=== PATIENT | female | born 1965 | race American Indian/Alaskan Native ===

== ENCOUNTER 2016-08-22 20:00 | Emergency (ER) | payer MEDICAID ==
[2016-08-22 20:01] VITALS: BMI 34.9
[2016-08-22 20:32] VITALS: BP 120/90; PULSE 82; RESP 20; TEMP 97.8; O2SAT 98
--- NOTE | 2016-08-22 22:16 | C.PDOC ---
History Of Present Illness 51 y/o female c/o pain to both arms radiating from neck, and low back pain radiating to both knees for some time, getting worse in last week. pt takes naproxen for pain but she says it raises her blood pressure. no fever or chills. denies swelling to hands. no wrist pain. pt also c/o urinary frequency and urgency, no dysuria. no saddle anesthesia. no bladder or bowel dysfunction. Time Seen by Provider: 08/22/16 21:51 Chief Complaint (Nursing): Lower Extremity Problem/Injury History Per: Patient Past Medical History Reviewed: Historical Data, Nursing Documentation, Vital Signs Vital Signs: Last Vital Signs Temp 97.8 F 08/22/16 20:30 Pulse 82 08/22/16 20:30 Resp 20 08/22/16 20:30 BP 120/90 08/22/16 20:30 Pulse Ox 98 08/22/16 22:45 - Medical History PMH: Anemia, Asthma, Gastritis, HTN, Migraine Denies: Chronic Kidney Disease Surgical History: No Surg Hx - [facility] Procedures RADICAL EXCIS SKIN LES (08/18/14) Family History: States: Unknown Family Hx - Social History Hx Tobacco Use: Yes Hx Alcohol Use: Yes Hx Substance Use: No - Immunization History Hx Tetanus Toxoid Vaccination: No Hx Influenza Vaccination: No Hx Pneumococcal Vaccination: No Review Of Systems Constitutional: Negative for: Fever, Chills ENT: Negative for: Ear Pain Cardiovascular: Negative for: Chest Pain, Palpitations Respiratory: Negative for: Cough, Shortness of Breath Gastrointestinal: Negative for: Nausea, Vomiting, Abdominal Pain Genitourinary: Positive for: Frequency. Negative for: Hematuria Musculoskeletal: Positive for: Neck Pain, Arm Pain, Back Pain, Leg Pain Skin: Negative for: Rash Neurological: Negative for: Weakness, Numbness Physical Exam - Physical Exam Appears: Non-toxic, No Acute Distress Skin: Normal Color, Warm, Dry Head: Atraumatic, Normacephalic Neck: Normal ROM, Paracervical Tenderness Chest: Symmetrical, No Deformity, No Tenderness Respiratory: Rales, Rhonchi Back: Other (bilateral lower lumbar tenderness) Neurological/Psych: Oriented x3, Normal Speech, Normal Cognition, Normal Motor, Normal Sensation ED Course And Treatment O2 Sat by Pulse Oximetry: 98 Medical Decision Making Medical Decision Making: pt feels better after toradol, will d/c wi clinic follow up Disposition Counseled Patient/Family Regarding: Diagnosis, Need For Followup - Disposition Referrals: [facility] [Outside] Disposition: HOME/ ROUTINE Disposition Time: 22:50 Condition: IMPROVED Additional Instructions: Follow up in clinic. Take blood pressure medicaitons as prescribed. Take Tylenol or motrin for pain. Return to ER for any weakness, numbness, worsening pain or other concerns. Forms: General Discharge Instructions - Clinical Impression Clinical Impression: Cervical radiculopathy, Low back pain
[2016-08-22 22:34] LABS: RBC URINE 2 /hpf (0-3); URINE BACTERIA RARE (<OCC); URINE BILIRUBIN NEGATIVE (NEGATIVE); URINE BLOOD NEGATIVE (NEGATIVE); URINE COLOR Yellow (YELLOW); URINE GLUCOSE (UA) NORMAL (Normal); URINE KETONE NEGATIVE (NEGATIVE); URINE LEUKOCYTE ESTERASE NEG Leu/uL (Negative); URINE PROTEIN NEGATIVE (NEGATIVE); URINE UROBILINOGEN NORMAL mg/dL (0.2-1.0); WBC URINE 1 /hpf (0-5)
== END 2016-08-22 22:58 | disposition home or self-care (01) ==
LOC: C.ER 20:00
DX: M54.12 Radiculopathy, cervical region (principal); M54.5 Low back pain
CPT/HCPCS: 81001; 96372; 99284; J1885

== ENCOUNTER 2016-09-18 20:00 | Emergency (ER) | payer MEDICAID ==
[2016-09-18 20:00] VITALS: BMI 34.9
--- NOTE | 2016-09-18 20:41 | C.PDOC ---
History Of Present Illness 51 y/o female presents to ED with complaints of fever, chills, cough, and unable to sleep for the last couple days. Patient speaking in complete sentences. Denies SOB, chest pain, nausea, vomiting, or other associated symptoms. Time Seen by Provider: 09/18/16 20:41 Chief Complaint (Nursing): Cough, Cold, Congestion History Per: Patient History/Exam Limitations: no limitations Onset/Duration Of Symptoms: Days Current Symptoms Are (Timing): Still Present Associated Symptoms: Fever, Chills, Cough. denies: Vomiting, Diarrhea Ear Symptoms: Bilateral: None Recent travel outside of the [place]: No Past Medical History Reviewed: Historical Data, Nursing Documentation, Vital Signs Vital Signs: Last Vital Signs Temp 98.2 F 09/18/16 20:10 Pulse 69 09/18/16 22:08 Resp 16 09/18/16 22:08 BP 131/86 09/18/16 22:08 Pulse Ox 96 09/18/16 22:08 - Medical History PMH: Anemia, Asthma, Gastritis, HTN, Migraine - [facility] Procedures RADICAL EXCIS SKIN LES (08/18/14) Family History: States: Unknown Family Hx - Social History Hx Tobacco Use: Yes Hx Alcohol Use: Yes Hx Substance Use: No - Immunization History Hx Tetanus Toxoid Vaccination: No Hx Influenza Vaccination: No Hx Pneumococcal Vaccination: No Review Of Systems Constitutional: Positive for: Fever, Chills ENT: Negative for: Throat Pain Cardiovascular: Negative for: Chest Pain Respiratory: Positive for: Cough. Negative for: Shortness of Breath Gastrointestinal: Negative for: Nausea, Vomiting Musculoskeletal: Negative for: Neck Pain Skin: Negative for: Rash Neurological: Negative for: Headache, Dizziness Physical Exam - Physical Exam Appears: Non-toxic, Other (speaking in complete sentences) Skin: Warm, Dry Head: Atraumatic, Normacephalic Eye(s): bilateral: Normal Inspection Nose: Normal Oral Mucosa: Moist Chest: Symmetrical, Tenderness (chest wall tenderness, worse with cough) Cardiovascular: Rhythm Regular, No Murmur Respiratory: No Accessory Muscle Use, No Rales, Rhonchi (scattered), No Wheezing Gastrointestinal/Abdominal: Soft, No Tenderness Back: Normal Inspection Extremity: Normal ROM, Capillary Refill (< 2 sec. ) Neurological/Psych: Oriented x3 ED Course And Treatment - Laboratory Results Result Diagrams: 09/18/16 21:46 09/18/16 21:46 O2 Sat by Pulse Oximetry: 100 (RA) Pulse Ox Interpretation: Normal - Radiology CXR: Interpreted by Me, Viewed By Me CXR Interpretation: No: Infiltrates, Fracture, Pnemothorax Progress Note: CxR, labs, duoneb, IVFs. Reevaluation Time: 22:30 Reassessment Condition: Improved Disposition Counseled Patient/Family Regarding: Studies Performed, Diagnosis, Need For Followup, Rx Given - Disposition Disposition Time: 20:41 Condition: FAIR Additional Instructions: Follow up with dr Powell Prescriptions: Albuterol HFA [Ventolin HFA 90 mcg/actuation (8 g)] 2 puff IH [id number] #1 puff Azithromycin [Zithromax Tri-Aris] 500 mg PO DAILY #3 tablet Naproxen [Naprosyn] 1 tab PO BID PRN #25 tab PRN Reason: Pain Instructions: Upper Respiratory Infection (ED) - Clinical Impression Clinical Impression: Upper respiratory infection - Scribe Statement The provider has reviewed the documentation as recorded by the Will Ricks Provider Scribe Attestation: All medical record entries made by the Scribe were at my direction and personally dictated by me. I have reviewed the chart and agree that the record accurately reflects my personal performance of the history, physical exam, medical decision making, and the department course for this patient. I have also personally directed, reviewed, and agree with the discharge instructions and disposition.
[2016-09-18] MEDS ORDERED: Sodium Chloride 0.9% 1,000 ML IV ONE (20:46)
[2016-09-18] MEDS: Albuterol-Ipratrop 3 mg / 0.5 (3 ml) UD IH SCH ×3 (21:00→21:40)
[2016-09-18] MEDS ORDERED: Albuterol-Ipratrop 3 mg / 0.5 (3 ml) UD ONE (21:43)
[2016-09-18 21:57] LABS: BASO % 0.6 % (0.0-2.0); EOS # 0.2 K/uL (0.0-0.7); EOS % 2.5 % (0.0-4.0); HEMATOCRIT 33.6 % (34.0-47.0); LYMPH # 3.1 K/uL (1.0-4.3); LYMPH % 39.3 % (20.0-40.0); MEAN CELL VOLUME 74.2 fL (81.0-99.0); MEAN CORPUSCULAR HEMOGLOBIN 23.8 pg (27.0-31.0); MEAN CORPUSCULAR HGB CONC 32.1 g/dL (33.0-37.0); MEAN PLATELET VOLUME 7.7 fL (7.2-11.7); MONO # 0.7 K/uL (0.0-0.8); MONO % 9.4 % (0.0-10.0); NRBC % 0.1 % (0.0-2.0); RBC URINE < 1 /hpf (0-3); URINE BILIRUBIN NEGATIVE (NEGATIVE); URINE BLOOD NEGATIVE (NEGATIVE); URINE COLOR Straw (YELLOW); URINE GLUCOSE (UA) NORMAL (Normal); URINE KETONE NEGATIVE (NEGATIVE); URINE LEUKOCYTE ESTERASE NEG Leu/uL (Negative); URINE PROTEIN NEGATIVE (NEGATIVE); URINE UROBILINOGEN NORMAL mg/dL (0.2-1.0); WBC URINE 1 /hpf (0-5); WHITE BLOOD COUNT 7.8 K/uL (4.8-10.8)
[2016-09-18 21:59] LABS: CHLORIDE 101 mmol/L (98-107); POTASSIUM 3.6 mmol/L (3.6-5.2); SODIUM 138 mmol/L (132-148)
[2016-09-18 22:01] LABS: BILIRUBIN,TOTAL 0.2 mg/dL (0.2-1.3); CARBON DIOXIDE 27 mmol/L (22-30); GFR AFRICAN-AMERICAN > 60
[2016-09-18 22:02] LABS: ALB/GLOB RATIO 1.2 (1.0-2.1); ALKALINE PHOSPHATASE 75 U/L (38-126); ALT/SGPT 22 U/L (9-52); AST/SGOT 24 U/L (14-36); BLOOD UREA NITROGEN 17 mg/dL (7-17); CALCIUM 9.4 mg/dl (8.6-10.4); GLUCOSE,RANDOM 91 mg/dL (65-105); TOTAL PROTEIN 7.8 g/dL (6.3-8.3)
[2016-09-18 22:09] VITALS: RESP 16
[2016-09-18 23:37] VITALS: BP 129/73; PULSE 76; TEMP 98.5; O2SAT 98
--- NOTE | 2016-09-19 07:56 | RAD ---
HISTORY: Shortness of breath COMPARISON: 07/12/2016 TECHNIQUE: Chest PA and lateral FINDINGS: LUNGS: Diffuse increased interstitial lung markings may represent a mild venous congestion. Bibasilar breast and nipple shadows. Upper lobe granulomatous changes. PLEURA: No significant pleural effusion identified. No pneumothorax apparent. CARDIOVASCULAR: Normal. OSSEOUS STRUCTURES: No significant abnormalities. VISUALIZED UPPER ABDOMEN: Normal. OTHER FINDINGS: None. IMPRESSION: Diffuse increased interstitial lung markings may represent a mild venous congestion. Bibasilar breast and nipple shadows. Upper lobe granulomatous changes.
== END 2016-09-18 23:37 | disposition home or self-care (01) ==
LOC: C.ER 20:00
DX: J06.9 Acute upper respiratory infection, unspecified (principal); Z72.0 Tobacco use
CPT/HCPCS: 71020; 80053; 81001; 84703; 85025; 94640; 96361; 96374; 99284; J1885; J7040

== ENCOUNTER 2016-10-16 10:52 | Emergency (ER) | payer MEDICAID ==
[2016-10-16 10:53] VITALS: BMI 34.9
[2016-10-16 11:02] VITALS: BP 119/84; PULSE 84; RESP 18; TEMP 98.1; O2SAT 99
[2016-10-16] MEDS ORDERED: Lidocaine 5% Patch TD STA (11:30)
--- NOTE | 2016-10-16 11:32 | C.PDOC ---
History Of Present Illness WORSENING R LOWER BACK/R NECK PAIN X SEV MONTHS. SEEN FOR SAME BEFORE, PS NEEDS NEW PMD BUT HAS NOT FOUND ONE SINCE PRIOR ER EVAL. RELIEF W NAPROSYN "BUT PAIN KEEPS RETURNING". RADIATION R SIDE LOWER LEG, WORSE W PROLONGED WALKING. + RADIATION RUE. NO ASSOC WEAK/NUMB, FEVER, TRAUMA ALSO CO POLYURIA. NO DYSURIA, HO DM. EXAM MILD DIST NONTOXIC NEURO INTACT LIMITED ROM BACK Time Seen by Provider: 10/16/16 11:15 Chief Complaint (Nursing): Lower Extremity Problem/Injury Past Medical History Reviewed: Historical Data, Nursing Documentation, Vital Signs Vital Signs: Last Vital Signs Temp 98.1 F 10/16/16 10:58 Pulse 84 10/16/16 10:58 Resp 18 10/16/16 10:58 BP 119/84 10/16/16 10:58 Pulse Ox 99 10/16/16 12:02 - Medical History PMH: Anemia, Asthma, Gastritis, HTN, Migraine Denies: Chronic Kidney Disease - [facility] Procedures RADICAL EXCIS SKIN LES (08/18/14) Family History: States: Unknown Family Hx - Social History Hx Tobacco Use: Yes Hx Alcohol Use: Yes Hx Substance Use: No - Immunization History Hx Tetanus Toxoid Vaccination: No Hx Influenza Vaccination: No Hx Pneumococcal Vaccination: No Review Of Systems Except As Marked, All Systems Reviewed And Found Negative. Constitutional: Negative for: Fever, Chills Cardiovascular: Negative for: Chest Pain, Palpitations Respiratory: Negative for: Shortness of Breath Gastrointestinal: Negative for: Nausea, Vomiting Genitourinary: Positive for: Dysuria, Frequency Musculoskeletal: Positive for: Neck Pain, Arm Pain, Back Pain, Leg Pain Physical Exam - Physical Exam Appears: Non-toxic, No Acute Distress (MILD) Skin: Warm, Dry, No Rash Head: Atraumatic Eye(s): bilateral: Normal Inspection Oral Mucosa: Moist Lips: Normal Appearing Neck: Normal ROM Cardiovascular: Rhythm Regular, No Murmur Respiratory: Normal Breath Sounds Back: Decreased ROM (secondary to pain) Extremity: Normal ROM Neurological/Psych: Oriented x3 ED Course And Treatment O2 Sat by Pulse Oximetry: 99 Progress - Data Reviewed Data Reviewed: Lab, Old records Disposition Counseled Patient/Family Regarding: Studies Performed, Diagnosis, Need For Followup, Rx Given - Disposition Referrals: [facility] [Outside] [facility] [Outside] Disposition: HOME/ ROUTINE Disposition Time: 12:00 Condition: IMPROVED Prescriptions: Cyclobenzaprine [Flexeril] 10 mg PO TID #15 tab Lidocaine 5% [Lidoderm] 1 ea TD PRN PRN #10 patch PRN Reason: Pain, Moderate (4-7) Instructions: Sciatica (ED) Forms: Work Excuse - Clinical Impression Clinical Impression: Radiculopathy affecting upper extremity, Radiculopathy with lower extremity symptoms - Scribe Statement The provider has reviewed the documentation as recorded by the Will Simon All medical record entries made by the Sadieibabdiel were at my direction and personally dictated by me. I have reviewed the chart and agree that the record accurately reflects my personal performance of the history, physical exam, medical decision making, and the department course for this patient. I have also personally directed, reviewed, and agree with the discharge instructions and disposition.
[2016-10-16] MEDS ORDERED: Lidocaine 5% Patch TD ONE ×2 (11:37→12:11)
[2016-10-16 11:49] LABS: RBC URINE 1 /hpf (0-3); URINE BILIRUBIN NEGATIVE (NEGATIVE); URINE BLOOD NEGATIVE (NEGATIVE); URINE COLOR Yellow (YELLOW); URINE GLUCOSE (UA) NORMAL (Normal); URINE KETONE NEGATIVE (NEGATIVE); URINE LEUKOCYTE ESTERASE NEG Leu/uL (Negative); URINE PROTEIN NEGATIVE (NEGATIVE); URINE UROBILINOGEN NORMAL mg/dL (0.2-1.0); WBC URINE < 1 /hpf (0-5)
== END 2016-10-16 12:15 | disposition home or self-care (01) ==
LOC: C.ER 10:52
DX: M54.10 Radiculopathy, site unspecified (principal); I10 Essential (primary) hypertension
CPT/HCPCS: 81001; 87086; 99284; J8540

== ENCOUNTER 2016-12-09 00:56 | Emergency (ER) | payer MEDICAID ==
[2016-12-09 00:56] VITALS: BMI 34.9
[2016-12-09] MEDS ORDERED: Alum-Mag Hydrox-Simethicone Susp (30 mL) PO STA (01:33)
[2016-12-09] MEDS ORDERED: Alum-Mag Hydrox-Simethicone Susp (30 mL) ONE (01:43)
[2016-12-09 02:16] LABS: SQUAMOUS EPITHIAL 5 /hpf (0-5); URINE BILIRUBIN NEGATIVE (NEGATIVE); URINE BLOOD 1+ (NEGATIVE); URINE CLARITY Clear (Clear); URINE COLOR Straw (YELLOW); URINE GLUCOSE (UA) NORMAL (Normal); URINE LEUKOCYTE ESTERASE NEG Leu/uL (Negative); URINE NITRATE NEGATIVE (NEGATIVE); URINE PROTEIN NEGATIVE (NEGATIVE); URINE UROBILINOGEN NORMAL mg/dL (0.2-1.0)
[2016-12-09 02:16] LABS: BASO # 0.1 K/uL (0.0-0.2); BASO % 1.1 % (0.0-2.0); EOS # 0.3 K/uL (0.0-0.7); EOS % 3.8 % (0.0-4.0); LYMPH % 43.8 % (20.0-40.0); MEAN CELL VOLUME 74.8 fL (81.0-99.0); MEAN CORPUSCULAR HGB CONC 30.7 g/dL (33.0-37.0); MEAN PLATELET VOLUME 7.9 fL (7.2-11.7); MONO # 0.6 K/uL (0.0-0.8); MONO % 8.2 % (0.0-10.0); NEUT % 43.1 % (50.0-75.0); NRBC % 0.1 % (0.0-2.0); RBC 4.81 Mil/uL (3.80-5.20); WHITE BLOOD COUNT 6.9 K/uL (4.8-10.8)
[2016-12-09 02:24] LABS: ALB/GLOB RATIO 1.1 (1.0-2.1); AST/SGOT 24 U/L (14-36); BLOOD UREA NITROGEN 18 mg/dL (7-17); GFR AFRICAN-AMERICAN > 60; GFR NON-AFRICAN AMERICAN 58
[2016-12-09 02:25] LABS: ALT/SGPT 28 U/L (9-52); CALCIUM 9.2 mg/dl (8.6-10.4); LIPASE 96 U/L (23-300)
[2016-12-09 02:29] LABS: HCG,QUALITATIVE URINE NEGATIVE (NEGATIVE)
[2016-12-09 02:46] VITALS: BP 120/82; PULSE 72; RESP 16; TEMP 98.2; O2SAT 99
[2016-12-09 02:46] LABS: INR 1.1; PROTHROMBIN TIME 12.7 SECONDS (9.7-12.2)
[2016-12-09] MEDS ORDERED: Iodixanol 320 MG/ML 100 ML BOTTLE IV ONE (03:48)
--- NOTE | 2016-12-09 05:26 | CT ---
EXAM: CT Angiography Chest With Intravenous Contrast CLINICAL HISTORY: 51 years old, female; Pain; Chest pain; Left-sided chest pain; Additional info: Left lower chest pain. R/O pe TECHNIQUE: Axial computed tomographic angiography images of the chest with intravenous contrast using pulmonary embolism protocol. This CT exam was performed using one or more of the following dose reduction techniques: automated exposure control, adjustment of the mA and/or kV according to patient size, and/or use of iterative reconstruction technique. MIP reconstructed images were created and reviewed. Coronal and sagittal reformatted images were created and reviewed. CONTRAST: 100 mL of [id number] administered intravenously. COMPARISON: No relevant prior studies available. FINDINGS: Pulmonary arteries: No pulmonary embolism. Aorta: No thoracic aortic aneurysm. Lungs: No mass. No consolidation. A moderate hiatal hernia is present. Pleural spaces: No significant effusion. No pneumothorax. Heart: No cardiomegaly. No significant pericardial effusion. No evidence of right heart dysfunction. Bones: No acute fracture. Lymph nodes: No pathologically enlarged lymph nodes. IMPRESSION: No pulmonary embolism. Moderate hiatal hernia.
--- NOTE | 2016-12-09 05:38 | C.PDOC ---
History Of Present Illness Pt c/o left lower chest/LUQ pain. Time Seen by Provider: 12/09/16 01:24 Chief Complaint (Nursing): Chest Pain History Per: Patient Onset/Duration Of Symptoms: Days (about 1 week), Persistent Current Symptoms Are (Timing): Still Present Severity: Moderate Quality: Pressure, "Pain" Associated Symptoms: denies: Dyspnea, Diaphoresis, Syncope Modifying Factors: Other Indicated Below Alleviating Factors: None Additional History Per: Prior Records Past Medical History Reviewed: Historical Data, Nursing Documentation, Vital Signs Vital Signs: Last Vital Signs Temp 98.2 F 12/09/16 02:45 Pulse 72 12/09/16 02:45 Resp 16 12/09/16 02:45 BP 120/82 12/09/16 02:45 Pulse Ox 99 12/09/16 02:45 - Medical History PMH: Anemia, Asthma, Gastritis, Gall Bladder Disease, HTN, Migraine - [facility] Procedures RADICAL EXCIS SKIN LES (08/18/14) Family History: States: Unknown Family Hx - Social History Hx Tobacco Use: Yes Hx Alcohol Use: Yes Hx Substance Use: No - Immunization History Hx Tetanus Toxoid Vaccination: No Hx Influenza Vaccination: No Hx Pneumococcal Vaccination: No Review Of Systems Except As Marked, All Systems Reviewed And Found Negative. Constitutional: Negative for: Fever, Weakness Respiratory: Negative for: Shortness of Breath, Hemoptysis Gastrointestinal: Negative for: Vomiting Musculoskeletal: Negative for: Neck Pain Skin: Negative for: Rash Neurological: Negative for: Weakness, Numbness, Seizures, Altered Mental Status Physical Exam - Physical Exam Appears: Non-toxic, No Acute Distress Skin: Normal Color, Warm, Dry, No Rash Head: Atraumatic, Normacephalic Eye(s): bilateral: Normal Inspection, PERRL, EOMI Neck: Normal ROM, Supple Chest: Symmetrical, No Deformity Cardiovascular: Rhythm Regular Respiratory: Normal Breath Sounds, No Accessory Muscle Use Gastrointestinal/Abdominal: Soft, No Tenderness Back: No CVA Tenderness Extremity: Normal ROM, No Calf Tenderness Neurological/Psych: Oriented x3, Normal Motor, Normal Sensation ED Course And Treatment - Laboratory Results Result Diagrams: 12/09/16 02:04 12/09/16 02:04 Urine POC: Negative ECG: Interpreted By Me, Viewed By Me ECG Rhythm: Sinus Rhythm ECG Interpretation: No Acute Changes Rate From EC O2 Sat by Pulse Oximetry: 99 Pulse Ox Interpretation: Normal - CT Scan/US CTA of chest Other Rad Studies (CT/US): Read By Radiologist, Radiology Report Reviewed CT/US Interpretation: IMPRESSION: No pulmonary embolism. Moderate hiatal hernia. Reassessment Condition: Improved Disposition Counseled Patient/Family Regarding: Studies Performed, Diagnosis, Need For Followup, Rx Given - Disposition Disposition: HOME/ ROUTINE Disposition Time: 05:39 Condition: STABLE Additional Instructions: Follow up with a Social Media Director for further evaluation and treatment. Return to the ER if you develop shortness of breath, dizziness, worsening of symptoms or if you have any other concerns. Prescriptions: Pantoprazole Sodium [Protonix] 40 mg PO DAILY #14 ect Instructions: Hiatal Hernia (ED) - Clinical Impression Clinical Impression: Hiatal hernia
--- NOTE | 2016-12-10 12:42 | CARD ---
APPROVED REPORT EKG Measurement Heart [id number] <Conclusion> Normal sinus rhythm Normal ECG
== END 2016-12-09 05:56 | disposition home or self-care (01) ==
LOC: C.ER 00:56
DX: K44.9 Diaphragmatic hernia without obstruction or gangrene (principal)
CPT/HCPCS: 71275; 80053; 81001; 83690; 83880; 84484; 84703; 85025; 85378; 85610; 85730; 93005; 99284; Q9967

== ENCOUNTER 2016-12-24 08:55 | Day surgery (SDC) | payer MEDICAID ==
[2016-12-19 11:45] VITALS: BMI 34.7
[2016-12-24] MEDS ORDERED: Doxycycline 100 mg Inj ONE (12:22)
[2016-12-24] MEDS ORDERED: Midazolam 2 MG/2 ML VIAL ONE (12:25)
[2016-12-24] MEDS ORDERED: Propofol 10 mg/ml Inj (20 ML) ONE (12:25)
[2016-12-24] MEDS ORDERED: Lactated Ringer's 1,000 ML IV ONE ×2 (12:25→15:00)
[2016-12-24] MEDS ORDERED: Rocuronium 10 mg/ml (5 ml) ONE (12:26)
[2016-12-24] MEDS ORDERED: Succinylcholine Chloride 20 mg/ml Syr (5 ml) IV ONE (12:26)
[2016-12-24] MEDS ORDERED: Neostigmine Methylsulfate 3mg/3ml Syringe IV ONE (12:58)
[2016-12-24] MEDS ORDERED: Oxycodone/Acetaminophen 5/325 mg Tab PO PRN (13:12)
[2016-12-24] MEDS ORDERED: HYDROmorphone 0.5 mg/0.5 ml ISec ONE (13:24)
[2016-12-24] MEDS: HYDROmorphone 0.5 mg/0.5 ml ISec IVP PRN ×2 (13:35→14:04)
[2016-12-24 15:57] VITALS: BP 103/70; PULSE 87; RESP 18; TEMP 97.5; O2SAT 100
--- NOTE | 2016-12-24 20:46 | OP ---
PROCEDURE DATE: 12/24/2016 PREOPERATIVE DIAGNOSIS: Acute and chronic cholecystitis. POSTOPERATIVE DIAGNOSES: Acute and chronic cholecystitis and umbilical hernia. PROCEDURE PERFORMED: Laparoscopic cholecystectomy, repair of umbilical hernia. SURGEON: Dr. Slade. DESK OPERATOR: General. ESTIMATED BLOOD LOSS: 20 mL. POSTOP CONDITION: Stable. INDICATIONS FOR SURGERY: This is a 51-year-old female presents with history of gallstones and chronic biliary colic for elective laparoscopic cholecystectomy. GROSS FINDINGS: Incidental finding of an umbilical hernia. Also on cutdown, the gallbladder had evidence of mild chronic cholecystitis. DESCRIPTION OF PROCEDURE: The patient was taken to the operating room and placed in a supine position. General anesthesia was administered and the abdomen was prepped and draped, the periumbilical cutdown was performed. The umbilical hernia was encountered and excised and was inserted. The abdomen was insufflated with CO2 under direct and under vision, remaining ports were replaced. The gallbladder was carefully retracted and cystic duct was carefully dissected free. The cystic duct, common duct, and cystic duct gallbladder junction were clearly identified, the cystic duct was then clipped and divided. The cystic artery was identified, clipped and divided. Gallbladder was then removed from the bed using the cautery. Bleeding was controlled using the cautery. A small medial liver was repaired laparoscopically. The abdomen was irrigated with saline until clear. The ports were removed. The umbilical hernia defect was closed with an interrupted heavy Vicryl sutures. The skin was closed with subcuticular Monocryl and glue. The patient tolerated the procedure well, transferred to recovery room in stable condition. Jose Alejandro Slade MD
== END 2016-12-24 16:00 | disposition home or self-care (01) ==
LOC: C.SDS 08:55
PROVIDERS: ATTEND Surgery
DX: K80.12 Calculus of gallbladder with acute and chronic cholecystitis without obstruction (principal); K42.9 Umbilical hernia without obstruction or gangrene
CPT/HCPCS: 47562; 49652; 88304; C1713; J1100; J1170; J2001; J2250; J2405; J2704; J2710; J3010; J7040; J7120

== ENCOUNTER 2017-01-10 10:46 | Emergency (ER) | payer MEDICAID ==
[2017-01-10 10:47] VITALS: BMI 34.7
[2017-01-10] MEDS ORDERED: Aspirin 325 mg EC Tablets PO STA (11:25)
[2017-01-10] MEDS ORDERED: Aspirin 325 mg EC Tablets PO ONE (11:43)
--- NOTE | 2017-01-10 11:56 | RAD ---
HISTORY: chest pain COMPARISON: Chest x-ray performed 09/18/16 TECHNIQUE: Chest, one view. FINDINGS: Examination limited by habitus. LUNGS: No focal consolidation. Please note that chest x-ray has limited sensitivity for the detection of pulmonary masses. PLEURA: No significant pleural effusion identified. No definite pneumothorax . CARDIOVASCULAR: Heart size appears within normal limits. OSSEOUS STRUCTURES: No acute osseous abnormality identified. VISUALIZED UPPER ABDOMEN: Unremarkable. OTHER FINDINGS: None. IMPRESSION: No acute findings.
[2017-01-10 12:00] LABS: BASO # 0.1 K/uL (0.0-0.2); BASO % 1.1 % (0.0-2.0); EOS # 0.1 K/uL (0.0-0.7); EOS % 2.8 % (0.0-4.0); HEMATOCRIT 32.2 % (34.0-47.0); LYMPH # 2.1 K/uL (1.0-4.3); MEAN CELL VOLUME 73.9 fL (81.0-99.0); MEAN CORPUSCULAR HEMOGLOBIN 23.3 pg (27.0-31.0); MEAN CORPUSCULAR HGB CONC 31.6 g/dL (33.0-37.0); MEAN PLATELET VOLUME 7.7 fL (7.2-11.7); MONO # 0.4 K/uL (0.0-0.8); MONO % 7.9 % (0.0-10.0); RED CELL DISTRIBUTION WIDTH 14.4 % (11.5-14.5); WHITE BLOOD COUNT 5.2 K/uL (4.8-10.8)
[2017-01-10 12:13] LABS: CHLORIDE 105 mmol/L (98-107); POTASSIUM 3.6 mmol/L (3.6-5.2); SODIUM 140 mmol/L (132-148)
[2017-01-10 12:15] LABS: GFR AFRICAN-AMERICAN > 60
[2017-01-10 12:16] LABS: ALB/GLOB RATIO 1.1 (1.0-2.1); ALKALINE PHOSPHATASE 79 U/L (38-126); ALT/SGPT 26 U/L (9-52); AST/SGOT 17 U/L (14-36); BILIRUBIN,TOTAL 0.5 mg/dL (0.2-1.3); BLOOD UREA NITROGEN 13 mg/dL (7-17); CALCIUM 9.1 mg/dl (8.6-10.4); CARBON DIOXIDE 27 mmol/L (22-30); GLUCOSE,RANDOM 96 mg/dL (65-105); TOTAL PROTEIN 7.1 g/dL (6.3-8.3)
--- NOTE | 2017-01-10 12:17 | C.PDOC ---
History Of Present Illness 51 year old female presents to the ED with complaints of left arm pain and high blood pressure beginning today. Patient also has runny nose and cough for two days. She notes a history of left arm pain which is worsened with movement and associated with paresthesia. Patient reports has a history of a pinched nerve in the neck. Patient took 320 mg blood pressure medication today but notes she is inconsistent with her medication. She denies SOB, pleuritic pain, trauma, back pain, numbness, weakness, nausea, vomiting, or diarrhea. Time Seen by Provider: 01/10/17 11:06 Chief Complaint (Nursing): High Blood Pressure History Per: Patient History/Exam Limitations: no limitations Onset/Duration Of Symptoms: Hrs (left arm pain ), Days (runny nose and cough) Current Symptoms Are (Timing): Still Present Associated Symptoms: denies: Chest Pain, Dyspnea, Headache Exacerbating Factor(s): Pos: None Recent travel outside of the [place]: No Additional History Per: Prior Records Past Medical History Reviewed: Historical Data, Nursing Documentation, Vital Signs Vital Signs: Last Vital Signs Temp 98.5 F 01/10/17 13:30 Pulse 86 01/10/17 13:30 Resp 18 01/10/17 13:30 BP 159/98 H 01/10/17 13:30 Pulse Ox 98 01/10/17 13:30 - Medical History PMH: Anemia, Asthma (never hospitalized), Gastritis, Gall Bladder Disease, HTN, Migraine Denies: Chronic Kidney Disease Surgical History: Endoscopy - [facility] Procedures RADICAL EXCIS SKIN LES (08/18/14) Family History: States: Unknown Family Hx - Social History Hx Tobacco Use: Yes Hx Alcohol Use: Yes Hx Substance Use: No - Immunization History Hx Tetanus Toxoid Vaccination: No Hx Influenza Vaccination: No Hx Pneumococcal Vaccination: No Review Of Systems Except As Marked, All Systems Reviewed And Found Negative. Constitutional: Negative for: Fever, Chills ENT: Positive for: Nose Discharge Cardiovascular: Negative for: Chest Pain, Palpitations Respiratory: Positive for: Cough. Negative for: Shortness of Breath Gastrointestinal: Negative for: Nausea, Vomiting, Abdominal Pain, Diarrhea Musculoskeletal: Positive for: Arm Pain (Left arm pain ) Neurological: Negative for: Weakness, Numbness Physical Exam - Physical Exam Appears: Non-toxic, No Acute Distress Skin: Warm, Dry, No Rash Head: Atraumatic, Normacephalic Eye(s): bilateral: Normal Inspection, PERRL, EOMI Nose: Normal, No Discharge Oral Mucosa: Moist Throat: Normal, No Erythema, No Exudate Neck: Normal ROM, No Midline Cervical Tenderness, Paracervical Tenderness (left sided), Supple Chest: Symmetrical, No Deformity, No Tenderness Cardiovascular: Rhythm Regular, No Friction Rub Respiratory: Normal Breath Sounds, No Rales, No Rhonchi, No Stridor, No Wheezing Gastrointestinal/Abdominal: Bowel Sounds (active), Soft, No Tenderness Extremity: Normal ROM, No Tenderness, No Pedal Edema, No Calf Tenderness, Capillary Refill (good capillary refill, less than two seconds ), No Deformity, No Swelling Neurological/Psych: Oriented x3, Normal Speech, Normal Cranial Nerves, Normal Motor, Normal Sensation Gait: Steady ED Course And Treatment - Laboratory Results Result Diagrams: 01/10/17 11:52 01/10/17 11:52 ECG: Interpreted By Me, Viewed By Me ECG Rhythm: Sinus Rhythm (83 bpm ), R BBB ECG Interpretation: No Changes From Prior (Compared to EKG from 12/09/2016. Discussed with Dr. Love, agrees EKGs are similar. ) Interpretation Of ECG: Left Eagle Deviation. O2 Sat by Pulse Oximetry: 100 (room air ) Pulse Ox Interpretation: Normal - Radiology CXR: Interpreted by Me CXR Interpretation: Yes: No Acute Disease. No: Infiltrates Progress Note: EKG and CXR were performed. Patient was given Ecotrin. Disposition - Disposition Referrals: Yakov Powell MD [Medical Doctor] - Disposition: HOME/ ROUTINE Disposition Time: 13:11 Condition: GOOD Additional Instructions: Follow up with the medical doctor within 1-2 days. Return if worsened. Prescriptions: Cyclobenzaprine [Flexeril] 5 mg PO TID #21 tab Loratadine [Claritin] 10 mg PO DAILY #10 tab predniSONE [Prednisone] 20 mg PO BID #10 tab Instructions: Cervical Radiculopathy (ED), Hypertension (DC) Forms: [facility] (Bulgarian) - Clinical Impression Clinical Impression: Hypertension, Cervical radiculopathy, Bronchitis - Scribe Statement The provider has reviewed the documentation as recorded by the Scribe Loretta Faustin All medical record entries made by the Scribe were at my direction and personally dictated by me. I have reviewed the chart and agree that the record accurately reflects my personal performance of the history, physical exam, medical decision making, and the department course for this patient. I have also personally directed, reviewed, and agree with the discharge instructions and disposition.
[2017-01-10 13:44] VITALS: BP 159/98; PULSE 86; RESP 18; TEMP 98.5
[2017-01-12 13:35] VITALS: O2SAT 100
--- NOTE | 2017-01-13 18:05 | CARD ---
APPROVED REPORT EKG Measurement Heart [id number] <Conclusion> Sinus rhythm with fusion complexes Left axis deviation Incomplete right bundle branch block Minimal voltage criteria for LVH, may be normal variant Abnormal ECG
== END 2017-01-10 13:30 | disposition home or self-care (01) ==
LOC: C.ER 10:46
DX: M54.12 Radiculopathy, cervical region (principal); J40 Bronchitis, not specified as acute or chronic; I10 Essential (primary) hypertension
CPT/HCPCS: 71010; 80053; 84484; 85025; 93005; 96374; 99285; J1885

== ENCOUNTER 2017-02-01 | Emergency (ER) | payer MEDICAID, OTHER ==
[2017-02-01] VITALS: BMI 34.7
[2017-02-01 00:05] VITALS: TEMP 98
--- NOTE | 2017-02-01 01:38 | C.PDOC ---
History Of Present Illness 52 y/o F c PMHx HTN p/w high blood pressure and facial pressure. Patient states that her blood pressure has been high all day. She took an extra Losartan earlier today. She denies vision change, chest pain, dyspnea. She has been in this ED multiple times for elevated blood pressure. She also notes facial congestion, has been taking Advil Cold and Sinus, using humidifier but without much relief. Time Seen by Provider: 02/01/17 00:54 Chief Complaint (Nursing): High Blood Pressure Past Medical History Vital Signs: Last Vital Signs Temp 98 F 02/01/17 00:03 Pulse 56 L 02/01/17 00:40 Resp 16 02/01/17 00:40 BP 154/94 H 02/01/17 00:40 Pulse Ox 97 02/01/17 00:40 - Medical History PMH: Anemia, Asthma (never hospitalized), Gastritis, Gall Bladder Disease, HTN, Migraine Denies: Chronic Kidney Disease Surgical History: Endoscopy - [facility] Procedures RADICAL EXCIS SKIN LES (08/18/14) Family History: States: Unknown Family Hx - Social History Hx Tobacco Use: Yes Hx Alcohol Use: Yes Hx Substance Use: No - Immunization History Hx Tetanus Toxoid Vaccination: No Hx Influenza Vaccination: No Hx Pneumococcal Vaccination: No Review Of Systems Except As Marked, All Systems Reviewed And Found Negative. Constitutional: Negative for: Fever Cardiovascular: Negative for: Chest Pain Physical Exam - Physical Exam Appears: No Acute Distress Skin: Normal Color Head: Atraumatic, Normacephalic Eye(s): bilateral: PERRL Oral Mucosa: Moist Throat: No Erythema, No Exudate Neck: Supple Cardiovascular: Rhythm Regular Respiratory: Normal Breath Sounds Gastrointestinal/Abdominal: Soft, No Tenderness Back: No CVA Tenderness Extremity: No Tenderness, No Swelling Pulses: Left Radial: Normal, Right Radial: Normal Neurological/Psych: Normal Speech, Normal Cognition ED Course And Treatment O2 Sat by Pulse Oximetry: 97 Medical Decision Making Medical Decision Making: EKG NSR 56 bpm, no ST elevations or depressions. Patient in no acute distress. Blood pressure improved during ER stay without any intervention. Discharge home, advised continue HTN medication as prescribed, f/u PMD, return to ED for acute chest pain, dyspnea, vomiting, or any other problem. Disposition - Disposition Disposition: HOME/ ROUTINE Disposition Time: 01:51 Condition: STABLE Instructions: Nasal Rinse (ED) Forms: [facility] ([place]) - Clinical Impression Clinical Impression: Hypertension, Sinus congestion
[2017-02-01 02:31] VITALS: BP 143/88; PULSE 64; RESP 18; O2SAT 99
--- NOTE | 2017-02-01 12:16 | CARD ---
APPROVED REPORT EKG Measurement Heart [id number] RI 216P7 [id number] <Conclusion> Sinus bradycardia with 1st degree AV block Left axis deviation Incomplete right bundle branch block Minimal voltage criteria for LVH, may be normal variant Abnormal ECG
== END 2017-02-01 02:31 | disposition home or self-care (01) ==
LOC: C.ER
DX: I10 Essential (primary) hypertension (principal); R09.81 Nasal congestion

== ENCOUNTER 2017-02-07 01:07 | Emergency (ER) | payer OTHER ==
[2017-02-07 01:07] VITALS: BMI 34.7
[2017-02-07 01:16] VITALS: RESP 16
--- NOTE | 2017-02-07 01:35 | C.PDOC ---
History Of Present Illness patient presents with abdominal pain, cramping worsening today. Has been taking some tylenol #3 for her wrist pain. Cramping mid-epigastric pain. Time Seen by Provider: 02/07/17 01:35 Chief Complaint (Nursing): Abdominal Pain History Per: Patient History/Exam Limitations: no limitations Onset/Duration Of Symptoms: Hrs Current Symptoms Are (Timing): Still Present Context: Other Severity: Moderate Pain Scale Rating Of: 4 Location Of Pain/Discomfort: Epigastric Radiation Of Pain To:: None Quality Of Discomfort: Aching, Cramping Associated Symptoms: denies: Fever, Chills, Nausea, Vomiting Exacerbating Factors: None Alleviating Factors: None Last Bowel Movement: Yesterday Recent travel outside of the [place]: No Additional History Per: Patient Past Medical History Reviewed: Historical Data, Nursing Documentation, Vital Signs Vital Signs: Last Vital Signs Temp 97.7 F 02/07/17 03:53 Pulse 58 L 02/07/17 03:53 Resp 16 02/07/17 03:53 BP 141/94 H 02/07/17 03:53 Pulse Ox 100 02/07/17 03:53 - Medical History PMH: Anemia, Asthma (never hospitalized), Gastritis, Gall Bladder Disease, HTN, Migraine Denies: Chronic Kidney Disease Surgical History: Endoscopy - [facility] Procedures RADICAL EXCIS SKIN LES (08/18/14) Family History: States: No Known Family Hx - Social History Hx Tobacco Use: Yes Hx Alcohol Use: Yes Hx Substance Use: No - Immunization History Hx Tetanus Toxoid Vaccination: No Hx Influenza Vaccination: No Hx Pneumococcal Vaccination: No Review Of Systems Constitutional: Negative for: Fever, Chills ENT: Negative for: Throat Pain Cardiovascular: Negative for: Chest Pain Respiratory: Negative for: Shortness of Breath Gastrointestinal: Positive for: Abdominal Pain. Negative for: Nausea, Vomiting Genitourinary: Negative for: Dysuria Musculoskeletal: Negative for: Back Pain Skin: Negative for: Rash Neurological: Negative for: Weakness Psych: Negative for: Anxiety Physical Exam - Physical Exam Appears: Non-toxic, No Acute Distress Skin: Warm, Dry Head: Normacephalic Eye(s): bilateral: Normal Inspection Oral Mucosa: Moist Neck: Supple Chest: Symmetrical Cardiovascular: Rhythm Regular Respiratory: No Rales, No Rhonchi, No Wheezing Gastrointestinal/Abdominal: Bowel Sounds (tympanic to percussion), Soft, Tenderness (mid epigastri), Distention, No Guarding, No Rebound Back: No CVA Tenderness Extremity: Normal ROM Extremity: Bilateral: Atraumatic Neurological/Psych: Oriented x3, Normal Speech, Normal Cognition Gait: Steady ED Course And Treatment - Laboratory Results Result Diagrams: 02/07/17 02:35 02/07/17 02:35 O2 Sat by Pulse Oximetry: 98 Pulse Ox Interpretation: Normal - Radiology CXR: Interpreted by Me CXR Interpretation: No: Infiltrates, Fracture, Pnemothorax - Other Rad obstre X-Ray: Interpreted by Me, Viewed By Me Interpretation: lots of stool and gas, no obstruction Disposition Counseled Patient/Family Regarding: Studies Performed, Diagnosis, Need For Followup, Rx Given - Disposition Referrals: Yakov Powell MD [Medical Doctor] - Disposition: HOME/ ROUTINE Disposition Time: 01:35 Condition: FAIR Prescriptions: Dicyclomine [Dicyclomine HCl] 10 mg PO TID PRN #12 cap PRN Reason: abdominal spasms Polyethylene Glycol 3350 [Miralax] 17 gm PO DAILY #270 ml Instructions: Abdominal Pain (ED), Gas and Bloating (ED), Constipation (DC) Forms: [facility] (Serbian) - Clinical Impression Clinical Impression: Constipation, Abdominal pain
[2017-02-07 02:09] LABS: RBC URINE 2 /hpf (0-3); URINE BILIRUBIN NEGATIVE (NEGATIVE); URINE BLOOD NEGATIVE (NEGATIVE); URINE COLOR Yellow (YELLOW); URINE GLUCOSE (UA) NORMAL (Normal); URINE KETONE NEGATIVE (NEGATIVE); URINE LEUKOCYTE ESTERASE NEG Leu/uL (Negative); URINE PROTEIN NEGATIVE (NEGATIVE); URINE UROBILINOGEN NORMAL mg/dL (0.2-1.0); WBC URINE 1 /hpf (0-5)
[2017-02-07] MEDS ORDERED: Sodium Chloride 0.9% 1,000 ML IV ONE (02:25)
[2017-02-07 02:43] LABS: BASO % 0.4 % (0.0-2.0); EOS # 0.2 K/uL (0.0-0.7); EOS % 2.1 % (0.0-4.0); LYMPH # 3.4 K/uL (1.0-4.3); LYMPH % 42.1 % (20.0-40.0); MEAN CELL VOLUME 74.1 fL (81.0-99.0); MEAN CORPUSCULAR HEMOGLOBIN 24.1 pg (27.0-31.0); MEAN CORPUSCULAR HGB CONC 32.6 g/dL (33.0-37.0); MEAN PLATELET VOLUME 7.7 fL (7.2-11.7); MONO # 0.7 K/uL (0.0-0.8); MONO % 8.1 % (0.0-10.0); NRBC % 0.1 % (0.0-2.0); RED CELL DISTRIBUTION WIDTH 14.8 % (11.5-14.5); WHITE BLOOD COUNT 8.1 K/uL (4.8-10.8)
[2017-02-07] MEDS ORDERED: Sodium Chloride 0.9% 1,000 ML ONE (02:43)
[2017-02-07 02:51] LABS: ALB/GLOB RATIO 1.2 (1.0-2.1); ALKALINE PHOSPHATASE 74 U/L (38-126); ALT/SGPT 30 U/L (9-52); AST/SGOT 21 U/L (14-36); BILIRUBIN,TOTAL 0.2 mg/dL (0.2-1.3); BLOOD UREA NITROGEN 19 mg/dL (7-17); CALCIUM 9.2 mg/dl (8.6-10.4); CARBON DIOXIDE 26 mmol/L (22-30); CHLORIDE 105 mmol/L (98-107); GFR AFRICAN-AMERICAN > 60; GLUCOSE,RANDOM 108 mg/dL (65-105); POTASSIUM 3.7 mmol/L (3.6-5.2); SODIUM 143 mmol/L (132-148); TOTAL PROTEIN 6.6 g/dL (6.3-8.3)
[2017-02-07] MEDS ORDERED: Tramadol 25 mg ONE (03:04)
[2017-02-07] MEDS ORDERED: Tramadol 25 mg PO STA (03:06)
[2017-02-07 03:55] VITALS: BP 141/94; PULSE 58; TEMP 97.7
[2017-02-07 04:26] VITALS: O2SAT 98
--- NOTE | 2017-02-07 08:28 | RAD ---
PROCEDURE: Radiographs of the chest and abdomen (obstructive series) HISTORY: abd pain COMPARISON: No prior. TECHNIQUE: AP radiograph of the chest, with upright and supine radiographs of the abdomen. FINDINGS: CHEST: Lungs: Clear. Cardiovascular: Normal size heart. No pulmonary vascular congestion. Pleura: No pleural fluid. No pneumothorax. Other findings: None. ABDOMEN AND PELVIS: Bowel: Unremarkable bowel gas pattern moderate right stool retention. No evidence of mechanical obstruction. Free air: None. Bones: Pubic osteitis condensans Other findings: Cholecystectomy clips and right hemipelvic IMPRESSION: Unremarkable radiographs of chest and abdomen. No evidence of mechanical bowel obstruction.
== END 2017-02-07 04:41 | disposition home or self-care (01) ==
LOC: C.ER 01:07
DX: K59.00 Constipation, unspecified (principal); R10.13 Epigastric pain

== ENCOUNTER 2017-02-27 23:04 | Emergency (ER) | payer OTHER ==
[2017-02-27 23:04] VITALS: BMI 34.7
[2017-02-27 23:48] VITALS: O2SAT 100
[2017-02-28] MEDS ORDERED: Aspirin 325 mg EC Tablets PO STA (00:01)
--- NOTE | 2017-02-28 00:01 | C.PDOC ---
History Of Present Illness Patient presents with some discomfort under her right breast , which then moved to her left breast and across her abdomen. No f/c/n/v. Dull , cramping discomfort, which has since resolved Time Seen by Provider: 02/28/17 00:00 Chief Complaint (Nursing): Chest Pain Past Medical History Reviewed: Historical Data, Nursing Documentation, Vital Signs Vital Signs: Last Vital Signs Temp 98.4 F 02/27/17 23:40 Pulse 74 02/27/17 23:40 Resp 16 02/27/17 23:40 BP 131/83 02/27/17 23:40 Pulse Ox 100 02/28/17 00:13 - Medical History PMH: Anemia, Asthma (never hospitalized), Gastritis, Gall Bladder Disease, HTN, Migraine Denies: Chronic Kidney Disease Surgical History: Cholecystectomy (December 24, 2016), Endoscopy - [facility] Procedures RADICAL EXCIS SKIN LES (08/18/14) Family History: States: No Known Family Hx - Social History Hx Tobacco Use: Yes Hx Alcohol Use: Yes Hx Substance Use: No - Immunization History Hx Tetanus Toxoid Vaccination: No Hx Influenza Vaccination: No Hx Pneumococcal Vaccination: No Review Of Systems Constitutional: Negative for: Fever, Chills Eyes: Negative for: Vision Change ENT: Negative for: Throat Pain Cardiovascular: Positive for: Chest Pain Respiratory: Negative for: Shortness of Breath Gastrointestinal: Negative for: Nausea, Vomiting, Abdominal Pain Musculoskeletal: Negative for: Neck Pain Skin: Negative for: Rash Neurological: Negative for: Weakness Psych: Negative for: Anxiety Physical Exam - Physical Exam Appears: Non-toxic, Toxic Skin: Warm, Dry Head: Normacephalic Eye(s): bilateral: Normal Inspection Oral Mucosa: Moist Neck: Supple Chest: Symmetrical Cardiovascular: Rhythm Regular Respiratory: No Rales, No Rhonchi, No Wheezing Gastrointestinal/Abdominal: Bowel Sounds (tympanic to percussion), Soft, No Tenderness, Distention (mild) Back: No CVA Tenderness Extremity: Normal ROM Extremity: Bilateral: Atraumatic Pulses: Left Dorsalis Pedis: Normal, Right Dorsalis Pedis: Normal Neurological/Psych: Oriented x3, Normal Speech, Normal Cognition Gait: Steady ED Course And Treatment - Laboratory Results Result Diagrams: 02/28/17 00:31 02/28/17 00:31 ECG: Interpreted By Me, Viewed By Me ECG Rhythm: Sinus Rhythm (74), 1st Degree HB, Nonspecific Changes O2 Sat by Pulse Oximetry: 100 Pulse Ox Interpretation: Normal Medical Decision Making Medical Decision Making: I considered the following diagnoses: acute coronary syndrome, pulmonary embolism, lower respiratory infection, aortic dissection/aneurysm, pneumothorax , pericarditis, esophagitis/GERD, zoster and esophageal rupture but found them to be unlikely based on the history, physical exam, and diagnostics. My conclusions regarding the unlikely diagnoses were based on: the absence of significant EKG abnormalities, the lack of suggestive x-ray findings, the absence of significant abnormalities on cardiac monitoring, the absence of asymmetric pulses> patient feels fine and wants to go home Upon provider reevaluation patient is feeling better, is medically stable, and requires no further treatment in the ED at this time. Patient will be discharged home . Counseling was provided and all questions were answered regarding diagnosis and need for follow up with dr hopkins. There is agreement to discharge plan. Return if symptoms persist or worsen. Disposition Counseled Patient/Family Regarding: Studies Performed, Diagnosis, Need For Followup - Disposition Referrals: Yakov Hopkins MD [Medical Doctor] - Disposition: HOME/ ROUTINE Disposition Time: 01:16 Condition: FAIR Instructions: Abdominal Pain (ED), Gas and Bloating (ED), Noncardiac Chest Pain (ED) Forms: [facility] (Thai) - Clinical Impression Clinical Impression: Abdominal pain, Atypical chest pain
[2017-02-28] MEDS ORDERED: Aspirin 325 mg EC Tablets PO ONE (00:25)
[2017-02-28 00:34] LABS: BASO % 0.3 % (0.0-2.0); EOS # 0.1 K/uL (0.0-0.7); EOS % 0.9 % (0.0-4.0); HEMATOCRIT 34.1 % (34.0-47.0); LYMPH # 1.1 K/uL (1.0-4.3); LYMPH % 13.9 % (20.0-40.0); MEAN CELL VOLUME 74.1 fL (81.0-99.0); MEAN CORPUSCULAR HEMOGLOBIN 23.9 pg (27.0-31.0); MEAN CORPUSCULAR HGB CONC 32.3 g/dL (33.0-37.0); MEAN PLATELET VOLUME 7.8 fL (7.2-11.7); MONO # 0.2 K/uL (0.0-0.8); MONO % 2.6 % (0.0-10.0); RED CELL DISTRIBUTION WIDTH 15.3 % (11.5-14.5); WHITE BLOOD COUNT 7.9 K/uL (4.8-10.8)
[2017-02-28 00:44] LABS: INR 1.1
[2017-02-28 00:45] LABS: CHLORIDE 102 mmol/L (98-107); SODIUM 137 mmol/L (132-148)
[2017-02-28 00:47] LABS: GFR AFRICAN-AMERICAN > 60
[2017-02-28 00:48] LABS: ALB/GLOB RATIO 0.9 (1.0-2.1); ALKALINE PHOSPHATASE 76 U/L (38-126); ALT/SGPT 25 U/L (9-52); AST/SGOT 27 U/L (14-36); BILIRUBIN,TOTAL 0.7 mg/dL (0.2-1.3); BLOOD UREA NITROGEN 15 mg/dL (7-17); CARBON DIOXIDE 23 mmol/L (22-30); GLUCOSE,RANDOM 138 mg/dL (65-105); TOTAL PROTEIN 8.7 g/dL (6.3-8.3)
[2017-02-28 00:49] LABS: CALCIUM 9.3 mg/dl (8.6-10.4)
[2017-02-28 01:02] LABS: POTASSIUM 4.9 mmol/L (3.6-5.2)
[2017-02-28 01:07] LABS: URINE BACTERIA RARE (<OCC); URINE BILIRUBIN NEGATIVE (NEGATIVE); URINE BLOOD 1+ (NEGATIVE); URINE COLOR Straw (YELLOW); URINE GLUCOSE (UA) NORMAL (Normal); URINE KETONE NEGATIVE (NEGATIVE); URINE LEUKOCYTE ESTERASE NEG Leu/uL (Negative); URINE PROTEIN NEGATIVE (NEGATIVE); URINE UROBILINOGEN NORMAL mg/dL (0.2-1.0); WBC URINE < 1 /hpf (0-5)
[2017-02-28 01:36] VITALS: BP 117/84; PULSE 77; RESP 20; TEMP 97.9
--- NOTE | 2017-02-28 12:22 | CARD ---
APPROVED REPORT EKG Measurement Heart [id number] AL [id number] [id number] <Conclusion> Sinus rhythm Normal ECG
== END 2017-02-28 01:30 | disposition home or self-care (01) ==
LOC: C.ER 23:04
DX: R07.89 Other chest pain (principal); R10.9 Unspecified abdominal pain; I10 Essential (primary) hypertension; F17.210 Nicotine dependence, cigarettes, uncomplicated

== ENCOUNTER 2017-04-29 20:29 | Emergency (ER) | payer OTHER ==
[2017-04-29 20:30] VITALS: BMI 34.7
[2017-04-29 20:42] VITALS: O2SAT 100
[2017-04-29 21:02] VITALS: RESP 18
[2017-04-29 21:15] LABS: BASO % 0.5 % (0.0-2.0); EOS # 0.2 K/uL (0.0-0.7); EOS % 2.8 % (0.0-4.0); HEMATOCRIT 32.5 % (34.0-47.0); LYMPH # 3.5 K/uL (1.0-4.3); LYMPH % 43.6 % (20.0-40.0); MEAN CELL VOLUME 74.4 fL (81.0-99.0); MEAN CORPUSCULAR HEMOGLOBIN 23.7 pg (27.0-31.0); MEAN CORPUSCULAR HGB CONC 31.8 g/dL (33.0-37.0); MEAN PLATELET VOLUME 7.3 fL (7.2-11.7); MONO # 0.9 K/uL (0.0-0.8); MONO % 11.3 % (0.0-10.0); RED CELL DISTRIBUTION WIDTH 15.6 % (11.5-14.5)
[2017-04-29 21:27] LABS: ALB/GLOB RATIO 1.3 (1.0-2.1); ALKALINE PHOSPHATASE 83 U/L (38-126); ALT/SGPT 35 U/L (9-52); AST/SGOT 19 U/L (14-36); BILIRUBIN,TOTAL 0.3 mg/dL (0.2-1.3); BLOOD UREA NITROGEN 13 mg/dL (7-17); CALCIUM 8.4 mg/dl (8.6-10.4); CARBON DIOXIDE 31 mmol/L (22-30); CHLORIDE 104 mmol/L (98-107); GFR AFRICAN-AMERICAN > 60; GLUCOSE,RANDOM 92 mg/dL (65-105); POTASSIUM 3.6 mmol/L (3.6-5.2); SODIUM 141 mmol/L (132-148)
--- NOTE | 2017-04-29 21:56 | C.PDOC ---
Time Seen by Provider: 04/29/17 20:57 Chief Complaint (Nursing): Cough, Cold, Congestion History Per: Patient Onset/Duration Of Symptoms: Days (2) Current Symptoms Are (Timing): Still Present Location Of Pain: Other (left lower chest) Associated Symptoms: Cough Severity: Moderate Recent travel outside of the [place]: No Additional History Per: Prior Records Past Medical History Reviewed: Historical Data, Nursing Documentation, Vital Signs Vital Signs: Last Vital Signs Temp 97.9 F 04/29/17 20:53 Pulse 83 04/29/17 20:53 Resp 18 04/29/17 20:53 BP 124/80 04/29/17 20:53 Pulse Ox 100 04/29/17 20:53 - Medical History PMH: Anemia, Arthritis, Asthma, Gastritis, HTN, Migraine Other PMH: Hiatal hernia Surgical History: Cholecystectomy, Endoscopy - [facility] Procedures RADICAL EXCIS SKIN LES (08/18/14) Family History: States: Unknown Family Hx - Social History Hx Tobacco Use: Yes Hx Alcohol Use: Yes Hx Substance Use: No - Immunization History Hx Tetanus Toxoid Vaccination: No Hx Influenza Vaccination: No Hx Pneumococcal Vaccination: No Review Of Systems Except As Marked, All Systems Reviewed And Found Negative. Constitutional: Negative for: Fever, Weakness Cardiovascular: Positive for: Chest Pain Respiratory: Positive for: Cough. Negative for: Shortness of Breath, Hemoptysis Gastrointestinal: Negative for: Vomiting Genitourinary: Negative for: Dysuria Musculoskeletal: Negative for: Neck Pain, Leg Pain Skin: Negative for: Rash Neurological: Negative for: Weakness, Numbness Physical Exam - Physical Exam Appears: Non-toxic, No Acute Distress Skin: Normal Color, Warm, Dry, No Rash Head: Atraumatic, Normacephalic Eye(s): bilateral: PERRL, EOMI Neck: Normal ROM, Supple Chest: Symmetrical, No Deformity, Tenderness (left lower), No Subcutaneous Emphysema Cardiovascular: Rhythm Regular Respiratory: Normal Breath Sounds, No Accessory Muscle Use Gastrointestinal/Abdominal: Soft, No Tenderness Back: No CVA Tenderness Extremity: Normal ROM, No Pedal Edema, No Calf Tenderness Neurological/Psych: Oriented x3, Normal Motor, Normal Sensation ED Course And Treatment - Laboratory Results Result Diagrams: 04/29/17 21:12 04/29/17 21:12 Lab Interpretation: No Acute Changes ECG: Interpreted By Me, Viewed By Me ECG Rhythm: Sinus Rhythm, 1st Degree HB, Nonspecific Changes ECG Interpretation: No Acute Changes Rate From EC O2 Sat by Pulse Oximetry: 100 Pulse Ox Interpretation: Normal - Radiology CXR: Interpreted by Me, Viewed By Me CXR Interpretation: Yes: No Acute Disease Reassessment Condition: Improved Disposition Counseled Patient/Family Regarding: Studies Performed, Diagnosis, Need For Followup, Rx Given - Disposition Referrals: Yakov Powell MD [Medical Doctor] - Disposition: HOME/ ROUTINE Disposition Time: 21:56 Condition: IMPROVED Additional Instructions: Follow up with your doctor. Return to the ER if you develop fever, shortness of breath, dizziness, worsening of symptoms or if you have any other concerns. Prescriptions: Benzonatate 200 mg PO TID PRN #15 capsule PRN Reason: Cough Instructions: Acute Cough (ED), Noncardiac Chest Pain (ED) Forms: [facility] (Kyrgyz), General Discharge Instructions - Clinical Impression Clinical Impression: Cough, Non-cardiac chest pain
[2017-04-29 22:05] VITALS: BP 137/90; PULSE 67; TEMP 98.2
--- NOTE | 2017-04-30 08:55 | RAD ---
HISTORY: COMPARISON: 02/07/2017. TECHNIQUE: Chest PA and lateral FINDINGS: LINES AND TUBES: None. LUNG AND PLEURA: The lungs are hyperinflated and there is peribronchial thickening with chronic changes in both lungs. HEART AND MEDIASTINUM: The heart is not enlarged. The hilar and mediastinal contours are within normal limits. SKELETAL STRUCTURES: The bony structures are within normal limits for the patient's age. VISUALIZED UPPER ABDOMEN: Normal. OTHER FINDINGS: None. IMPRESSION: No active pulmonary disease. COPD.
== END 2017-04-29 22:09 | disposition home or self-care (01) ==
LOC: C.ER 20:29
DX: R05 Cough (principal); R07.89 Other chest pain; I10 Essential (primary) hypertension; Z87.891 Personal history of nicotine dependence

== ENCOUNTER 2017-06-14 20:14 | Inpatient (IN) | payer OTHER ==
[2017-06-14 20:14] VITALS: BMI 34.7
--- NOTE | 2017-06-14 21:10 | C.PDOC ---
History Of Present Illness Patient presents to the ER with a complaint of left leg weakness and numbness since approximately 11:00, associated with left arm numbness and weakness that began a few hours ago. Denies slurred speech and changes in vision. Time Seen by Provider: 06/14/17 21:09 Chief Complaint (Nursing): Lower Extremity Problem/Injury History Per: Patient History/Exam Limitations: no limitations Onset/Duration Of Symptoms: Hrs Current Symptoms Are (Timing): Still Present Severity: Moderate Pain Scale Rating Of: 4 Recent travel outside of the [place]: No Past Medical History Reviewed: Historical Data, Nursing Documentation, Vital Signs Vital Signs: Last Vital Signs Temp 97.9 F 06/14/17 20:19 Pulse 64 06/14/17 20:19 Resp 18 06/14/17 20:19 BP 141/92 H 06/14/17 20: Pulse Ox 99 06/14/17 23:03 - Medical History PMH: Anemia, Arthritis, Asthma, Diverticulitis, Fractures, Gastritis, HTN, Migraine Surgical History: Cholecystectomy, Endoscopy - [facility] Procedures RADICAL EXCIS SKIN LES (08/18/14) Family History: States: No Known Family Hx - Social History Hx Tobacco Use: Yes Hx Alcohol Use: Yes Hx Substance Use: No - Immunization History Hx Tetanus Toxoid Vaccination: No Hx Influenza Vaccination: No Hx Pneumococcal Vaccination: No Review Of Systems Constitutional: Negative for: Fever, Chills Eyes: Negative for: Vision Change Cardiovascular: Negative for: Chest Pain Respiratory: Negative for: Shortness of Breath Gastrointestinal: Negative for: Nausea, Vomiting Neurological: Positive for: Weakness, Numbness. Negative for: Change in Speech Physical Exam - Physical Exam Appears: Non-toxic Skin: Warm, Dry Head: Normacephalic Eye(s): bilateral: Normal Inspection, PERRL, EOMI Oral Mucosa: Moist Neck: Trachea Midline, Supple Chest: Symmetrical, No Tenderness Cardiovascular: Rhythm Regular Respiratory: No Rales, No Rhonchi, No Wheezing Gastrointestinal/Abdominal: Soft, No Tenderness Back: Normal Inspection Extremity: Normal ROM, No Tenderness, No Calf Tenderness Extremity: Bilateral: Atraumatic, Normal Color And Temperature, Normal ROM Pulses: Left Dorsalis Pedis: Normal, Right Dorsalis Pedis: Normal Neurological/Psych: Oriented x3, Normal Speech, Normal Cognition, Normal Cranial Nerves, Normal Motor, Normal Sensation, Normal Reflexes Gait: Steady ED Course And Treatment - Laboratory Results Result Diagrams: 06/14/17 21:39 06/14/17 21:39 ECG: Interpreted By Me, Viewed By Me ECG Rhythm: Sinus Rhythm (94), Nonspecific Changes O2 Sat by Pulse Oximetry: 99 (room air) Pulse Ox Interpretation: Normal - Radiology CXR: Interpreted by Me, Viewed By Me CXR Interpretation: No: Infiltrates, Fracture, Pnemothorax Progress Note: Blood work, EKG, CXR, and CT head ordered. Code stroke protocol initiated. Critical Care Time - Critical Care Note Total Time (in mins): 30 Documented critical care: time excludes all time spent performing seperately billable procedures. NIHSS Stroke Scale - Date/Time Evaluation Performed Date Performed: 06/14/17 Time Performed: 21:10 When Was NIHSS Performed: Baseline - How Severe is the Stoke Level of Consciousness: 0=Alert LOC to Questions: 0=Both comments correct LOC to commands: 0=Obeys both correctly Best Gaze: 0=Normal Visual: 0=No visual loss Facial: 0=Normal Motor Arm - Left: 0=No drift Motor Arm - Right: 0=No drift Motor Leg - Left: 0=No drift Motor Leg - Right: 0=No drift Limb Ataxia: 0=Absent Sensory: 0=Normal Best Language: 0=No aphasia Dysarthia: 0=Normal articulation Extinction & Inattention (Neglect): 0=Normal, no object Score: 0 Severity Of Stroke: 0= No Stroke Disposition Discussed With : Marcella Powell Comment: accepted the pt on his service and took over the care at 10:50 PM Counseled Patient/Family Regarding: Studies Performed, Diagnosis - Disposition Referrals: Yakov Powell MD [Primary Care Provider] - Disposition: HOSPITALIZED Disposition Time: 21:10 Condition: FAIR Forms: [facility] ([place]ian) - POA Present On Arrival: Poor Glycemic Control - Clinical Impression Clinical Impression: TIA (transient ischemic attack), Paresthesias - Scribe Statement The provider has reviewed the documentation as recorded by the Scribabdiel Carlin All medical record entries made by the Scribe were at my direction and personally dictated by me. I have reviewed the chart and agree that the record accurately reflects my personal performance of the history, physical exam, medical decision making, and the department course for this patient. I have also personally directed, reviewed, and agree with the discharge instructions and disposition.
[2017-06-14 21:44] LABS: BASO % 0.6 % (0.0-2.0); EOS # 0.2 K/uL (0.0-0.7); EOS % 3.7 % (0.0-4.0); HEMOGLOBIN 11.5 g/dL (11.0-16.0); LYMPH # 2.7 K/uL (1.0-4.3); LYMPH % 51.6 % (20.0-40.0); MEAN CELL VOLUME 74.6 fL (81.0-99.0); MEAN CORPUSCULAR HEMOGLOBIN 24.3 pg (27.0-31.0); MEAN CORPUSCULAR HGB CONC 32.5 g/dL (33.0-37.0); MEAN PLATELET VOLUME 7.3 fL (7.2-11.7); MONO # 0.6 K/uL (0.0-0.8); MONO % 11.9 % (0.0-10.0); NEUT # 1.7 K/uL (1.8-7.0); NEUT % 32.2 % (50.0-75.0); NRBC % 0.2 % (0.0-2.0); RBC 4.73 Mil/uL (3.80-5.20); RED CELL DISTRIBUTION WIDTH 15.3 % (11.5-14.5); WHITE BLOOD COUNT 5.3 K/uL (4.8-10.8)
[2017-06-14 21:54] LABS: INR 1.2; PROTHROMBIN TIME 13.2 SECONDS (9.7-12.2)
--- NOTE | 2017-06-14 21:55 | CT ---
EXAM: CT Head Without Intravenous Contrast CLINICAL HISTORY: 52 years old, female; Signs and symptoms; Weakness, extremity; Left; Additional info: Code stroke, numbness left side TECHNIQUE: Axial computed tomography images of the head/brain without intravenous contrast. All CT scans at this facility use one or more dose reduction techniques, viz.: automated exposure control; ma/kV adjustment per patient size (including targeted exams where dose is matched to indication; i.e. head); or iterative reconstruction technique. Coronal and sagittal reformatted images were created and reviewed. COMPARISON: No relevant prior studies available. FINDINGS: Brain: No intracranial hemorrhage. 0.6 x 0.4 x 0.7 cm dural calcification vs calcified meningioma along left parietal region. No definite edema. Ventricles: No hydrocephalus. Bones/joints: No acute fracture. Soft tissues: Unremarkable. Sinuses: No acute sinusitis. Mastoid air cells: No mastoid effusion. Orbits: Unremarkable as visualized. IMPRESSION: 1. No definite territorial infarction. Acute infarction may be CT occult within first 24 hours. If focal deficit persists, consider followup CT or MRI for further evaluation. 2. Incidental/non-acute findings are described above.
[2017-06-14 21:57] LABS: ALBUMIN 4.4 g/dL (3.5-5.0); ALT/SGPT 27 U/L (9-52); AST/SGOT 24 U/L (14-36); BLOOD UREA NITROGEN 10 mg/dL (7-17); CALCIUM 9.6 mg/dl (8.6-10.4); GFR AFRICAN-AMERICAN > 60; GFR NON-AFRICAN AMERICAN > 60; HDL CHOLESTEROL 40 mg/dL (30-70)
[2017-06-14 22:07] LABS: LDL CHOLESTEROL 101 mg/dL (0-129)
[2017-06-14] MEDS ORDERED: BENZONATATE 200 MG PO PRN (23:51)
[2017-06-15] MEDS ORDERED: Aluminum Hydroxide/Magnesium Hydroxide Susp (30 mL) PO ONE (02:02)
[2017-06-15] MEDS: Oxycodone/Acetaminophen 5/325 mg Tab PO PRN ×4 (02:36→21:48)
[2017-06-15 08:57] LABS: HDL CHOLESTEROL 35 mg/dL (30-70)
[2017-06-15 09:08] LABS: LDL CHOLESTEROL 96 mg/dL (0-129)
[2017-06-15] MEDS: Enoxaparin 40 mg Syringe SC SCH (09:25)
--- NOTE | 2017-06-15 12:07 | RAD ---
HISTORY: numbness COMPARISON: 04/29/2017 FINDINGS: LUNGS: No active pulmonary disease. PLEURA: No significant pleural effusion identified, no pneumothorax apparent. CARDIOVASCULAR: Normal. OSSEOUS STRUCTURES: No significant abnormalities. VISUALIZED UPPER ABDOMEN: Normal. OTHER FINDINGS: None. IMPRESSION: No active disease.
[2017-06-15] MEDS: Alum-Mag Hydrox-Simethicone Susp (30 mL) PO PRN (12:42)
--- NOTE | 2017-06-15 14:32 | CT ---
PROCEDURE: CT HEAD WITHOUT CONTRAST. HISTORY: follow up CT COMPARISON: 06/14/2017 TECHNIQUE: Axial computed tomography images were obtained through the head/brain without intravenous contrast. Radiation dose: Total exam DLP = 1013.46 mGy-cm. This CT exam was performed using one or more of the following dose reduction techniques: Automated exposure control, adjustment of the mA and/or kV according to patient size, and/or use of iterative reconstruction technique. FINDINGS: HEMORRHAGE: No intracranial hemorrhage. BRAIN: No mass effect or edema. No atrophy or chronic microvascular ischemic changes. Nodular calcification at left vertex, extra-axial. Possible small calcified meningioma. VENTRICLES: Unremarkable. No hydrocephalus. CALVARIUM: Unremarkable. PARANASAL SINUSES: Unremarkable as visualized. No significant inflammatory changes. MASTOID AIR CELLS: Unremarkable as visualized. No inflammatory changes. OTHER FINDINGS: None. IMPRESSION: Normal CT of the Head. No evidence of acute infarct. Nodular calcification at left vertex, extra-axial. Possible small calcified meningioma. No change.
--- NOTE | 2017-06-15 16:01 | CP.PCM.CON ---
History of Present Illness - History of Present Illness History of Present Illness: Mrs. Yusuf is a 52-year-old woman with a past medical history of HTN, who developed left leg and arm weakness yesterday as she was walking. She did not have significant enough weakness to be noticable objectively when she came to the ED, and her NIHSS was 0. Currently, she continues to complain of left leg "heaviness". She is able to maintain the leg antigravity for more than [address] scan of the head was normal. She is extremely claustrophobic and refused MRI. Review of Systems - Review of Systems All systems: reviewed and no additional remarkable complaints except Past Patient History - Infectious Disease Hx of Infectious Diseases: None - Past Medical History & Family History Past Medical History?: Yes - Past Social History Smoking Status: Former Smoker - CARDIAC Hx Cardiac Disorders: Yes Hx Hypertension: Yes - PULMONARY Hx Respiratory Disorders: Yes Hx Asthma: Yes - NEUROLOGICAL Hx Neurological Disorder: Yes Hx Migraine: Yes - HEENT Hx HEENT Problems: No - RENAL Hx Chronic Kidney Disease: No - ENDOCRINE/METABOLIC Hx Endocrine Disorders: No - HEMATOLOGICAL/ONCOLOGICAL Hx Blood Disorders: Yes Hx Anemia: Yes - INTEGUMENTARY Hx Dermatological Problems: No - MUSCULOSKELETAL/RHEUMATOLOGICAL Hx Falls: No - GASTROINTESTINAL Hx Gastrointestinal Disorders: Yes Hx Diverticulitis: Yes Hx Gastritis: Yes Hx Gastroesophageal Reflux: Yes - GENITOURINARY/GYNECOLOGICAL Hx Genitourinary Disorders: No - PSYCHIATRIC Hx Substance Use: No - SURGICAL HISTORY Hx Surgeries: Yes Hx Cholecystectomy: Yes Hx Open Reduction Internal Fixation: Yes (R Ankle in 2007) - ANESTHESIA Hx Anesthesia: Yes Hx Anesthesia Reactions: No Hx Malignant Hyperthermia: No Has any member of the family had a problem w/ anesthesia?: No Meds Allergies/Adverse Reactions: Allergies Allergy/AdvReac Type Severity Reaction Status Date / Time No Known Allergies Allergy Verified 06/14/17 20:19 - Medications Medications: Current Medications Al Hydrox/Mg Hydrox/Simethicone (Maalox Plus 30 Ml) 30 ml PO Q6H PRN PRN Reason: Indigestion / Heartburn Last Admin: 06/15/17 12:42 Dose: 30 ml Aspirin (Aspirin Chewable) 81 mg PO DAILY [facility] Last Admin: 06/15/17 09:25 Dose: 81 mg Benzonatate (Tessalon Perles) 200 mg PO TID PRN PRN Reason: Cough Enoxaparin Sodium (Lovenox) 40 mg SC DAILY [facility] Last Admin: 06/15/17 09:25 Dose: 40 mg Losartan Potassium (Cozaar) 100 mg PO DAILY [facility] Last Admin: 06/15/17 09:42 Dose: Not Given Oxycodone/Acetaminophen (Percocet 5/325 Mg Tab) 1 tab PO Q4H PRN PRN Reason: pain Stop: 06/17/17 23:52 Last Admin: 06/15/17 11:55 Dose: 1 tab Pneumococcal Polyvalent Vaccine (Pneumovax 23 Vaccine) 0.5 ml IM .ONCE ONE Stop: 06/17/17 14:01 Rosuvastatin Calcium (Crestor) 10 mg PO [facility] Physical Exam - Constitutional Appears: Well - Eye Exam Eye Exam: EOMI, Normal appearance, PERRL - ENT Exam ENT Exam: Mucous Membranes Moist, Normal Exam - Neck Exam Neck exam: Positive for: Normal Inspection - Respiratory Exam Respiratory Exam: Clear to Auscultation Bilateral, NORMAL BREATHING PATTERN - Cardiovascular Exam Cardiovascular Exam: REGULAR RHYTHM, +S1, +S2 - GI/Abdominal Exam GI & Abdominal Exam: Normal Bowel Sounds, Soft. absent: Tenderness - Extremities Exam Extremities exam: Positive for: normal inspection - Neurological Exam Neurological exam: Alert, CN II-XII Intact, Normal Gait, Oriented x3, Reflexes Normal Additional comments: NIHSS = 0 - Psychiatric Exam Psychiatric exam: Normal Affect, Normal Mood Results - Vital Signs Recent Vital Signs: Last Vital Signs Temp 97.8 F 06/15/17 13:17 Pulse 74 06/15/17 13:17 Resp 20 06/15/17 13:17 BP 116/77 06/15/17 13:17 Pulse Ox 100 06/15/17 13:17 - Labs Result Diagrams: 06/14/17 21:39 06/14/17 21:39 Labs: Laboratory Results - last 24 hr 06/14/17 06/14/17 06/14/17 21:16 21:39 21:39 WBC 5.3 RBC 4.73 Hgb 11.5 Hct 35.3 MCV 74.6 L MCH 24.3 L MCHC 32.5 L RDW 15.3 H Plt Count 347 MPV 7.3 Neut % (Auto) 32.2 L Lymph % (Auto) 51.6 H [place] % (Auto) 11.9 H Eos % (Auto) 3.7 Baso % (Auto) 0.6 Neut # 1.7 L Lymph # 2.7 [place] # 0.6 Eos # 0.2 Baso # 0.0 PT 13.2 H INR 1.2 APTT 34 Sodium Potassium Chloride Carbon Dioxide Anion Gap BUN Creatinine Est GFR ( Amer) Est GFR (Non-Af Amer) POC Glucose (mg/dL) 93 Random Glucose Hemoglobin A1c Calcium Total Bilirubin AST ALT Alkaline Phosphatase Troponin I Total Protein Albumin Globulin Albumin/Globulin Ratio Triglycerides Cholesterol LDL Cholesterol Direct HDL Cholesterol Blood Type Antibody Screen 06/14/17 06/14/17 06/14/17 21:39 21:39 21:43 WBC RBC Hgb Hct MCV MCH MCHC RDW Plt Count MPV Neut % (Auto) Lymph % (Auto) [place] % (Auto) Eos % (Auto) Baso % (Auto) Neut # Lymph # [place] # Eos # Baso # PT INR APTT Sodium 141 Potassium 4.6 Chloride 105 Carbon Dioxide 28 Anion Gap 12 BUN 10 Creatinine 0.9 Est GFR ( Amer) > 60 Est GFR (Non-Af Amer) > 60 POC Glucose (mg/dL) Random Glucose 109 H Hemoglobin A1c 6.3 Calcium 9.6 Total Bilirubin 0.4 AST 24 ALT 27 Alkaline Phosphatase 105 Troponin I < 0.0120 Total Protein 8.6 H Albumin 4.4 Globulin 4.2 H Albumin/Globulin Ratio 1.0 Triglycerides 133 D Cholesterol 188 LDL Cholesterol Direct 101 HDL Cholesterol 40 Blood Type O POSITIVE Antibody Screen Negative 06/15/17 06/15/17 06/15/17 06:15 08:18 11:15 WBC RBC Hgb Hct MCV MCH MCHC RDW Plt Count MPV Neut % (Auto) Lymph % (Auto) [place] % (Auto) Eos % (Auto) Baso % (Auto) Neut # Lymph # [place] # Eos # Baso # PT INR APTT Sodium Potassium Chloride Carbon Dioxide Anion Gap BUN Creatinine Est GFR ( Amer) Est GFR (Non-Af Amer) POC Glucose (mg/dL) 99 96 Random Glucose Hemoglobin A1c Calcium Total Bilirubin AST ALT Alkaline Phosphatase Troponin I Total Protein Albumin Globulin Albumin/Globulin Ratio Triglycerides 86 D Cholesterol 173 LDL Cholesterol Direct 96 HDL Cholesterol 35 Blood Type Antibody Screen Assessment & Plan (1) Paresthesias Assessment and Plan: She continues to have symptoms and stated that she has been told that she has radiculopathy. A CT scan of the cervical spine may be done to evaluate. This can be done with we obtain a CTA of the head/neck. Status: Acute (2) TIA (transient ischemic attack) Assessment and Plan: Will rule out any large vessel stenosis with a CTA of the head/neck. Ideally, an MRI/MRA would be done, but the patient is refusing. I also recommend the followin. Telemetry 2. Echocardiogram with bubble study 3. Continue aspirin 81 mg daily 4. PT/OT eval 5. DVT Px 6. Lipid panel The patient may follow up with outpatient neurology, if clinically stable and cleared by PT. Thank you. Status: Acute Priority: High
[2017-06-15] MEDS ORDERED: Iodixanol 320 MG/ML 100 ML BOTTLE IV ONE (20:59)
[2017-06-16] MEDS: Alum-Mag Hydrox-Simethicone Susp (30 mL) PO PRN ×2 (00:13→13:27)
--- NOTE | 2017-06-16 00:22 | CT ---
EXAM: CT Angiography Head With Intravenous Contrast CT Angiography Neck With Intravenous Contrast CLINICAL HISTORY: 52 years old, female; Signs and symptoms; Weakness; Additional info: Left side weakness/paresthesia TECHNIQUE: Axial computed tomographic angiography images of the head and neck with intravenous contrast using CT angiography protocol. All CT scans at this facility use one or more dose reduction techniques, viz.: automated exposure control; ma/kV adjustment per patient size (including targeted exams where dose is matched to indication; i.e. head); or iterative reconstruction technique. MIP reconstructed images were created and reviewed. Coronal and sagittal reformatted images were created and reviewed. CONTRAST: 100 mL of [id number] administered intravenously. COMPARISON: CT - HEAD W/O CONTRAST 2017-06-15 14:11 FINDINGS: HEAD: Right anterior cerebral artery: No occlusion or significant stenosis. No aneurysm. Right middle cerebral artery: No occlusion or significant stenosis. No aneurysm. Right posterior cerebral artery: No occlusion or significant stenosis. No aneurysm. Left anterior cerebral artery: No occlusion or significant stenosis. No aneurysm. Left middle cerebral artery: No occlusion or significant stenosis. No aneurysm. Left posterior cerebral artery: No occlusion or significant stenosis. No aneurysm. Basilar artery: No occlusion or significant stenosis. No aneurysm. NECK: Right common carotid artery: No significant stenosis. No dissection or occlusion. Right internal carotid artery: No significant stenosis. No dissection or occlusion. Right external carotid artery: No occlusion. Right vertebral artery: No significant stenosis. No dissection or occlusion. Left common carotid artery: No significant stenosis. No dissection or occlusion. Left internal carotid artery: No significant stenosis. No dissection or occlusion. Left external carotid artery: No occlusion. Left vertebral artery: No significant stenosis. No dissection or occlusion. Thyroid: Enlarged thyroid gland. HEAD and NECK: Bones/joints: Diffuse cervical spinal degenerative changes with reversal of the normal cervical lordosis. No acute fracture. No dislocation. Soft tissues: Unremarkable as visualized. No mass. CAROTID STENOSIS REFERENCE USING NASCET CRITERIA: % ICA stenosis = (1 - narrowest ICA diameter/diameter of distal cervical ICA) x 100. Mild - <50% stenosis. Moderate - 50-69% stenosis. Severe - 70-94% stenosis. Near occlusion - 95-99% stenosis. Occluded - 100% stenosis. IMPRESSION: 1. Unremarkable cervical carotid arteries. 2. Patent vertebral arteries. 3. Unremarkable intracranial arteries.
--- NOTE | 2017-06-16 09:10 | CARD ---
APPROVED REPORT EXAM: Two-dimensional and M-mode echocardiogram with Doppler and color Doppler. Other Information Quality : GoodRhythm : INDICATION Chest Pain RISK FACTORS Hypertension M-Mode DIMENSIONS RVDd1.46 (2.1-3.2cm)Left Atrium (MM)3.44 (2.5-4.0cm) IVSd1.37 (0.7-1.1cm)Aortic Root3.40 (2.2-3.7cm) LVDd4.91 (4.0-5.6cm)Aortic Cusp Exc.1.76 (1.5-2.0cm) PWd1.20 (0.7-1.1cm)FS (%) 38 % LVDs3.03 (2.0-3.8cm)LVEF (%)69 (>50%) Mitral Valve MV E Jmrfxkqq77.5cm/sMV A Omgbfsmt40.0cm/sE/A ratio1.1 TDI E/Lateral E'0.0E/Medial E'0.0 Tricuspid Valve TR Peak Lzxcmdnu268di/sTR Peak Gr.[id number] LEFT VENTRICLE The left ventricle is normal size. There is mild concentric left ventricular hypertrophy. Left ventricle systolic function is normal. The Ejection Fraction is 65-70%. There is normal LV segmental wall motion. The left ventricular diastolic function is normal. RIGHT VENTRICLE The right ventricle is normal size. There is normal right ventricular wall thickness. The right ventricular systolic function is normal. ATRIA The left atrium size is normal. The right atrium size is normal. The interatrial septum is intact with no evidence for an atrial septal defect. AORTIC VALVE The aortic valve is normal in structure. No aortic regurgitation is present. There is no aortic valvular stenosis. MITRAL VALVE The mitral valve is normal in structure. There is no evidence of mitral valve prolapse. There is no mitral valve stenosis. There is no mitral valve regurgitation noted. TRICUSPID VALVE The tricuspid valve is normal in structure. There is trace tricuspid regurgitation. Right ventricular systolic pressure is estimated at less than 30 mmHg. There is no pulmonary hypertension. PULMONIC VALVE The pulmonic valve is not well visualized. There is mild pulmonic valvular regurgitation. GREAT VESSELS The aortic root is normal in size. PERICARDIAL EFFUSION There is no significant pericardial effusion. <Conclusion> Left ventricle systolic function is normal. The Ejection Fraction is 65-70%. Hypertensive heart disease. No aortic regurgitation is present. There is no mitral valve regurgitation noted. There is trace tricuspid regurgitation. There is no pulmonary hypertension. There is mild pulmonic valvular regurgitation.
[2017-06-16] MEDS: Fluticasone Nasal 50 mcg/Spray NAS SCH (10:00)
[2017-06-16] MEDS: Enoxaparin 40 mg Syringe SC SCH (10:02)
[2017-06-16] MEDS: Oxycodone/Acetaminophen 5/325 mg Tab PO PRN ×2 (13:28→22:27)
--- NOTE | 2017-06-16 14:35 | CP.PCM.PN ---
Subjective - Date & Time of Evaluation Date of Evaluation: 06/16/17 Time of Evaluation: 14:32 - Subjective Subjective: Ms. lopez was seen and examined at the bedside. She is alert, oriented in all spheres. She denies any headache, dizziness, weakness, but claims of mild paresthesia of the left lower extremity. She has been under a pain physician for a pinched nerve in her cervical spine. She is able to follow simple commands. She also states of inability to pass bowel movement since admission. abdomen is soft, non-tender x 4 quads. There was no untoward events overnight. Objective - Vital Signs/Intake and Output Vital Signs (last 24 hours): Temp Pulse Resp BP Pulse Ox 98.0 F 81 18 111/75 100 06/16/17 07:25 06/16/17 09:00 06/16/17 07:25 06/16/17 07:25 06/16/17 07:25 Intake and Output: 06/16/17 06/16/17 06:59 18:59 Intake Total 600 Balance 600 - Medications Medications: Current Medications Al Hydrox/Mg Hydrox/Simethicone (Maalox Plus 30 Ml) 30 ml PO Q6H PRN PRN Reason: Indigestion / Heartburn Last Admin: 06/16/17 13:27 Dose: 30 ml Aspirin (Aspirin Chewable) 81 mg PO DAILY [facility] Last Admin: 06/16/17 10:02 Dose: 81 mg Benzonatate (Tessalon Perles) 200 mg PO TID PRN PRN Reason: Cough Enoxaparin Sodium (Lovenox) 40 mg SC DAILY [facility] Last Admin: 06/16/17 10:02 Dose: 40 mg Fluticasone Propionate (Flonase) 0 spr JOSS DAILY [facility] Last Admin: 06/16/17 10:00 Dose: 1 spr Losartan Potassium (Cozaar) 100 mg PO DAILY [facility] Last Admin: 06/16/17 10:02 Dose: Not Given Oxycodone/Acetaminophen (Percocet 5/325 Mg Tab) 1 tab PO Q4H PRN PRN Reason: pain Stop: 06/17/17 23:52 Last Admin: 06/16/17 13:28 Dose: 1 tab Pneumococcal Polyvalent Vaccine (Pneumovax 23 Vaccine) 0.5 ml IM .ONCE ONE Stop: 06/17/17 14:01 Rosuvastatin Calcium (Crestor) 10 mg PO HS [facility] Last Admin: 06/15/17 21:48 Dose: 10 mg - Labs Labs: 06/14/17 21:39 06/14/17 21:39 PT 13.2 SECONDS (9.7-12.2) H 06/14/17 21:39 INR 1.2 06/14/17 21:39 APTT 34 SECONDS (21-34) 06/14/17 21:39 - Constitutional Appears: No Acute Distress - Head Exam Head Exam: NORMAL INSPECTION - Neurological Exam Neurological Exam: Alert, Awake, Oriented x3 Neuro motor strength exam: Left Upper Extremity: 5, Right Upper Extremity: 5, Left Lower Extremity: 3, Right Lower Extremity: 5 Additional comments: She is able to follow simple commands with mild weakness of the left leg. Sensation remains intact and symmetrical. Assessment and Plan (1) Paresthesias Assessment & Plan: Case discussed with Dr. Wick, continue all current medical, physical therapies. Recommend to follow up with her pain MD for her C-spine pinched nerve. Recommends CT scan of the cervical spine may be done to evaluate. Status: Acute
--- NOTE | 2017-06-16 21:56 | HP ---
HISTORY OF PRESENT ILLNESS: Ms. Yusuf is a 52-year-old female with chief complaint of weakness of the arm and leg and numbness. Patient came to the hospital for admission with hypertension. PHYSICAL EXAMINATION: GENERAL: The patient awake, alert, oriented. VITAL SIGNS: Temperature 98, pulse 90. HEENT: Within normal limits. NECK: Supple. CHEST: Symmetrical. HEART: Regular. ABDOMEN: Soft. EXTREMITIES: No edema. PLAN: Patient suffers from . Patient on bed rest, supportive care. Marcella Powell MD
--- NOTE | 2017-06-17 06:29 | PN ---
DATE: SUBJECTIVE: Presents comes with numbness in the legs, physical therapy . Marcella Powell MD
[2017-06-17 08:39] VITALS: RESP 18
[2017-06-17] MEDS: Fluticasone Nasal 50 mcg/Spray NAS SCH (09:30)
[2017-06-17] MEDS: Enoxaparin 40 mg Syringe SC SCH (09:30)
--- NOTE | 2017-06-17 09:33 | CP.PCM.PN ---
Subjective - Date & Time of Evaluation Date of Evaluation: 06/17/17 Time of Evaluation: 08:00 - Subjective Subjective: PGY [address] Powell: Patient was seen and examined at bedside this morning. She is alert, awake, and oriented. She denies any headache, dizziness, weakness, but claims of mild weaknes of the left lower extremity. She is still able to walk and ambulate without any issues. She has been under a pain physician for a pinched nerve in her cervical spine. She was requesting to be discharged with percocet although this is not a medications that is given by her pain doctor.She will need to follow up outpatient in regards to pain due her her pinched cervical nerve. Objective - Vital Signs/Intake and Output Vital Signs (last 24 hours): Temp Pulse Resp BP Pulse Ox 97.8 F 86 18 166/70 H 98 06/17/17 08:37 06/17/17 08:37 06/17/17 08:37 06/17/17 08:37 06/17/17 08:37 Intake and Output: 06/17/17 06/17/17 06:59 18:59 Intake Total 450 Balance 450 - Medications Medications: Current Medications Al Hydrox/Mg Hydrox/Simethicone (Maalox Plus 30 Ml) 30 ml PO Q6H PRN PRN Reason: Indigestion / Heartburn Last Admin: 06/16/17 13:27 Dose: 30 ml Aspirin (Aspirin Chewable) 81 mg PO DAILY [facility] Last Admin: 06/16/17 10:02 Dose: 81 mg Benzonatate (Tessalon Perles) 200 mg PO TID PRN PRN Reason: Cough Enoxaparin Sodium (Lovenox) 40 mg SC DAILY [facility] Last Admin: 06/16/17 10:02 Dose: 40 mg Fluticasone Propionate (Flonase) 0 spr JOSS DAILY [facility] Last Admin: 06/16/17 10:00 Dose: 1 spr Losartan Potassium (Cozaar) 100 mg PO DAILY [facility] Last Admin: 06/16/17 10:02 Dose: Not Given Oxycodone/Acetaminophen (Percocet 5/325 Mg Tab) 1 tab PO Q4H PRN PRN Reason: pain Stop: 06/17/17 23:52 Last Admin: 06/16/17 22:27 Dose: 1 tab Pneumococcal Polyvalent Vaccine (Pneumovax 23 Vaccine) 0.5 ml IM .ONCE ONE Stop: 06/17/17 14:01 Rosuvastatin Calcium (Crestor) 10 mg PO HS [facility] Last Admin: 06/16/17 22:25 Dose: 10 mg - Labs Labs: 06/14/17 21:39 06/14/17 21:39 PT 13.2 SECONDS (9.7-12.2) H 06/14/17 21:39 INR 1.2 06/14/17 21:39 APTT 34 SECONDS (21-34) 06/14/17 21:39 - Constitutional Appears: Non-toxic, No Acute Distress - Head Exam Head Exam: ATRAUMATIC, NORMAL INSPECTION - Eye Exam Eye Exam: EOMI, PERRL Pupil Exam: NORMAL ACCOMODATION - ENT Exam ENT Exam: Mucous Membranes Moist - Respiratory Exam Respiratory Exam: Clear to Ausculation Bilateral, NORMAL BREATHING PATTERN. absent: Respiratory Distress - Cardiovascular Exam Cardiovascular Exam: REGULAR RHYTHM, +S1, +S2 - GI/Abdominal Exam GI & Abdominal Exam: Soft, Normal Bowel Sounds. absent: Distended, Firm, Guarding, Tenderness - Back Exam Back Exam: NORMAL INSPECTION. absent: CVA tenderness (L), CVA tenderness (R), paraspinal tenderness - Neurological Exam Neurological Exam: Alert, Awake, CN II-XII Intact, Normal Gait, Oriented x3 Neuro motor strength exam: Left Upper Extremity: 5, Right Upper Extremity: 5, Left Lower Extremity: 5, Right Lower Extremity: 5 Additional comments: NIHSS = 0 - Psychiatric Exam Psychiatric exam: Normal Affect, Normal Mood - Skin Skin Exam: Dry, Intact, Normal Color, Warm Assessment and Plan - Assessment and Plan (Free Text) Assessment: Transient Ischemic Attack Symptoms likely secondary to cervical disc disease Echo Telemetry monitoring ASA 81mg PO daily Dr. Wick (neurology) consulted - stable for DC PT/OT Head CT - Normal CT of the head. No evidence of acute infarct. Nodular calcification at left vertex, extra axial. Possible small calcified meningioma. No change. Head/Neck CTA - unremarkable cervical carotid arteries. Patent vertebral arteries. Unremarkable intracranial arteries. Crestor 10mg PO HS Trig - 86 Chol 173 LDL 96 HDL 35 Cervical disc disease Patient is to follow up with her outpatient pain management docgregg Took to discuss steroid injection Cervical spine CT results given to the patient Percocet 5/325 1 tab PO Q4 prn pain - Patient is not given this by outpatient pain management. It was explained to the patient that she will not be given percocet on discharge. She can take the medications give to her outpatient or take Ibuprofen as needed for pain. Hypertension Controlled Losartan 100mg PO daily Patient is on valsartan outpatient Low sodium diet Impaired glucose tolerance HBA1c - 6.2 Diet and lifestyle modification Prophylaxis Measures: Lovenox 40mg SC daily no GI prohpylasix indicated [place] healthy CCarb diet Patient is stable for discharge home. Patient is to follow up with Dr. Powell within 1 week so discharge. She is to continue her home medications and also take Aspirin daily. Patient is to follow up with her pain Dr. Took within 1-2 post follow up for pain management of her cervical disc disease. Patient is to ask this doctor about possible steroids injections her pain. Patient is to take the following medications: 1. Aspirin 81mg, take one by mouth daily, disp #30, no refills 2. Valsartan 160 mg one by mouth daily, disp #30, no refills 3. Benzonatate 200mg by mouth three time a day (pt. already has refills at home) Patient is to consume a low sodium diet. Refills of her medications were sent to her preferred pharmacy. Patient is to return to the emergency room if symptoms return. All instructions explained to the patient and she agrees.
[2017-06-17] MEDS ORDERED: Iohexol 350mg/ml 100 ML ONE (10:18)
[2017-06-17] MEDS: Oxycodone/Acetaminophen 5/325 mg Tab PO PRN ×2 (11:33→16:13)
--- NOTE | 2017-06-17 13:21 | VASCLAB ---
PROCEDURE: HISTORY: dizziness COMPARISON: None available. TECHNIQUE: Grayscale and duplex Doppler evaluation of the cervical carotid and vertebral arteries were performed. The common carotid, carotid bifurcations and cervical Internal Carotid Artery (ICA) and proximal External Carotid Artery (ECA) were evaluated. The vertebral arteries were evaluated for gross patency and flow direction. Report prepared by Steph Jackson [place] FINDINGS: RIGHT CAROTID ARTERIES: 1. Common Carotid Artery: No significant focal plaque formation of the right common carotid artery. Maximum Peak Systolic velocity: 98.4 cm/sec: End-diastolic velocity 30.8 cm/sec. 2. Carotid Bifurcation: No significant focal plaque formation. Maximum Peak Systolic velocity: 97.0 cm/sec: End-diastolic velocity 29.4 cm/sec. 3. Internal Carotid Artery: No significant focal plaque. Plaque description: 3.1. Proximal Segment: Peak systolic velocity 79.0 cm/sec: End-diastolic velocity 24.1 cm/sec - % stenosis 0-15% 3.2. Middle Segment: Peak systolic velocity 55.5 cm/sec: End-diastolic velocity 20.1 cm/sec - % stenosis 0-15% 3.3. Distal Segment: Peak systolic velocity 76.4 cm/sec: End-diastolic velocity 30.7 cm/sec - % stenosis 0-15% 4. External Carotid Artery: No significant focal plaque formation. Peak systolic velocity 78.2 cm/sec 5. ICA/CCA Ratio: 1.0 LEFT CAROTID ARTERIES: 1. Common Carotid Artery: No significant focal plaque formation of the left common carotid artery. Maximum Peak Systolic velocity: 120.2 cm/sec: End-diastolic velocity 39.5 cm/sec. 2. Carotid Bifurcation: No significant focal plaque formation. Maximum Peak Systolic velocity: 99.5 cm/sec: End-diastolic velocity 34.5 cm/sec. 3. Internal Carotid Artery: No significant focal plaque. Plaque description: 3.1. Proximal Segment: Peak systolic velocity 57.4 cm/sec: End-diastolic velocity 17.9 cm/sec - % stenosis 0-15% 3.2. Middle Segment: Peak systolic velocity 63.3 cm/sec: End-diastolic velocity 28.8 cm/sec - % stenosis 0-15% 3.3. Distal Segment: Peak systolic velocity 55.1 cm/sec: End-diastolic velocity 22.3 cm/sec - % stenosis 0-15% 4. External Carotid Artery: Minimal plaque formation of the left ECA which does not result in hemodynamically significant stenosis. Peak systolic velocity 69.4 cm/sec 5. ICA/CCA Ratio: 0.8 VERTEBRAL ARTERIES: 1. Right Vertebral Artery: The right vertebral artery flow direction is antegrade. 2. Left Vertebral Artery: The left vertebral artery flow direction is antegrade. OTHER FINDINGS: 1. Right Brachial Blood pressure: mmHg. 2. Left Brachial Blood pressure: mmHg. IMPRESSION: RIGHT: Duplex scan does not suggest hemodynamically significant stenosis of the right extracranial carotid arteries. LEFT: Duplex scan does not suggest hemodynamically significant stenosis of the left extracranial carotid arteries.
[2017-06-17] MEDS: Alum-Mag Hydrox-Simethicone Susp (30 mL) PO PRN (13:53)
[2017-06-17] MEDS ORDERED: Bisacodyl 5mg EC Tab PO ONE (13:55)
[2017-06-17] MEDS ORDERED: Pneumococcal 23-Valent Vaccine IM ONE (14:00)
--- NOTE | 2017-06-17 14:46 | CT ---
PROCEDURE: CT Cervical Spine without contrast HISTORY: Left arm paresthesias/radiculopathy. COMPARISON: Cervical spine radiograph 01/31/2014 TECHNIQUE: Axial computed tomography images were obtained of the cervical spine without the use of intravenous contrast. Coronal and sagittal reformatted images were created and reviewed. Radiation dose: Total exam DLP = 563.77 mGy-cm. This CT exam was performed using one or more of the following dose reduction techniques: Automated exposure control, adjustment of the mA and/or kV according to patient size, and/or use of iterative reconstruction technique. FINDINGS: VERTEBRAE: There is a reversal the cervical curvature without definite fracture or spondylolisthesis identified. Multilevel facet joint arthropathy is identified. No definite destructive bony lesion identified. DISCS/SPINAL CANAL/NEURAL FORAMINA: No significant bony central stenosis appreciate throughout the cervical spine although mild multilevel spondylosis appreciated involving C4-5, C5-6 and C6-7, predominantly anterior rather than posterior. Minimal disc bulging is appreciate without significant stenosis at C3-4 with limited disc osteophyte complex identified at C6-7 as well. A borderline right C4 root foraminal stenosis appreciated on a degenerative basis. The remaining neural foramina appear widely patent throughout the cervical spine. PARASPINAL SOFT TISSUES: Unremarkable. OTHER FINDINGS: None. IMPRESSION: Limited reversal of the the cervical curvature with a borderline right C4 root foraminal stenosis identified. No definite fracture or spondylolisthesis identified.
[2017-06-17 16:49] VITALS: BP 108/74; PULSE 63; TEMP 98; O2SAT 96
== END 2017-06-17 18:54 | disposition home or self-care (01) | DRG 19 ==
LOC: SUPCPDRO 20:14 → C.ER 20:14 → C.6T 21:48 → C.9E 21:48
PROVIDERS: ADMIT Internal Medicine Pulmonary Disease; ATTEND Internal Medicine Pulmonary Disease
DX: M54.12 Radiculopathy, cervical region (principal); I11.9 Hypertensive heart disease without heart failure; J45.909 Unspecified asthma, uncomplicated; Z68.35 Body mass index [BMI] 35.0-35.9, adult; Z87.891 Personal history of nicotine dependence; K21.9 Gastro-esophageal reflux disease without esophagitis; R20.2 Paresthesia of skin

== ENCOUNTER 2017-06-24 07:35 | Emergency (ER) | payer OTHER ==
[2017-06-24 07:35] VITALS: BMI 34.7
--- NOTE | 2017-06-24 08:04 | C.PDOC ---
History Of Present Illness 52 y/o female with history of TIA and HTN presents to ED with complaints of right sided headache, right arm and leg pain. Patient states she has history of pinch nerve but denies any new injuries, weakness, numbness, stiffness or any other complaints at this time. Time Seen by Provider: 06/24/17 07:42 Chief Complaint (Nursing): Headache History Per: Patient History/Exam Limitations: no limitations Onset/Duration Of Symptoms: Days Current Symptoms Are (Timing): Still Present Quality: "Pain" Past Medical History Reviewed: Historical Data, Nursing Documentation, Vital Signs Vital Signs: Last Vital Signs Temp 98.1 F 06/24/17 11:57 Pulse 72 06/24/17 11:57 Resp 18 06/24/17 11:57 BP 113/76 06/24/17 11:57 Pulse Ox 100 06/24/17 11:57 - Medical History PMH: Anemia, Arthritis, Asthma, Diverticulitis, Fractures, Gastritis, HTN, Migraine Surgical History: Cholecystectomy, Endoscopy - [facility] Procedures RADICAL EXCIS SKIN LES (08/18/14) Family History: States: No Known Family Hx - Social History Hx Tobacco Use: Yes Hx Alcohol Use: Yes (Socially) Hx Substance Use: No - Immunization History Hx Tetanus Toxoid Vaccination: No Hx Influenza Vaccination: No Hx Pneumococcal Vaccination: No Review Of Systems Except As Marked, All Systems Reviewed And Found Negative. Musculoskeletal: Positive for: Arm Pain, Leg Pain Neurological: Positive for: Headache Physical Exam - Physical Exam Appears: Non-toxic, No Acute Distress Skin: Warm, Dry, No Rash Head: Atraumatic, Normacephalic Eye(s): bilateral: Normal Inspection Oral Mucosa: Moist Neck: Normal ROM, Supple Cardiovascular: Rhythm Regular Respiratory: Normal Breath Sounds, No Rales, No Rhonchi, No Wheezing Gastrointestinal/Abdominal: Soft, No Tenderness, No Guarding, No Rebound Neurological/Psych: Oriented x3 ED Course And Treatment - Laboratory Results Result Diagrams: 06/24/17 08:44 06/24/17 08:44 O2 Sat by Pulse Oximetry: 99 (RA) Pulse Ox Interpretation: Normal Medical Decision Making Medical Decision Making: non specific right sided pain. no weakness, paresthesia, h/o of cervical radicuolpathy. no weakness, no droop, deficit, h/o of tia. labs imaging pending 1021: pt reassesed: pain improved. states pain from 8/10 to 5/10. additional toradol dosed 1120: pt states symptoms improving. on phone in [place]. neuro intact. labs imaging neg. 1145: discussed case with dr hopkins. reports pt with known radiculopahty. agrees with outpt f/u. no leg swelling acute dvt less likely Disposition - Disposition Disposition: HOME/ ROUTINE Disposition Time: 11:22 Condition: STABLE Additional Instructions: please follow up with dr hopkins and you pain management doctor. return to er with worsening symptoms or concerns. Prescriptions: Naproxen [Naprosyn] 500 mg PO BID PRN #14 tablet PRN Reason: Pain, Mild (1-3) Instructions: Acute Headache (ED), Leg Pain (ED), Arm Pain (ED) Forms: [employer] (Urdu) - Clinical Impression Clinical Impression: Headache, Extremity pain - Scribe Statement The provider has reviewed the documentation as recorded by the Sadieibabdiel Shook All medical record entries made by the Sadieibabdiel were at my direction and personally dictated by me. I have reviewed the chart and agree that the record accurately reflects my personal performance of the history, physical exam, medical decision making, and the department course for this patient. I have also personally directed, reviewed, and agree with the discharge instructions and disposition.
[2017-06-24 08:48] LABS: BASO # 0.1 K/uL (0.0-0.2); BASO % 1.1 % (0.0-2.0); EOS # 0.2 K/uL (0.0-0.7); EOS % 3.7 % (0.0-4.0); HEMOGLOBIN 10.9 g/dL (11.0-16.0); LYMPH # 1.5 K/uL (1.0-4.3); MEAN CELL VOLUME 74.8 fL (81.0-99.0); MEAN CORPUSCULAR HEMOGLOBIN 24.3 pg (27.0-31.0); MEAN CORPUSCULAR HGB CONC 32.5 g/dL (33.0-37.0); MEAN PLATELET VOLUME 7.5 fL (7.2-11.7); MONO # 0.5 K/uL (0.0-0.8); MONO % 10.3 % (0.0-10.0); NEUT # 2.3 K/uL (1.8-7.0); NEUT % 50.9 % (50.0-75.0); NRBC % 0.1 % (0.0-2.0); RBC 4.46 Mil/uL (3.80-5.20); RED CELL DISTRIBUTION WIDTH 15.1 % (11.5-14.5); WHITE BLOOD COUNT 4.5 K/uL (4.8-10.8)
[2017-06-24 08:56] LABS: INR 1.1; PROTHROMBIN TIME 12.4 SECONDS (9.7-12.2)
[2017-06-24 09:13] LABS: ALB/GLOB RATIO 1.1 (1.0-2.1); ALBUMIN 4.1 g/dL (3.5-5.0); ALT/SGPT 33 U/L (9-52); AST/SGOT 20 U/L (14-36); BLOOD UREA NITROGEN 14 mg/dL (7-17); CALCIUM 9.2 mg/dl (8.6-10.4); GFR AFRICAN-AMERICAN > 60; GFR NON-AFRICAN AMERICAN > 60
[2017-06-24 09:53] LABS: SQUAMOUS EPITHIAL 5 /hpf (0-5); URINE BACTERIA RARE (<OCC); URINE BILIRUBIN NEGATIVE (NEGATIVE); URINE BLOOD 1+ (NEGATIVE); URINE CLARITY Clear (Clear); URINE COLOR Yellow (YELLOW); URINE GLUCOSE (UA) NORMAL (Normal); URINE LEUKOCYTE ESTERASE NEG Leu/uL (Negative); URINE NITRATE NEGATIVE (NEGATIVE); URINE PROTEIN NEGATIVE (NEGATIVE)
[2017-06-24 09:54] LABS: HCG,QUALITATIVE URINE NEGATIVE (NEGATIVE)
--- NOTE | 2017-06-24 10:18 | CT ---
PROCEDURE: CT HEAD WITHOUT CONTRAST. HISTORY: braun COMPARISON: 06/15/2017 TECHNIQUE: Axial computed tomography images were obtained through the head/brain without intravenous contrast. Radiation dose: Total exam DLP = 1076.85 mGy-cm. This CT exam was performed using one or more of the following dose reduction techniques: Automated exposure control, adjustment of the mA and/or kV according to patient size, and/or use of iterative reconstruction technique. FINDINGS: HEMORRHAGE: No intracranial hemorrhage. BRAIN: No mass effect or edema. No atrophy or chronic microvascular ischemic changes. VENTRICLES: Unremarkable. No hydrocephalus. CALVARIUM: No fracture. Calcification at left vertex may represent small extra-axial meningioma. PARANASAL SINUSES: Unremarkable as visualized. No significant inflammatory changes. MASTOID AIR CELLS: Unremarkable as visualized. No inflammatory changes. OTHER FINDINGS: None. IMPRESSION: No intracranial mass, hemorrhage or evidence of acute infarct. Possible small left vertex calcified meningioma. Otherwise unremarkable.
[2017-06-24 11:58] VITALS: BP 113/76; PULSE 72; RESP 18; TEMP 98.1
[2017-06-24 14:07] VITALS: O2SAT 99
== END 2017-06-24 12:30 | disposition home or self-care (01) ==
LOC: C.ER 07:35
DX: R51 Headache (principal); M79.601 Pain in right arm; M79.604 Pain in right leg; I10 Essential (primary) hypertension; Z86.73 Personal history of transient ischemic attack (TIA), and cerebral infarction without residual deficits; Z87.891 Personal history of nicotine dependence
CPT/HCPCS: 70450; 80053; 81001; 82948; 84703; 85025; 85610; 85730; 96374; 99285; J1885

== ENCOUNTER 2017-06-28 10:56 | Emergency (ER) | payer OTHER ==
[2017-06-28 10:57] VITALS: BMI 34.7
[2017-06-28 11:05] VITALS: O2SAT 100
[2017-06-28 11:12] LABS: BASO % 0.9 % (0.0-2.0); EOS # 0.1 K/uL (0.0-0.7); EOS % 2.9 % (0.0-4.0); HEMOGLOBIN 11.4 g/dL (11.0-16.0); LYMPH # 2.1 K/uL (1.0-4.3); LYMPH % 41.6 % (20.0-40.0); MEAN CELL VOLUME 74.8 fL (81.0-99.0); MEAN CORPUSCULAR HEMOGLOBIN 24.5 pg (27.0-31.0); MEAN CORPUSCULAR HGB CONC 32.7 g/dL (33.0-37.0); MEAN PLATELET VOLUME 7.3 fL (7.2-11.7); MONO # 0.4 K/uL (0.0-0.8); MONO % 8.8 % (0.0-10.0); NEUT # 2.3 K/uL (1.8-7.0); NEUT % 45.8 % (50.0-75.0); NRBC % 0.1 % (0.0-2.0); RBC 4.66 Mil/uL (3.80-5.20); RED CELL DISTRIBUTION WIDTH 14.9 % (11.5-14.5)
--- NOTE | 2017-06-28 11:20 | CT ---
PROCEDURE: CT HEAD WITHOUT CONTRAST. HISTORY: code stroke COMPARISON: 06/24/2017 TECHNIQUE: Axial computed tomography images were obtained through the head/brain without intravenous contrast. Radiation dose: Total exam DLP = 1030.81 mGy-cm. This CT exam was performed using one or more of the following dose reduction techniques: Automated exposure control, adjustment of the mA and/or kV according to patient size, and/or use of iterative reconstruction technique. FINDINGS: HEMORRHAGE: No intracranial hemorrhage. BRAIN: No mass effect or edema. No atrophy or chronic microvascular ischemic changes. VENTRICLES: Unremarkable. No hydrocephalus. CALVARIUM: No fracture. Small calcification at left vertex may represent a small calcified meningioma. No change from previous. PARANASAL SINUSES: Unremarkable as visualized. No significant inflammatory changes. MASTOID AIR CELLS: Unremarkable as visualized. No inflammatory changes. OTHER FINDINGS: None. IMPRESSION: Normal CT of the Head. No evidence of acute infarct. No intracranial mass or hemorrhage. The findings in this examination were discussed by telephone with Dr. García At 11:20 a.m.
[2017-06-28 11:26] LABS: ALB/GLOB RATIO 1.1 (1.0-2.1); ALBUMIN 4.4 g/dL (3.5-5.0); ALT/SGPT 41 U/L (9-52); AST/SGOT 24 U/L (14-36); BLOOD UREA NITROGEN 13 mg/dL (7-17); CALCIUM 9.5 mg/dl (8.6-10.4); GFR AFRICAN-AMERICAN > 60; GFR NON-AFRICAN AMERICAN > 60; HDL CHOLESTEROL 47 mg/dL (30-70); INR 1.1; PROTHROMBIN TIME 12.7 SECONDS (9.7-12.2)
[2017-06-28 11:36] LABS: LDL CHOLESTEROL 55 mg/dL (0-129)
--- NOTE | 2017-06-28 12:22 | RAD ---
HISTORY: code stroke COMPARISON: 06/14/2017 FINDINGS: LUNGS: No active pulmonary disease. PLEURA: No significant pleural effusion identified, no pneumothorax apparent. CARDIOVASCULAR: Normal. OSSEOUS STRUCTURES: No significant abnormalities. VISUALIZED UPPER ABDOMEN: Normal. OTHER FINDINGS: None. IMPRESSION: No active disease.
[2017-06-28 12:46] VITALS: BP 115/75; PULSE 65; RESP 11; TEMP 98.7
--- NOTE | 2017-06-28 18:37 | C.PDOC ---
History Of Present Illness 52 y/o female presents to the ER after she was on a stationary bike at when she felt weakness over the left lower extremity 3 weeks ago. Patient states that she got off the bicycle and the symptoms resolved after several minutes. Patient states that she has a history of TIA which affected the left side of her body with no residual deficits. Currently, the patient is not complaining of chest pain, SOB, vision changes, sensory changes, and motor deficits. Chief Complaint (Nursing): Dizziness/Lightheaded History Per: Patient History/Exam Limitations: no limitations Onset/Duration Of Symptoms: Days Severity: Moderate Past Medical History Reviewed: Historical Data, Nursing Documentation, Vital Signs Vital Signs: Last Vital Signs Temp 98.7 F 06/28/17 12:45 Pulse 65 06/28/17 12:45 Resp 11 L 06/28/17 12:45 BP 115/75 06/28/17 12:45 Pulse Ox 100 06/28/17 18:54 - Medical History PMH: Anemia, Arthritis, Asthma, Diverticulitis, Fractures, Gastritis, HTN, Migraine, TIA Denies: Chronic Kidney Disease Surgical History: Cholecystectomy, Endoscopy - [facility] Procedures RADICAL EXCIS SKIN LES (08/18/14) Family History: States: No Known Family Hx - Social History Hx Tobacco Use: Yes Hx Alcohol Use: Yes (Socially) Hx Substance Use: No - Immunization History Hx Tetanus Toxoid Vaccination: No Hx Influenza Vaccination: No Hx Pneumococcal Vaccination: No Review Of Systems Except As Marked, All Systems Reviewed And Found Negative. Constitutional: Positive for: Weakness (weakness in left lower extremity) Eyes: Negative for: Vision Change Cardiovascular: Negative for: Chest Pain Respiratory: Negative for: Shortness of Breath Physical Exam - Physical Exam Appears: Non-toxic, No Acute Distress Skin: Normal Color, Warm Head: Atraumatic, Normacephalic Eye(s): bilateral: Normal Inspection Nose: Normal Oral Mucosa: Moist Neck: Supple Chest: Symmetrical Cardiovascular: Rhythm Regular Respiratory: Normal Breath Sounds, No Accessory Muscle Use, No Rales, No Rhonchi , No Wheezing Gastrointestinal/Abdominal: Normal Exam, Soft, No Tenderness Extremity: Normal ROM Neurological/Psych: Oriented x3, Normal Speech, Normal Cognition, Normal Motor, Normal Sensation ED Course And Treatment - Laboratory Results Result Diagrams: 06/28/17 11:07 06/28/17 11:07 ECG: Interpreted By Me, Viewed By Me ECG Rhythm: Sinus Rhythm Interpretation Of ECG: NSR with an incomplete RBBB Rate From EC O2 Sat by Pulse Oximetry: 100 (RA) Pulse Ox Interpretation: Normal - Other Rad No standard instances X-Ray: Viewed By Me, Read By Radiologist Interpretation: HISTORY: code stroke. COMPARISON: 06/14/2017. FINDINGS: LUNGS: No active pulmonary disease. PLEURA: No significant pleural effusion identified, no pneumothorax apparent. CARDIOVASCULAR: Normal. OSSEOUS STRUCTURES: No significant abnormalities. VISUALIZED UPPER ABDOMEN: Normal. OTHER FINDINGS: None. IMPRESSION: No active disease. - CT Scan/US No standard instances Other Rad Studies (CT/US): Read By Radiologist CT/US Interpretation: PROCEDURE: CT HEAD WITHOUT CONTRAST. HISTORY: code stroke. COMPARISON: 06/24/2017. TECHNIQUE: Axial computed tomography images were obtained through the head/brain without intravenous contrast. Radiation dose: Total exam DLP = 1030.81 mGy-cm. This CT exam was performed using one or more of the following dose reduction techniques: Automated exposure control, adjustment of the mA and/or kV according to patient size, and/or use of iterative reconstruction technique. FINDINGS: HEMORRHAGE: No intracranial hemorrhage. BRAIN: No mass effect or edema. No atrophy or chronic microvascular ischemic changes. VENTRICLES: Unremarkable. No hydrocephalus. CALVARIUM: No fracture. Small calcification at left vertex may represent a small calcified meningioma. No change from previous. PARANASAL SINUSES: Unremarkable as visualized. No significant inflammatory changes. MASTOID AIR CELLS: Unremarkable as visualized. No inflammatory changes. OTHER FINDINGS: None. IMPRESSION: Normal CT of the Head. No evidence of acute infarct. No intracranial mass or hemorrhage. The findings in this examination were discussed by telephone with Dr. García At 11:20 a.m. Progress Note: Case discussed with , neurologist, on phone. He states that Plavix should be added to the patient's regimen and patient should be given Plavix 75 mg PO for 21 days. Case was also discussed with , PCP, who is aware of case. Patient to be discharged and told to follow up with in 2 days. Critical Care Time - Critical Care Note Total Time (in mins): 45 (phone calls) Documented critical care: time excludes all time spent performing seperately billable procedures. NIHSS Stroke Scale 2 - Date/Time Evaluation Performed Date Performed: 06/28/17 Time Performed: 11:00 - How Severe is the Stroke Level of Consciousness: 0=Alert LOC to Questions: 0=Both comments correct LOC to commands: 0=Obeys both correctly Best Gaze: 0=Normal Visual: 0=No visual loss Facial: 0=Normal Motor Arm - Left: 0=No drift Motor Arm - Right: 0=No drift Motor Leg - Left: 0=No drift Motor Leg - Right: 0=No drift Limb Ataxia: 0=Absent Sensory: 0=Normal Best Language: 0=No aphasia Dysarthia: 0=Normal articulation Extinction & Inattention (Neglect): 0=Normal, no object Score: 0 Severity Of Stroke: 0 = No Stroke rTPA Inclusion/Exclusion - Refusal of Treatment Patient Refused Treatment: No - Inclusion Criteria for Altepase Patient is 18 years or Older: Yes The Clinical Diagnosis of Ischemic Stroke That is Causing a Potentially Disabling Neurological Deficit: No Time of Onset is Well Established to be Less Than 270 Minute Before Treatment Would Begin: Yes Risk/Benefit Discussed With Patient/Family Member Present: Yes Medical Decision Making Medical Decision Making: Plan --Labs --CT-Head --CXR Disposition - Disposition Referrals: Marcella Powell MD [Staff Provider] - Disposition: HOME/ ROUTINE Disposition Time: 12:00 Condition: GOOD Additional Instructions: Thank you for letting us take care of you today. The emergency medical care you received today was directed at your acute symptoms. If you were prescribed any medication, please fill it and take as directed. It may take several days for your symptoms to resolve. Return to the Emergency Department if your symptoms worsen, do not improve, or if you have any other problems. Please contact your doctor or call one of the physicians/clinics you have been referred to that are listed on the Patient Visit Information form that is included in your discharge packet. Bring any paperwork you were given at discharge with you along with any medications you are taking to your follow up visit. Our treatment cannot replace ongoing medical care by a primary care provider (PCP) outside of the emergency department. Thank you for allowing the [facility] team to be part of your care today. Follow up with your doctor in 2-3 days for re-evaluation and further management. Prescriptions: Clopidogrel [Plavix] 75 mg PO DAILY #21 tab Instructions: Transient Ischemic Attack (ED), Weakness (ED) - Clinical Impression Clinical Impression: Weakness - Scribe Statement The provider has reviewed the documentation as recorded by the Sadieibe Daniel Sommers Provider Attestation: All medical record entries made by the Sadieibe were at my direction and personally dictated by me. I have reviewed the chart and agree that the record accurately reflects my personal performance of the history, physical exam, medical decision making, and the department course for this patient. I have also personally directed, reviewed, and agree with the discharge instructions and disposition.
== END 2017-06-28 13:25 | disposition home or self-care (01) ==
LOC: C.ER 10:56
DX: R53.1 Weakness (principal); I10 Essential (primary) hypertension; D64.9 Anemia, unspecified; Z86.73 Personal history of transient ischemic attack (TIA), and cerebral infarction without residual deficits; Z87.891 Personal history of nicotine dependence

== ENCOUNTER 2017-07-17 21:03 | Inpatient (IN) | payer OTHER ==
[2017-07-17 21:03] VITALS: BMI 34.7
[2017-07-17] MEDS ORDERED: Naproxen 550 mg Tab PO STA (23:57)
[2017-07-18] MEDS ORDERED: Naproxen 550 mg Tab PO ONE (00:03)
--- NOTE | 2017-07-18 00:14 | C.PDOC ---
History Of Present Illness 52 year old female with history of HTN and TIA in May 2017 presents to the ED for evaluation of sharp midsternal and left sided chest pain since 20:30 this evening. Patient reports pain was mild at onset and has progressively worsened. Pain is worse with deep breath and patient states that she feels short of breath. No URI symptoms, fever, or abdominal pain. No other acute complaints at this time. Time Seen by Provider: 07/17/17 23:47 Chief Complaint (Nursing): Chest Pain History Per: Patient History/Exam Limitations: no limitations Onset/Duration Of Symptoms: Hrs, Worse Since Severity: Mild Exacerbating Factors: Deep Breathing Recent travel outside of the [place]: No Past Medical History Reviewed: Historical Data, Nursing Documentation, Vital Signs Vital Signs: Last Vital Signs Temp 98 F 07/18/17 00:51 Pulse 89 07/18/17 00:51 Resp 18 07/18/17 00:51 BP 109/86 07/18/17 00:51 Pulse Ox 100 07/18/17 01:23 - Medical History PMH: Anemia, Anxiety, Arthritis, Asthma, Back Problems, Diverticulitis, Fractures, Gastritis, HTN, Migraine, Sleep Apnea, TIA Denies: Chronic Kidney Disease Surgical History: Cholecystectomy, Endoscopy - [facility] Procedures RADICAL EXCIS SKIN LES (08/18/14) Family History: States: Unknown Family Hx - Social History Hx Tobacco Use: Yes Hx Alcohol Use: No (Socially) Hx Substance Use: No - Immunization History Hx Tetanus Toxoid Vaccination: No Hx Influenza Vaccination: Yes Hx Pneumococcal Vaccination: No Review Of Systems Constitutional: Negative for: Fever, Chills ENT: Negative for: Ear Pain, Throat Pain Cardiovascular: Positive for: Chest Pain Respiratory: Positive for: Shortness of Breath. Negative for: Cough Gastrointestinal: Negative for: Nausea, Vomiting, Abdominal Pain, Diarrhea Genitourinary: Negative for: Dysuria, Frequency Skin: Negative for: Rash Neurological: Negative for: Headache Physical Exam - Physical Exam Appears: Well, Non-toxic, No Acute Distress Skin: Normal Color, Warm, Dry Head: Atraumatic, Normacephalic Eye(s): bilateral: Normal Inspection, PERRL, EOMI Oral Mucosa: Moist Throat: Normal Neck: Normal ROM, Supple Chest: Tenderness (along left sternal border and along costal margin) Cardiovascular: Rhythm Regular (Rate Regular ) Respiratory: Normal Breath Sounds, No Rales, No Rhonchi, No Wheezing Gastrointestinal/Abdominal: Soft, No Tenderness Back: Normal Inspection Extremity: Normal ROM, No Deformity Neurological/Psych: Oriented x3, Normal Speech ED Course And Treatment - Laboratory Results Result Diagrams: 07/18/17 00:17 07/18/17 00:17 Lab Interpretation: No Acute Changes ECG: Interpreted By Me ECG Rhythm: Sinus Rhythm (with left axis) ECG Interpretation: No Acute Changes O2 Sat by Pulse Oximetry: 100 Pulse Ox Interpretation: Normal - Radiology CXR: Interpreted by Me CXR Interpretation: Yes: No Acute Disease Reevaluation Time: 01:14 Reassessment Condition: Unchanged (Patient still c/o chest pain and states she has had this pain before and prefers to stay in the hospital.) - Physician Consult Information Time Consulting Physician Contacted: :14 Physician Contacted: Marcella Powell Disposition - Disposition Disposition: HOSPITALIZED Disposition Time: 01:16 Condition: STABLE - Clinical Impression Clinical Impression: Chest discomfort, Precordial pain - Scribe Statement The provider has reviewed the documentation as recorded by the Sadieibabdiel Ayers Provider Attestation: All medical record entries made by the Scribe were at my direction and personally dictated by me. I have reviewed the chart and agree that the record accurately reflects my personal performance of the history, physical exam, medical decision making, and the department course for this patient. I have also personally directed, reviewed, and agree with the discharge instructions and disposition. Physician Patient Turnover Patient Signed Over To: Deangelo Burnett Handoff Comments: pending discussion with dr Powell
[2017-07-18 00:21] LABS: BASO % 0.6 % (0.0-2.0); EOS # 0.1 K/uL (0.0-0.7); EOS % 2.7 % (0.0-4.0); HEMOGLOBIN 10.3 g/dL (11.0-16.0); LYMPH # 2.2 K/uL (1.0-4.3); MEAN CELL VOLUME 74.7 fL (81.0-99.0); MEAN CORPUSCULAR HEMOGLOBIN 24.8 pg (27.0-31.0); MEAN CORPUSCULAR HGB CONC 33.1 g/dL (33.0-37.0); MEAN PLATELET VOLUME 7.8 fL (7.2-11.7); MONO # 0.6 K/uL (0.0-0.8); MONO % 10.3 % (0.0-10.0); NEUT # 2.6 K/uL (1.8-7.0); NEUT % 47.4 % (50.0-75.0); NRBC % 0.1 % (0.0-2.0); RBC 4.18 Mil/uL (3.80-5.20); RED CELL DISTRIBUTION WIDTH 15.4 % (11.5-14.5); WHITE BLOOD COUNT 5.6 K/uL (4.8-10.8)
[2017-07-18 00:48] LABS: ALB/GLOB RATIO 1.1 (1.0-2.1); ALBUMIN 3.7 g/dL (3.5-5.0); ALT/SGPT 36 U/L (9-52); AST/SGOT 26 U/L (14-36); BLOOD UREA NITROGEN 12 mg/dL (7-17); CALCIUM 9.1 mg/dl (8.6-10.4); GFR AFRICAN-AMERICAN > 60; GFR NON-AFRICAN AMERICAN > 60
[2017-07-18] MEDS ORDERED: Oxycodone/Acetaminophen 5/325 mg Tab PO PRN (05:25)
--- NOTE | 2017-07-18 09:30 | RAD ---
Chest x-ray single frontal view History: Chest pain. Comparison: 06/28/2017 Findings: No focal infiltrate or effusion. Heart size within normal limits. Small radiopaque density seen at the right glenohumeral joint space, nonspecific. Clinical correlation. Impression: No focal infiltrate or effusion.
[2017-07-18] MEDS ORDERED: Enoxaparin 40 mg Syringe ONE (10:44)
[2017-07-18] MEDS ORDERED: Pantoprazole 40 mg EC Tab PO ONE (10:45)
--- NOTE | 2017-07-18 10:49 | CP.PCM.PN ---
Subjective - Date & Time of Evaluation Date of Evaluation: 07/18/17 Time of Evaluation: 10:52 - Subjective Subjective: PGY2 Note for Dr. Stanislav Lima This is a 52yo F well known to Dr. Stanislav lima who is coming in for chest pain; she recently had a cardiac workup no less than a month ago which did not find any abnormalities; the patient is coming in for continued chest pain. She has no complaints at the time I saw her; denies headaches, dizziness, chest pain , shortness of breath, abdominal pain, n/v/d, dysuria/frreq/urg or lower extremity pain/swelling Of note the patient states she knows she has a hiatal hernia, which she has not had investigated any further and she believes this could be causing some of her chest discomfort. Objective - Vital Signs/Intake and Output Vital Signs (last 24 hours): Temp Pulse Resp BP Pulse Ox 98.6 F 65 18 117/75 98 07/18/17 08:10 07/18/17 08:10 07/18/17 08:10 07/18/17 08:10 07/18/17 08:10 - Medications Medications: Current Medications Aspirin (Aspirin Chewable) 81 mg PO DAILY [facility] Clopidogrel Bisulfate (Plavix) 75 mg PO DAILY [facility] Enoxaparin Sodium (Lovenox) 40 mg SC DAILY [facility] Oxycodone/Acetaminophen (Percocet 5/325 Mg Tab) 1 tab PO Q4H PRN PRN Reason: Pain, moderate (4-7) Stop: 07/21/17 05:26 Pantoprazole Sodium (Protonix Ec Tab) 40 mg PO DAILY [facility] Rosuvastatin Calcium (Crestor) 20 mg PO HS AGUILA - Labs Labs: 07/18/17 00:17 07/18/17 00:17 - Constitutional Appears: Well, Non-toxic, No Acute Distress - Head Exam Head Exam: ATRAUMATIC, NORMAL INSPECTION - Eye Exam Eye Exam: EOMI, Normal appearance, PERRL Pupil Exam: NORMAL ACCOMODATION - ENT Exam ENT Exam: Mucous Membranes Moist, Normal Exam - Neck Exam Neck Exam: Full ROM. absent: Lymphadenopathy - Respiratory Exam Respiratory Exam: Clear to Ausculation Bilateral, NORMAL BREATHING PATTERN. absent: Rales, Rhonchi, Wheezes - Cardiovascular Exam Cardiovascular Exam: REGULAR RHYTHM, +S1, +S2 - GI/Abdominal Exam GI & Abdominal Exam: Soft, Normal Bowel Sounds - Extremities Exam Extremities Exam: Full ROM. absent: Calf Tenderness - Back Exam Back Exam: NORMAL INSPECTION. absent: CVA tenderness (L), CVA tenderness (R) - Neurological Exam Neurological Exam: Alert, Awake, Normal Gait, Oriented x3 - Psychiatric Exam Psychiatric exam: Anxious - Skin Skin Exam: Warm Assessment and Plan - Assessment and Plan (Free Text) Assessment: 52yo F admitted for chest pain Chest Pain -Dr. Waggoner Cardiology Consulted; thank you for your help -consider cardiac cath? -KELLY negative times 1; f/u results -Stress test done today; normal results -previous stress test from less than a month ago as well -patient has hx of hiatal hernia; patient may have pain from this -ASA, Losartan, Plavix on board already as patient takes outpatient If Dr. Waggoner has no acute intervention planned for this inpatient stay, the patient is stable for d/c as per Dr. Powell with no further changes in her medical management. Hx of Transient Ischemic Attack ASA 81mg PO daily Crestor 20mg PO HS Previous Lipid Panel: Trig - 86 Chol 173 LDL 96 HDL 35; low for female encouraged exercise Cervical disc disease;chronic Patient is to follow up with her outpatient pain management nothing to acutely manage Hypertension Controlled Losartan 100mg PO daily Procardia Toprol XL Low sodium diet Impaired glucose tolerance HBA1c - 6.2 Diet and lifestyle modification Prophylaxis Measures: Lovenox 40mg SC daily Protonix 40mg PO daily All management as per Dr. Powell.
[2017-07-18] MEDS: Pantoprazole 40 mg EC Tab PO SCH (11:33)
[2017-07-18] MEDS: Enoxaparin 40 mg Syringe SC SCH (11:33)
[2017-07-18 11:40] VITALS: O2SAT 100
[2017-07-18 12:14] LABS: CK-MB < 0.22 ng/mL (0.0-3.38)
[2017-07-18] MEDS: NIFEdipine 90 mg ER Tab PO SCH (12:22)
[2017-07-18] MEDS: Metoprolol Succinate 12.5 mg XL PO SCH ×2 (12:22→18:36)
[2017-07-18] MEDS ORDERED: Aminophylline 25 mg/ml Inj ONE (14:16)
[2017-07-18 17:11] LABS: CK-MB < 0.22 ng/mL (0.0-3.38)
[2017-07-18 18:35] VITALS: RESP 18
[2017-07-18] MEDS ORDERED: Aluminum Hydroxide/Magnesium Hydroxide Susp (30 mL) PO PRN (19:28)
--- NOTE | 2017-07-19 07:11 | HP ---
HISTORY OF PRESENT ILLNESS: The patient admitted to the hospital with chief complaint of chest pain previous admission for the same complaint. The patient has history of anxiety, questionable history of TIA in the past. PHYSICAL EXAMINATION: GENERAL: The patient is awake, alert and oriented. VITAL SIGNS: Temperature 98, pulse 90. HEENT: Within normal limits. NECK: Supple. CHEST: Symmetrical. HEART: Regular. ABDOMEN: Soft. EXTREMITIES: No edema. IMPRESSION AND PLAN: The patient suffers from chest pain. Patient get bed rest, cardiology evaluation, cardiac enzymes. Marcella Powell MD
--- NOTE | 2017-07-19 07:50 | CP.PCM.CON ---
History of Present Illness - History of Present Illness History of Present Illness: I was asked to evaluate patient by Dr Powell Patient is a 52 year old female with PMH HTN, hypercholesterolemia, hiatal hernia who presents with chest pain. The patient describes a pressure like sensation in the center of the chest which radiates. She has pain intermittent , worse with exertion. There is associated dyspnea. The patient had a regular treadmill stress test, where she did not attain target heart rate, but had no ischemic changes on her EKG. The patient was admitted to due to persistent chest pain. Review of Systems - Constitutional Constitutional: absent: As Per HPI, Anorexia, Chills, Daytime Sleepiness, Excessive Sweating, Fatigue, Fever, Frequent Falls, Headache, Increased Appetite , Lethargy, Malaise, Night Sweats, Snoring, Sleep Apnea, Weight Gain, Weight Loss, Weakness, Other - EENT Eyes: absent: As Per HPI, Blind Spots, Blurred Vision, Change in Vision, Decreased Night Vision, Diplopia, Discharge, Dry Eye, Exophthalmos, Floaters, Irritation, Itchy Eyes, Loss of Peripheral Vision, Pain, Photophobia, Requires Corrective Lenses, Sees Flashes, Spots in Vision, Tunnel Vision, Other Visual Disturbances, Loss of Vision, Other Ears: absent: As Per HPI, Decreased Hearing, Ear Discharge, Ear Pain, Tinnitus, Abnormal Hearing, Disequilibrium, Dizziness, Other Nose/Mouth/Throat: absent: As Per HPI, Epistaxis, Nasal Congestion, Nasal Discharge, Nasal Obstruction, Nasal Trauma, Nose Pain, Post Nasal Drip, Sinus Pain, Sinus Pressure, Bleeding Gums, Change in Voice, Dental Pain, Dry Mouth, Dysphagia, Halitosis, Hoarsness, Lip Swelling, Mouth Lesions, Mouth Pain, Odynophagia, Sore Throat, Throat Swelling, Tongue Swelling, Facial Pain, Neck Pain, Neck Mass, Other - Cardiovascular Cardiovascular: Chest Pain, Chest Pain at Rest, Chest Pain with Activity, Dyspnea on Exertion. absent: Edema, Syncope - Respiratory Respiratory: Dyspnea - Gastrointestinal Gastrointestinal: Dyspepsia, Heartburn - Genitourinary Genitourinary: absent: As Per HPI, Change in Urinary Stream, Difficulty Urinating, Dysuria, Flank Pain, Hematuria, Pyuria, Nocturia, Urinary Incontinence, Urinary Frequency, Urinary Hesitance, Urinary Urgency, Voiding Freq/Small Amts, Freq UTI, Hx Renal/Bladder Calculi, Hx /Renal Surgery, Bladder Distension, Other - Musculoskeletal Musculoskeletal: absent: As Per HPI, Abnormal Gait, Arthralgias, Atrophy, Back Pain, Deformity, Joint Swelling, Limited Range of Motion, Loss of Height, Muscle Cramps, Muscle Weakness, Myalgias, Neck Pain, Numbness, Radiating Pain into Limb, Stiffness, Tingling, Other - Integumentary Integumentary: absent: As Per HPI, Acne, Alopecia, Bleeding Lesions, Change in Hair, Change in Nails, Change in Pigmentation, Changing Lesions, Dry Skin, Erythema, Furuncle, Hirsutism, Lesions, New Lesions, Non-Healing Lesions, Photosensitivity, Pruritus, Rash, Skin Pain, Skin Ulcer, Sores, Striae, Swelling , Unusual Bruising, Wounds, Jaundice, Other - Neurological Neurological: absent: As Per HPI, Abnormal Gait, Abnormal Hearing, Abnormal Movements, Abnormal Speech, Behavioral Changes, Burning Sensations, Confusion, Convulsions, Disequilibrium, Dizziness, Numbness, Focal Weakness, Frequent Falls , Headaches, Lack of Coordination, Loss of Vision, Memory Loss, Paresthesias, Radicular Pain, Restless Legs, Sensory Deficit, Syncope, Tingling, Tremor, Vertigo, Weakness, Other Visual Disturbances, Other - Psychiatric Psychiatric: absent: As Per HPI, Abnormal Sleep Pattern, Anhedonia, Anxiety, Auditory Hallucinations, Behavioral Changes, Change in Appetite, Change in Libido, Confusion, Depression, Difficulty Concentrating, Hallucinations, Homicidal Ideation, Hopelessness, Irritability, Memory Loss, Mood Swings, Panic Attacks, Paranoia, Suicidal Ideation, Visual Hallucinations, Tactile Hallucinations, Other - Endocrine Endocrine: absent: As Per HPI, Change in Body Appearance, Change in Libido, Cold Intolorance, Deepening of Voice, Excessive Sweating, Fatigue, Flushing, Heat Intolorance, Increase in Ring/Shoe/Hat Size, Palpitations, Polydipsia, Polyphagia, Polyuria, Other - Hematologic/Lymphatic Hematologic: absent: As Per HPI, Easy Bleeding, Easy Bruising, Lymphadenopathy, Other Past Patient History - Infectious Disease Hx of Infectious Diseases: None - Past Medical History & Family History Past Medical History?: Yes - Past Social History Smoking Status: Never Smoked - CARDIAC Hx Hypertension: Yes - PULMONARY Hx Asthma: Yes Hx Sleep Apnea: Yes - NEUROLOGICAL Hx Migraine: Yes Hx Transient Ischemic Attacks (TIA): Yes (May 2017) - HEENT Hx HEENT Problems: No - RENAL Hx Chronic Kidney Disease: No - ENDOCRINE/METABOLIC Hx Endocrine Disorders: No - HEMATOLOGICAL/ONCOLOGICAL Hx Anemia: Yes Hx Blood Transfusions: No Hx Hepatitis C: No Hx Human Immunodeficiency Virus (HIV): No - INTEGUMENTARY Hx Dermatological Problems: No - MUSCULOSKELETAL/RHEUMATOLOGICAL Hx Arthritis: Yes Hx Falls: No Hx Fractures: Yes (R ankle, with hardware) Hx Gout: Yes Hx Unsteady Gait: No - GASTROINTESTINAL Hx Gastritis: Yes - GENITOURINARY/GYNECOLOGICAL Hx Genitourinary Disorders: No - PSYCHIATRIC Hx Anxiety: Yes Hx Substance Use: No - SURGICAL HISTORY Hx Cholecystectomy: Yes (?? or gallstones) Hx Orthopedic Surgery: Yes (R ankle) - ANESTHESIA Hx Anesthesia: Yes Hx Anesthesia Reactions: No Hx Malignant Hyperthermia: No Meds Allergies/Adverse Reactions: Allergies Allergy/AdvReac Type Severity Reaction Status Date / Time No Known Allergies Allergy Verified 07/17/17 21:31 - Medications Medications: Current Medications Al Hydrox/Mg Hydrox/Simethicone (Maalox 30 Ml) 30 ml PO BID PRN PRN Reason: Indigestion / Heartburn Last Admin: 07/18/17 21:32 Dose: 30 ml Aspirin (Aspirin Chewable) 81 mg PO DAILY [facility] Clopidogrel Bisulfate (Plavix) 75 mg PO DAILY [facility] Last Admin: 07/18/17 11:33 Dose: 75 mg Enoxaparin Sodium (Lovenox) 40 mg SC DAILY [facility] Last Admin: 07/18/17 11:33 Dose: 40 mg Metoprolol Succinate (Toprol Xl) 12.5 mg PO BID [facility] Last Admin: 07/18/17 18:36 Dose: Not Given Montelukast Sodium (Singulair) 10 mg PO DAILY [facility] Last Admin: 07/18/17 12:23 Dose: 10 mg Nifedipine (Procardia Xl) 90 mg PO DAILY [facility] Last Admin: 07/18/17 12:22 Dose: 90 mg Oxycodone/Acetaminophen (Percocet 5/325 Mg Tab) 1 tab PO Q4H PRN PRN Reason: Pain, moderate (4-7) Stop: 07/21/17 05:26 Last Admin: 07/18/17 17:35 Dose: 1 tab Pantoprazole Sodium (Protonix Ec Tab) 40 mg PO DAILY [facility] Last Admin: 07/18/17 11:33 Dose: 40 mg Rosuvastatin Calcium (Crestor) 20 mg PO HS [facility] Last Admin: 07/18/17 21:32 Dose: 20 mg Physical Exam - Constitutional Appears: Non-toxic - Head Exam Head Exam: NORMAL INSPECTION - Eye Exam Eye Exam: Normal appearance - ENT Exam ENT Exam: Mucous Membranes Moist - Neck Exam Neck exam: Positive for: Full Rom - Respiratory Exam Respiratory Exam: NORMAL BREATHING PATTERN - Cardiovascular Exam Cardiovascular Exam: REGULAR RHYTHM - GI/Abdominal Exam GI & Abdominal Exam: Normal Bowel Sounds - Rectal Exam Rectal Exam: Deferred - Extremities Exam Extremities exam: Positive for: full ROM, pedal pulses present - Back Exam Back exam: NORMAL INSPECTION - Neurological Exam Neurological exam: Alert, Oriented x3 - Psychiatric Exam Psychiatric exam: Normal Mood - Skin Skin Exam: Normal Color Results - Vital Signs Recent Vital Signs: Last Vital Signs Temp 98.3 F 07/18/17 18:35 Pulse 52 L 07/19/17 00:36 Resp 18 07/18/17 18:35 BP 104/66 07/18/17 18:35 Pulse Ox 100 07/18/17 18:35 - Labs Result Diagrams: 07/18/17 00:17 07/18/17 00:17 Labs: Laboratory Results - last 24 hr 07/18/17 07/18/17 11:40 16:32 Total Creatine Kinase 50 57 CK-MB (Mass) < 0.22 < 0.22 Troponin I < 0.0120 < 0.0120 - EKG Data EKG Interpreted by: Myself EKG shows normal: Sinus rhythm Assessment & Plan (1) Chest pain Assessment and Plan: patient had an inconclusive stress test. I recommend nuclear perfusion imaging. I will schedule as an inpatient Status: Chronic Priority: High (2) Hypertension Assessment and Plan: blood pressure control Status: Acute (3) TIA (transient ischemic attack) Assessment and Plan: antiplatelet therapy Status: Acute Priority: High
--- NOTE | 2017-07-19 07:56 | CP.PCM.PN ---
Subjective - Date & Time of Evaluation Date of Evaluation: 07/19/17 Time of Evaluation: 07:30 - Subjective Subjective: patient has no current chest pain or dyspnea. She is s/p stress test yesterday Objective - Vital Signs/Intake and Output Vital Signs (last 24 hours): Temp Pulse Resp BP Pulse Ox 98.3 F 52 L 18 104/66 100 07/18/17 18:35 07/19/17 00:36 07/18/17 18:35 07/18/17 18:35 07/18/17 18:35 - Medications Medications: Current Medications Al Hydrox/Mg Hydrox/Simethicone (Maalox 30 Ml) 30 ml PO BID PRN PRN Reason: Indigestion / Heartburn Last Admin: 07/18/17 21:32 Dose: 30 ml Aspirin (Aspirin Chewable) 81 mg PO DAILY [facility] Clopidogrel Bisulfate (Plavix) 75 mg PO DAILY [facility] Last Admin: 07/18/17 11:33 Dose: 75 mg Enoxaparin Sodium (Lovenox) 40 mg SC DAILY [facility] Last Admin: 07/18/17 11:33 Dose: 40 mg Metoprolol Succinate (Toprol Xl) 12.5 mg PO BID [facility] Last Admin: 07/18/17 18:36 Dose: Not Given Montelukast Sodium (Singulair) 10 mg PO DAILY [facility] Last Admin: 07/18/17 12:23 Dose: 10 mg Nifedipine (Procardia Xl) 90 mg PO DAILY [facility] Last Admin: 07/18/17 12:22 Dose: 90 mg Oxycodone/Acetaminophen (Percocet 5/325 Mg Tab) 1 tab PO Q4H PRN PRN Reason: Pain, moderate (4-7) Stop: 07/21/17 05:26 Last Admin: 07/18/17 17:35 Dose: 1 tab Pantoprazole Sodium (Protonix Ec Tab) 40 mg PO DAILY [facility] Last Admin: 07/18/17 11:33 Dose: 40 mg Rosuvastatin Calcium (Crestor) 20 mg PO HS [facility] Last Admin: 07/18/17 21:32 Dose: 20 mg - Labs Labs: 07/18/17 00:17 07/18/17 00:17 - Constitutional Appears: Non-toxic - Head Exam Head Exam: NORMAL INSPECTION - ENT Exam ENT Exam: Mucous Membranes Moist - Neck Exam Neck Exam: Full ROM - Respiratory Exam Respiratory Exam: NORMAL BREATHING PATTERN - Cardiovascular Exam Cardiovascular Exam: REGULAR RHYTHM - GI/Abdominal Exam GI & Abdominal Exam: Normal Bowel Sounds - Rectal Exam Rectal Exam: Deferred - Extremities Exam Extremities Exam: Full ROM, Normal Inspection - Back Exam Back Exam: NORMAL INSPECTION - Neurological Exam Neurological Exam: Alert, Oriented x3 - Psychiatric Exam Psychiatric exam: Normal Mood - Skin Skin Exam: Normal Color Assessment and Plan (1) Chest pain Assessment & Plan: The pharmacologic stress test shows no evidence of myocardial ischemia. I recommend medical therapy. stable for discharge from cardiac standpoint. Status: Chronic (2) Hypertension Assessment & Plan: blood pressure control Status: Acute (3) TIA (transient ischemic attack) Status: Acute
[2017-07-19 08:20] VITALS: PULSE 69; TEMP 98.4
[2017-07-19 09:01] VITALS: BP 105/66
--- NOTE | 2017-07-19 09:30 | CP.PCM.PN ---
Subjective - Date & Time of Evaluation Date of Evaluation: 07/19/17 Time of Evaluation: 13:19 - Subjective Subjective: PGY2 Medicine Note for Dr. Truong; all management as per dr truong This patient was seen and examined at bedside this AM; denies all symptoms today ; was requesting home o2 but has no indication for it; denies all other symptoms. Objective - Vital Signs/Intake and Output Vital Signs (last 24 hours): Temp Pulse Resp BP Pulse Ox 98.4 F 69 18 105/66 100 07/19/17 08:19 07/19/17 08:19 07/19/17 08:19 07/19/17 08:50 07/19/17 08:19 - Medications Medications: Current Medications Al Hydrox/Mg Hydrox/Simethicone (Maalox 30 Ml) 30 ml PO BID PRN PRN Reason: Indigestion / Heartburn Last Admin: 07/18/17 21:32 Dose: 30 ml Aspirin (Aspirin Chewable) 81 mg PO DAILY [facility] Clopidogrel Bisulfate (Plavix) 75 mg PO DAILY [facility] Last Admin: 07/18/17 11:33 Dose: 75 mg Enoxaparin Sodium (Lovenox) 40 mg SC DAILY [facility] Last Admin: 07/18/17 11:33 Dose: 40 mg Metoprolol Succinate (Toprol Xl) 12.5 mg PO BID [facility] Last Admin: 07/18/17 18:36 Dose: Not Given Montelukast Sodium (Singulair) 10 mg PO DAILY [facility] Last Admin: 07/18/17 12:23 Dose: 10 mg Nifedipine (Procardia Xl) 90 mg PO DAILY [facility] Last Admin: 07/18/17 12:22 Dose: 90 mg Oxycodone/Acetaminophen (Percocet 5/325 Mg Tab) 1 tab PO Q4H PRN PRN Reason: Pain, moderate (4-7) Stop: 07/21/17 05:26 Last Admin: 07/18/17 17:35 Dose: 1 tab Pantoprazole Sodium (Protonix Ec Tab) 40 mg PO DAILY [facility] Last Admin: 07/18/17 11:33 Dose: 40 mg Rosuvastatin Calcium (Crestor) 20 mg PO [facility] Last Admin: 07/18/17 21:32 Dose: 20 mg - Labs Labs: 07/18/17 00:17 07/18/17 00:17 - Constitutional Appears: Well - Head Exam Head Exam: ATRAUMATIC - Eye Exam Eye Exam: EOMI, Normal appearance, PERRL Pupil Exam: PERRL - ENT Exam ENT Exam: Mucous Membranes Moist - Neck Exam Neck Exam: Full ROM. absent: Lymphadenopathy - Respiratory Exam Respiratory Exam: Clear to Ausculation Bilateral, NORMAL BREATHING PATTERN. absent: Rales, Rhonchi, Wheezes - Cardiovascular Exam Cardiovascular Exam: REGULAR RHYTHM, +S1, +S2 - GI/Abdominal Exam GI & Abdominal Exam: Soft, Normal Bowel Sounds. absent: Tenderness - Extremities Exam Extremities Exam: Full ROM. absent: Calf Tenderness - Back Exam Back Exam: NORMAL INSPECTION. absent: CVA tenderness (L), CVA tenderness (R) - Neurological Exam Neurological Exam: Alert, Awake, Oriented x3 - Psychiatric Exam Psychiatric exam: Normal Affect - Skin Skin Exam: Warm Assessment and Plan - Assessment and Plan (Free Text) Assessment: 52yo F admitted for chest pain Chest Pain -Dr. Waggoner Cardiology Consulted; thank you for your help -consider cardiac cath as outpatient -KELLY negative times 3 -Stress test done today; normal results -previous stress test from less than a month ago as well -patient has hx of hiatal hernia; patient may have pain from this -ASA, Losartan, Plavix on board already as patient takes outpatient If Dr. Waggoner has no acute intervention planned for this inpatient stay, the patient is stable for d/c as per Dr. Truong with no further changes in her medical management. The patient is stable for d/c as per Dr. Truong and per Dr. Waggoner the patient can follow up with Dr. Waggoner in his office if she wishes to undergo further cardiac testing; such as a cardiac cath electively Hx of Transient Ischemic Attack ASA 81mg PO daily Crestor 20mg PO HS Previous Lipid Panel: Trig - 86 Chol 173 LDL 96 HDL 35; low for female encouraged exercise Cervical disc disease;chronic Patient is to follow up with her outpatient pain management nothing to acutely manage Hypertension Controlled Losartan 100mg PO daily Procardia Toprol XL Low sodium diet Impaired glucose tolerance HBA1c - 6.2 Diet and lifestyle modification Prophylaxis Measures: Lovenox 40mg SC daily Protonix 40mg PO daily On d/c the patient is encouraged to do the following: c/w Asprin 81mg daily c/w Plavix 75mg daily c/w Toprol 50mg daily c/w Nifedepine Xl 90mg daily c/w Crestor 10mg HS the patient is encouraged to exercise with weight and aerobic exercise to raise her HDL as well She should follow up with Dr. Waggoner if she wishes to undergo further cardiac testing; however every test we have done has been normal She should follow up with a GI specialist for her hiatal hernia which could be causing her chest discomfort All management as per Dr. Truong.
[2017-07-19] MEDS: Enoxaparin 40 mg Syringe SC SCH (09:31)
[2017-07-19] MEDS: Pantoprazole 40 mg EC Tab PO SCH (09:31)
[2017-07-19] MEDS: Metoprolol Succinate 12.5 mg XL PO SCH ×3 (09:31→13:16)
[2017-07-19] MEDS: NIFEdipine 90 mg ER Tab PO SCH (09:36)
--- NOTE | 2017-07-19 13:23 | CARD ---
APPROVED REPORT EKG Measurement Heart [id number] <Conclusion> Normal sinus rhythm Left axis deviation Possible Anterior infarct, age undetermined Abnormal ECG
[2017-07-19] MEDS ORDERED: NIFEdipine 30 mg ER Tab PO SCH (13:30)
--- NOTE | 2017-07-20 14:16 | CARD ---
APPROVED REPORT Protocol: PHARMACOLOGICAL STRESS Test Type: LEXISCAN Test Indications: CHEST PAIN,SOB Medications: LIST SCAN Medical History: CHEST PAIN,SHORTNESS OF BREATH Target HR: 167 bpm Resting ECG: normal Resting Heart Rate: 78 bpm Resting Blood Pressure: 130/60mmHg submaximum (85%): 142 bpm TEST SUMMARY [id number]/60.0. INFUSIONDOSE 100:[id number]/60.0. [id number]/80.0. PROCEDURE Pharmacologic stress testing was performed using 0.4mg per 5ml of regadenoson given intravenously over 7-10 seconds. Reversal agent aminophyline 125 mg, given intravenously for Chest Pain. POST EXERCISE Reason for Termination: Protocol Completed Target HR: No Max HR: 93 bpm 80% of Maximum Predicted HR: 167 bpm Exercise duration: 00:30 min:sec, 0 Stage Exercise capacity: 1.0METs Max Blood Pressure: 157/80mmHg Blood Pressure response to exercise: normal resting BP - appropriate response Heart Rate response to exercise: appropriate Chest Pain: No, none Angina index: 0 Arrhythmia: Yes, ST Change: Yes, Depression horizontal Deviation: 0 mm INTERPRETATION Stress EKG Conclusion: AWAIT NUCLEAR IMAGES EXAM: Myocardial Perfusion STRESS/REST Imaging Protocol The imaging protocol used to acquire images was Stress Tc-99m/rest Tc-99m 1 day Stress Spect myocardial perfusion imaging was performed in supine position 45 minutes following the injection of 12.3 mCi of .Tc-99 Myoview. Gated Rest Spect was performed 55 minutes after intravenous 32.2 mci Tc-99 Myoview injection. The images were gated to evaluate regional wall motion and calculate ventricular ejection fraction.Images were reconstructed using backfilter projection method in short horizontal and verticle long axis. Spect slices were generated. RESTING DATA [id number]/min1/3 Pk. Filling Rate1.51EDV/sec LV Time to Pk. Filling Bqwt194.24msec ESV35.00mlMyocardial Wvja423.00gLV Time to Pk. Ejection Krgy754.48msec Pk. Fill Rate2.13EDV/secAv. Heart Rate64.00bpm EF74.00%Pk. Emptying Rate3.85ESV/sec STRESS DATA GNR120.19cvAI5.30L/min ESV39.00mlMyocardial Ljjr677.00g Pk. Fill Rate3.14EDV/sec EF70.00%Pk. Emptying Rate3.71ESV/sec 1/3 Pk. Filling Rate1.33EDV/secRegional WT score at stress:0.00 LV Time to Pk. Filling Rate:224.25msecRegional WM score at stress:0.00 LV Time to Pk. Ejection Rate:141.45msecSummed WT score at stress:2.00 Av. Heart Rate68.00bpmSummed WM score at stress:0.00 LV Perf. Quant 17 Seg. SSS2.00 17 Seg. SRS1.00 17 Seg. SDS1.00 Stress Defect Extent (% LAD)0.60Rest Defect Extent (% LAD)0.00Rev. Defect Extent (% LAD)0.60 Stress Defect Extent (% LCX)21.30Rest Defect Extent (% LCX)0.00Rev. Defect Extent (% LCX)18.80 Stress Defect Extent (% RCA)0.00Rest Defect Extent (% RCA)0.00Rev. Defect Extent (% RCA)0.00 Stress Defect Extent (% BLESSING)6.50Rest Defect Extent (% BLESSING)0.00Rev. Defect Extent (% BLESSING)6.10 Other Information Quality:Excellent IMPRESSION Normal Myocardial Perfusion exercise stress study Global LV Function: Normal Stress Test Summary: Normal LV Perfusion Summary: Normal Left Ventricle LV Size/Shape: The left ventricle is normal size. LV Thickness: There is normal left ventricular wall thickness. LV Function:Left ventricle systolic function is normal. The Ejection Fraction is 55-60%. Regional Wall Motion:No regional wall motion abnormalities noted. Metabolism/Perfusion There are no perfusion/metabolism defects. Conclusion 1. The stress and resting images show normal perfusion.
[2017-07-21] MEDS ORDERED: Pneumococcal 23-Valent Vaccine IM ONE (10:00)
== END 2017-07-19 13:21 | disposition home or self-care (01) | DRG 143 ==
LOC: C.ER 21:03 → C.9E 07-18 02:50 → C.6T 07-18 17:04
PROVIDERS: ADMIT Internal Medicine Pulmonary Disease; ATTEND Internal Medicine Pulmonary Disease
DX: R07.89 Other chest pain (principal); G47.30 Sleep apnea, unspecified; I10 Essential (primary) hypertension; J45.909 Unspecified asthma, uncomplicated; Z86.73 Personal history of transient ischemic attack (TIA), and cerebral infarction without residual deficits; Z87.891 Personal history of nicotine dependence

== ENCOUNTER 2017-07-22 18:08 | Emergency (ER) | payer OTHER ==
[2017-07-22 18:09] VITALS: BMI 34.7
[2017-07-22 19:50] LABS: HCG,QUALITATIVE URINE NEGATIVE (NEGATIVE)
[2017-07-22 19:51] LABS: SQUAMOUS EPITHIAL 1 /hpf (0-5); URINE BACTERIA OCC (<OCC); URINE BILIRUBIN NEGATIVE (NEGATIVE); URINE BLOOD 1+ (NEGATIVE); URINE CLARITY Clear (Clear); URINE COLOR Yellow (YELLOW); URINE GLUCOSE (UA) NORMAL (Normal); URINE LEUKOCYTE ESTERASE NEG Leu/uL (Negative); URINE NITRATE NEGATIVE (NEGATIVE); URINE PROTEIN NEGATIVE (NEGATIVE); URINE UROBILINOGEN NORMAL mg/dL (0.2-1.0)
[2017-07-22] MEDS ORDERED: Sodium Chloride 0.9% 1,000 ML IV ONE (21:16)
--- NOTE | 2017-07-22 21:18 | C.PDOC ---
Chief Complaint (Nursing): Abdominal Pain Past Medical History Vital Signs: Last Vital Signs Temp 98.5 F 07/22/17 19:08 Pulse 78 07/22/17 19:08 Resp 16 07/22/17 19:08 BP 126/85 07/22/17 19:08 Pulse Ox 98 07/22/17 19:08 - Medical History PMH: Anemia, Anxiety, Arthritis, Asthma, Back Problems, Diverticulitis, Fractures (R ankle, with hardware), Gastritis, HTN, Migraine, Sleep Apnea, TIA ( May 2017) Denies: HIV, Chronic Kidney Disease Surgical History: Cholecystectomy (?? or gallstones), Endoscopy - [facility] Procedures RADICAL EXCIS SKIN LES (08/18/14) Family History: States: Unknown Family Hx - Social History Hx Tobacco Use: Yes Hx Alcohol Use: Yes (socially) Hx Substance Use: No - Immunization History Hx Tetanus Toxoid Vaccination: No Hx Influenza Vaccination: Yes Hx Pneumococcal Vaccination: No ED Course And Treatment O2 Sat by Pulse Oximetry: 98 Disposition - Disposition
--- NOTE | 2017-07-22 21:23 | C.PDOC ---
History Of Present Illness 52 year old female with history of hypertension, gastritis, and TIA in May of this year for which she is taking Plavix, presents to the emergency department with complaints of right flank pain with associated 2 episodes of vaginal spotting. She states that the bleeding and pain started around 5:30pm today. Patient reports that she then had the urge to urinate frequently and after wiping noticed blood. Patient also reports associated fever, mild dysuria , and nausea. She denies vomiting. She has no other complaints. Time Seen by Provider: 07/22/17 21:10 Chief Complaint (Nursing): Abdominal Pain History Per: Patient History/Exam Limitations: no limitations Onset/Duration Of Symptoms: Hrs Current Symptoms Are (Timing): Still Present Location Of Pain/Discomfort: Other (right flank) Radiation Of Pain To:: Back, Flank Quality Of Discomfort: "Pain" Associated Symptoms: Urinary Symptoms Abnormal Vaginal Bleeding: No Last Menstral Period: 2 years ago Past Medical History Reviewed: Historical Data, Nursing Documentation, Vital Signs Vital Signs: Last Vital Signs Temp 97.9 F 07/22/17 23:13 Pulse 86 07/22/17 23:13 Resp 20 07/22/17 23:13 BP 112/73 07/22/17 23:13 Pulse Ox 100 07/22/17 23:13 - Medical History PMH: Anemia, Anxiety, Arthritis, Asthma, Back Problems, Diverticulitis, Fractures (R ankle, with hardware), Gastritis, HTN, Migraine, Sleep Apnea, TIA ( May 2017) Denies: HIV, Chronic Kidney Disease Surgical History: Cholecystectomy (?? or gallstones), Endoscopy - [facility] Procedures RADICAL EXCIS SKIN LES (08/18/14) Family History: States: Unknown Family Hx - Social History Hx Tobacco Use: Yes Hx Alcohol Use: Yes (socially) Hx Substance Use: No - Immunization History Hx Tetanus Toxoid Vaccination: No Hx Influenza Vaccination: Yes Hx Pneumococcal Vaccination: No Review Of Systems Except As Marked, All Systems Reviewed And Found Negative. Constitutional: Negative for: Fever, Chills Gastrointestinal: Positive for: Nausea, Abdominal Pain. Negative for: Vomiting , Diarrhea Genitourinary: Positive for: Dysuria, Frequency, Other (vaginal spotting). Negative for: Hematuria, Vaginal Discharge, Vaginal Bleeding Physical Exam - Physical Exam Appears: Non-toxic Skin: Normal Color, Warm, Dry Head: Normacephalic Eye(s): bilateral: Normal Inspection Neck: Normal ROM, Supple Chest: Symmetrical Cardiovascular: Rhythm Regular Respiratory: Normal Breath Sounds Gastrointestinal/Abdominal: Bowel Sounds, Soft, No Guarding, No Rebound Back: CVA Tenderness (right) Extremity: Normal ROM Neurological/Psych: Oriented x3, Normal Speech, Normal Cognition ED Course And Treatment - Laboratory Results Result Diagrams: 07/22/17 21:39 07/22/17 21:39 O2 Sat by Pulse Oximetry: 98 (RA) Pulse Ox Interpretation: Normal Medical Decision Making Medical Decision Making: Plan: -- Labs -- CT Abdomen w/o contrast -- Toradol 30mg IV -- Zofran 4mg IV -- IV Fluids Disposition - Disposition Referrals: [facility] [Outside] Disposition: HOME/ ROUTINE Disposition Time: 04:38 Condition: FAIR Prescriptions: Ciprofloxacin HCl [Cipro] 500 mg PO BID #20 tablet Instructions: Urinary Tract Infections in Adults Forms: [facility] (Slovenian) Print Language: CITIZEN OF [place] - Clinical Impression Clinical Impression: UTI (urinary tract infection) - Scribe Statement The provider has reviewed the documentation as recorded by the Scribe (Soledad Graham) Provider Attestation: All medical record entries made by the Scribe were at my direction and personally dictated by me. I have reviewed the chart and agree that the record accurately reflects my personal performance of the history, physical exam, medical decision making, and the department course for this patient. I have also personally directed, reviewed, and agree with the discharge instructions and disposition.
[2017-07-22] MEDS ORDERED: Sodium Chloride 0.9% 1,000 ML ONE (21:25)
[2017-07-22 21:44] LABS: BASO % 0.7 % (0.0-2.0); EOS # 0.2 K/uL (0.0-0.7); EOS % 3.2 % (0.0-4.0); LYMPH # 2.4 K/uL (1.0-4.3); LYMPH % 40.2 % (20.0-40.0); MEAN CELL VOLUME 74.7 fL (81.0-99.0); MEAN CORPUSCULAR HGB CONC 32.1 g/dL (33.0-37.0); MEAN PLATELET VOLUME 7.3 fL (7.2-11.7); MONO # 0.6 K/uL (0.0-0.8); MONO % 9.3 % (0.0-10.0); NEUT # 2.8 K/uL (1.8-7.0); NEUT % 46.6 % (50.0-75.0); NRBC % 0.3 % (0.0-2.0); RBC 4.58 Mil/uL (3.80-5.20); RED CELL DISTRIBUTION WIDTH 15.4 % (11.5-14.5); WHITE BLOOD COUNT 6.1 K/uL (4.8-10.8)
[2017-07-22 21:56] LABS: ALB/GLOB RATIO 1.2 (1.0-2.1); ALBUMIN 4.1 g/dL (3.5-5.0); ALT/SGPT 36 U/L (9-52); AST/SGOT 31 U/L (14-36); BLOOD UREA NITROGEN 13 mg/dL (7-17); CALCIUM 9.1 mg/dl (8.6-10.4); GFR AFRICAN-AMERICAN > 60; GFR NON-AFRICAN AMERICAN > 60; LIPASE 109 U/L (23-300)
--- NOTE | 2017-07-22 22:53 | CT ---
EXAM: CT Abdomen and Pelvis Without Intravenous Contrast CLINICAL HISTORY: 52 years old, female; Pain; Abdominal pain; Flank; Lower; Additional info: Flank pain TECHNIQUE: Axial computed tomography images of the abdomen and pelvis without intravenous contrast. All CT scans at this facility use one or more dose reduction techniques, viz.: automated exposure control; ma/kV adjustment per patient size (including targeted exams where dose is matched to indication; i.e. head); or iterative reconstruction technique. Coronal and sagittal reformatted images were created and reviewed. COMPARISON: No relevant prior studies available. FINDINGS: Limitations: Lack of intravenous contrast. Lower thorax: Moderate-sized hiatal hernia. ABDOMEN: Liver: Unremarkable. Gallbladder and bile ducts: Cholecystectomy. No significant ductal dilation. Pancreas: Unremarkable. No ductal dilation. Spleen: No splenomegaly. Adrenals: No mass. Kidneys and ureters: No renal calculi. No hydronephrosis. Stomach and bowel: Scattered diverticula within colon. No associated inflammatory stranding. No definite mural thickening. No obstruction. Appendix: Normal caliber. No inflammation. PELVIS: Bladder: Unremarkable. No stones. Reproductive: Retroverted uterus. Apparent 2.2 x 2.3 x 3.0 cm hypodense lesion within LEFT adnexal region. ABDOMEN and PELVIS: Intraperitoneal space: No significant fluid collection. No free air. Bones/joints: Mild degenerative changes of spine. Degenerative changes of pubic symphysis. No acute fracture. Soft tissues: Unremarkable. Vasculature: Few rounded calcifications within pelvis, likely phleboliths. No aneurysm. Lymph nodes: No pathologically enlarged lymph nodes. IMPRESSION: 1. No definite CT evidence of urolithiasis. 2. Adnexal lesion, indeterminate. Recommend ultrasound. 3. Diverticulosis without definite CT evidence of diverticulitis. 4. Incidental/non-acute findings are described above.
[2017-07-22 23:14] VITALS: BP 112/73; PULSE 86; RESP 20; TEMP 97.9
[2017-07-23 04:39] VITALS: O2SAT 98
== END 2017-07-22 23:21 | disposition home or self-care (01) ==
LOC: C.ER 18:08
DX: N39.0 Urinary tract infection, site not specified (principal)
CPT/HCPCS: 74176; 80053; 81001; 83690; 84703; 85025; 87086; 96361; 96374; 96375; 99284; J1885; J2405; J7040

== ENCOUNTER 2017-08-03 15:58 | Observation (INO) | payer OTHER ==
--- NOTE | 2017-08-03 16:14 | C.PDOC ---
History Of Present Illness 52 year old female, with PMHx of previous TIA, HTN, hyperlipidemia, presents to ED for evaluation of left sided arm and leg heaviness, and paraesthesia since 9: 00 this morning. Pt states she was seen by PMD today who referred her to ED for further evaluation. Pt states symptoms are now mild and resolving. Denies headache, dizziness, chest pain, shortness of breath, or any other complaints at this time. Time Seen by Provider: 08/03/17 16:00 Chief Complaint (Nursing): Weakness/Neurological Deficit History Per: Patient History/Exam Limitations: no limitations Onset/Duration Of Symptoms: Hrs Current Symptoms Are (Timing): Still Present Recent travel outside of the [place]: No Additional History Per: Patient Past Medical History Reviewed: Historical Data, Nursing Documentation, Vital Signs Vital Signs: Last Vital Signs Temp 98.3 F 08/03/17 16:07 Pulse 63 08/03/17 18:55 Resp 20 08/03/17 18:55 BP 117/81 08/03/17 18:55 Pulse Ox 98 08/03/17 18:55 - Medical History PMH: Anemia, Anxiety, Arthritis, Asthma, Back Problems, Diverticulitis, Fractures (R ankle, with hardware), Gastritis, Hiatal Hernia, HTN, Migraine, Sleep Apnea, TIA (May 2017) Denies: HIV, Chronic Kidney Disease Surgical History: Cholecystectomy (?? or gallstones), Endoscopy - [facility] Procedures RADICAL EXCIS SKIN LES (08/18/14) Family History: States: Unknown Family Hx - Social History Hx Tobacco Use: Yes Hx Alcohol Use: No (socially) Hx Substance Use: No - Immunization History Hx Tetanus Toxoid Vaccination: Yes Hx Influenza Vaccination: Yes Hx Pneumococcal Vaccination: Yes Review Of Systems Except As Marked, All Systems Reviewed And Found Negative. Constitutional: Negative for: Fever, Chills Cardiovascular: Negative for: Chest Pain, Palpitations Respiratory: Negative for: Cough, Shortness of Breath Neurological: Positive for: Other (left arm and leg heaviness and paraesthesia) . Negative for: Headache, Dizziness Physical Exam - Physical Exam Appears: Non-toxic, No Acute Distress Skin: Normal Color, Warm, Dry Head: Atraumatic, Normacephalic Eye(s): bilateral: Normal Inspection Oral Mucosa: Moist Neck: Normal ROM, Supple Chest: Symmetrical Cardiovascular: Rhythm Regular, No Murmur Respiratory: Normal Breath Sounds, No Rales, No Rhonchi, No Wheezing Gastrointestinal/Abdominal: Soft, No Tenderness Extremity: Normal ROM, No Deformity Neurological/Psych: Oriented x3, Normal Speech, Normal Cognition ED Course And Treatment - Laboratory Results Result Diagrams: 08/03/17 16:24 08/03/17 16:24 ECG: Interpreted By Me, Viewed By Me ECG Rhythm: Sinus Rhythm ECG Interpretation: No Acute Changes Interpretation Of ECG: No acute ST/T wave changes. Rate From EC (bpm) O2 Sat by Pulse Oximetry: 98 (RA) Pulse Ox Interpretation: Normal NIHSS Stroke Scale 2 - How Severe is the Stroke Level of Consciousness: 0=Alert LOC to Questions: 0=Both comments correct LOC to commands: 0=Obeys both correctly Best Gaze: 0=Normal Visual: 0=No visual loss Facial: 0=Normal Motor Arm - Left: 0=No drift Motor Arm - Right: 0=No drift Motor Leg - Left: 0=No drift Motor Leg - Right: 0=No drift Limb Ataxia: 0=Absent Sensory: 0=Normal Best Language: 0=No aphasia Dysarthia: 0=Normal articulation Extinction & Inattention (Neglect): 0=Normal, no object Score: 0 rTPA Inclusion/Exclusion - Refusal of Treatment Patient Refused Treatment: No - Inclusion Criteria for Altepase Patient is 18 years or Older: Yes The Clinical Diagnosis of Ischemic Stroke That is Causing a Potentially Disabling Neurological Deficit: No Time of Onset is Well Established to be Less Than 270 Minute Before Treatment Would Begin: Yes Risk/Benefit Discussed With Patient/Family Member Present: No Medical Decision Making Medical Decision Making: Blood work, CXR, EKG, CTA head/neck, head CT was ordered and reviewed. low nih, seen by anju gray. not tpa candidate request mri. dr hopkins accepts. Disposition - Disposition Disposition: HOSPITALIZED Disposition Time: 07:00 Condition: STABLE - Clinical Impression Clinical Impression: Numbness - Scribe Statement The provider has reviewed the documentation as recorded by the Sadieibabdiel Tolbert All medical record entries made by the Sadieibabdiel were at my direction and personally dictated by me. I have reviewed the chart and agree that the record accurately reflects my personal performance of the history, physical exam, medical decision making, and the department course for this patient. I have also personally directed, reviewed, and agree with the discharge instructions and disposition. Decision To Admit - Pt Status Changed To: Hospital Disposition Of: Observation - . Bed Request Type: Telemetry Admitting Physician: Marcella Hopkins Patient Diagnosis: Numbness
[2017-08-03 16:18] VITALS: BMI 32.8
[2017-08-03] MEDS ORDERED: Iodixanol 320 MG/ML 100 ML BOTTLE IV ONE (16:19)
[2017-08-03 16:27] LABS: BASO # 0.1 K/uL (0.0-0.2); BASO % 1.1 % (0.0-2.0); EOS # 0.2 K/uL (0.0-0.7); EOS % 2.8 % (0.0-4.0); HEMOGLOBIN 11.5 g/dL (11.0-16.0); LYMPH # 2.1 K/uL (1.0-4.3); LYMPH % 37.8 % (20.0-40.0); MEAN CELL VOLUME 74.6 fL (81.0-99.0); MEAN CORPUSCULAR HEMOGLOBIN 24.8 pg (27.0-31.0); MEAN CORPUSCULAR HGB CONC 33.2 g/dL (33.0-37.0); MEAN PLATELET VOLUME 7.3 fL (7.2-11.7); MONO # 0.4 K/uL (0.0-0.8); MONO % 8.2 % (0.0-10.0); NEUT # 2.7 K/uL (1.8-7.0); NEUT % 50.1 % (50.0-75.0); RBC 4.63 Mil/uL (3.80-5.20); RED CELL DISTRIBUTION WIDTH 15.3 % (11.5-14.5); WHITE BLOOD COUNT 5.4 K/uL (4.8-10.8)
[2017-08-03 16:35] LABS: INR 1.1
--- NOTE | 2017-08-03 16:38 | CT ---
PROCEDURE: CT HEAD WITHOUT CONTRAST. HISTORY: Code Stroke COMPARISON: None available. TECHNIQUE: Axial computed tomography images were obtained through the head/brain without intravenous contrast. Radiation dose: Total exam DLP = 977.39 mGy-cm. This CT exam was performed using one or more of the following dose reduction techniques: Automated exposure control, adjustment of the mA and/or kV according to patient size, and/or use of iterative reconstruction technique. FINDINGS: HEMORRHAGE: No intracranial hemorrhage. BRAIN: No mass effect or edema. Small calcification at the left vertex measures approximately 8 mm, possibly small calcified meningioma. This was evident on prior imaging. The maria-white matter differentiation appears intact. VENTRICLES: No hydrocephalus. CALVARIUM: Unremarkable. PARANASAL SINUSES: Unremarkable as visualized. No significant inflammatory changes. MASTOID AIR CELLS: Unremarkable as visualized. No inflammatory changes. OTHER FINDINGS: None. IMPRESSION: 3 mm calcification at the left vertex, possibly small calcified meningioma. No acute intracranial pathology identified. Please note that MRI with diffusion imaging is more sensitive in the detection of acute ischemic event. Findings discussed with Dr. Gibbs on 08/03/17 at 4:36 p.m.
[2017-08-03 16:46] LABS: ALB/GLOB RATIO 1.3 (1.0-2.1); ALBUMIN 4.6 g/dL (3.5-5.0); ALT/SGPT 57 U/L (9-52); AST/SGOT 50 U/L (14-36); BLOOD UREA NITROGEN 13 mg/dL (7-17); CALCIUM 9.4 mg/dl (8.6-10.4); GFR AFRICAN-AMERICAN > 60; GFR NON-AFRICAN AMERICAN > 60; HDL CHOLESTEROL 46 mg/dL (30-70)
[2017-08-03 16:57] LABS: LDL CHOLESTEROL 59 mg/dL (0-129)
--- NOTE | 2017-08-03 17:32 | RAD ---
HISTORY: Code Stroke COMPARISON: Chest x-ray performed 07/18/17 TECHNIQUE: Chest, one view. FINDINGS: Examination limited by habitus. LUNGS: No focal consolidation. Please note that chest x-ray has limited sensitivity for the detection of pulmonary masses. PLEURA: No significant pleural effusion identified. No definite pneumothorax . CARDIOVASCULAR: The cardiomediastinal silhouette appears within normal limits of size. OSSEOUS STRUCTURES: No acute osseous abnormality identified. VISUALIZED UPPER ABDOMEN: Unremarkable. OTHER FINDINGS: None. IMPRESSION: No focal consolidation, significant pleural effusion, or definite pneumothorax identified.
[2017-08-03] MEDS ORDERED: Home Med 1 UNIT (Ventolin Hfa 90 Mcg/Actuation (8 G) 1 PUFF) INH PRN (20:40)
[2017-08-03] MEDS ORDERED: FLUTICASONE PROPIONATE INH PRN (20:40)
[2017-08-03] MEDS ORDERED: Oxycodone/Acetaminophen 5/325 mg Tab ONE (20:47)
[2017-08-03] MEDS: Oxycodone/Acetaminophen 5/325 mg Tab PO PRN (20:48)
[2017-08-04] MEDS ORDERED: Simethicone 80 mg Chewtab PO STA (01:19)
[2017-08-04] MEDS ORDERED: NIFEdipine 90 mg ER Tab PO SCH (10:00)
[2017-08-04] MEDS ORDERED: RANITIDINE HCL PO SCH (10:00)
[2017-08-04] MEDS ORDERED: Pantoprazole 40 mg EC Tab PO SCH (10:00)
[2017-08-04] MEDS: Enoxaparin 40 mg Syringe SC SCH (10:13)
[2017-08-04] MEDS: NIFEdipine 90 mg ER Tab PO SCH (10:16)
[2017-08-04 14:35] LABS: CK-MB < 0.22 ng/mL (0.0-3.38)
[2017-08-04] MEDS: Oxycodone/Acetaminophen 5/325 mg Tab PO PRN (21:34)
[2017-08-05] MEDS ORDERED: Pneumococcal 23-Valent Vaccine IM ONE (10:00)
--- NOTE | 2017-08-05 10:40 | HP ---
HISTORY OF PRESENT ILLNESS: The patient is admitted to hospital with chief complaint of numbness, weakness, fatigue. Patient came to the ER, advised admission. Patient hypertension, history of chronic chest pain. PHYSICAL EXAMINATION: GENERAL: The patient is awake, alert, and oriented. VITAL SIGNS: Temperature 98, pulse 90. HEENT: Within normal limits. NECK: Supple. CHEST: Symmetrical. HEART: Regular. ABDOMEN: Soft. EXTREMITIES: No edema. IMPRESSION AND PLAN: The patient suffers . Patient bed rest, . Marcella Powell MD
--- NOTE | 2017-08-05 10:41 | CT ---
PROCEDURE: CT Angiography of the neck and brain dated 08/03/2017 HISTORY: Code stroke COMPARISON: Comparison made with CT scan of the brain 08/03/2017 TECHNIQUE: Contiguous helical/transaxial images of the neck were obtained from the level of the skull-base to the superior mediastinum in the arteriographic phase of enhancement. Coronal and sagittal reformats or also generated. IV contrast dose: 100 cc Visipaque 320 Radiation Dose - DLP: 615.42 mGy-cm This CT exam was performed using one or more of the following dose reduction techniques: Automated exposure control, adjustment of the mA and/or kV according to patient size, and/or use of iterative reconstruction technique. . FINDINGS: The visualized common carotid arteries, carotid bifurcations internal carotid artery is widely patent with no evidence of occlusion or significant stenosis. . The petrous, cavernous and supraclinoid segments of the internal carotid artery is also widely patent. . There is some minor asymmetry of the vertebral arteries left-sided which is larger in caliber/more dominant than the right-side up to represent an anatomic variation however no evidence of significant stenosis. Basilar artery also patent. The visualized major branches of the [place] heart appears patent with no evidence of large aneurysm nor vascular malformation. There is mild asymmetry of the A1 segments left-sided which is slightly larger in caliber than the right. The distal branches of the anterior middle and posterior cerebral arteries are relatively symmetric. Note is made of an enlarged heterogeneous thyroid gland which extends on the left side inferiorly into the upper mediastinum to the level of the clavicular head. Followup thyroid ultrasound recommended. There are multiple small nonspecific bilateral cervical lymph nodes. There is a small calcification in the left posterior superior parietal region adjacent to the interhemispheric fissure which could represent a dural based calcification however possibility of a small meningioma cannot be completely excluded. Mild degenerative spondylosis of the cervical spine with slight kyphotic angulation centered at the C5-C6 level. IMPRESSION: Unremarkable examination of the cervical arterial and intra cerebral circulation as described. Enlarged heterogeneous thyroid gland left greater than right with inferior extension of the left lobe to the level of the clavicular head. Thyroid ultrasound recommended. See above discussion for additional details and findings.
[2017-08-05] MEDS: Enoxaparin 40 mg Syringe SC SCH (10:51)
[2017-08-05] MEDS: NIFEdipine 90 mg ER Tab PO SCH (10:52)
--- NOTE | 2017-08-05 11:33 | CP.PCM.PN ---
Subjective - Date & Time of Evaluation Date of Evaluation: 08/05/17 Time of Evaluation: 09:15 - Subjective Subjective: PGY-[address] Powell Patient was seen and examined at bedside. No acute events reported overnight. Patient still complains of left sided numbness and heaviness. Patient is feeling anxious about MRI as she has a history of claustrophobia. She is requesting for medications to help her calm down during the procedure. Patient had a BM night last night. Patient denies headache, fever, chills, nausea, or vomiting. Objective - Vital Signs/Intake and Output Vital Signs (last 24 hours): Temp Pulse Resp BP Pulse Ox 97.9 F 71 20 95/66 L 99 08/05/17 08:45 08/05/17 10:55 08/05/17 10:55 08/05/17 10:55 08/05/17 08:45 Intake and Output: 08/05/17 08/05/17 06:59 18:59 Intake Total 10 Balance 10 - Medications Medications: Current Medications Aspirin (Aspirin) 325 mg PO DAILY [facility] Last Admin: 08/05/17 10:55 Dose: 325 mg Clopidogrel Bisulfate (Plavix) 75 mg PO DAILY [facility] Last Admin: 08/05/17 10:55 Dose: 75 mg Enoxaparin Sodium (Lovenox) 40 mg SC DAILY [facility] Last Admin: 08/05/17 10:51 Dose: 40 mg Famotidine (Pepcid) 20 mg PO BID [facility] Last Admin: 08/05/17 10:50 Dose: 20 mg Gabapentin (Neurontin) 100 mg PO BID [facility] Last Admin: 08/05/17 10:50 Dose: 100 mg Home Med (Fluticasone Propionate) 1 spray INH PRN PRN PRN Reason: Dry nasal passages Home Med (Ventolin Hfa 90 Mcg/Actuation (8 G)) 1 puff INH PRN PRN PRN Reason: Shortness of Breath Lactulose (Enulose) 20 gm PO DAILY [facility] Last Admin: 08/05/17 10:51 Dose: 20 gm Lorazepam (Ativan) 1 mg IM ONCE PRN PRN Reason: Anxiety Metoprolol Tartrate (Lopressor) 12.5 mg PO BID [facility] Last Admin: 08/05/17 10:52 Dose: Not Given Montelukast Sodium (Singulair) 10 mg PO DAILY [facility] Last Admin: 08/05/17 10:50 Dose: 10 mg Nifedipine (Procardia Xl) 90 mg PO DAILY [facility] Last Admin: 08/05/17 10:52 Dose: Not Given Oxycodone/Acetaminophen (Percocet 5/325 Mg Tab) 1 tab PO Q4H PRN PRN Reason: Pain, severe (8-10) Stop: 08/06/17 20:37 Last Admin: 08/04/17 21:34 Dose: 1 tab Rosuvastatin Calcium (Crestor) 10 mg PO HS [facility] Last Admin: 08/04/17 21:35 Dose: 10 mg - Labs Labs: 08/03/17 16:24 08/03/17 16:24 PT 12.0 SECONDS (9.7-12.2) 08/03/17 16:24 INR 1.1 08/03/17 16:24 APTT 35 SECONDS (21-34) H 08/03/17 16:24 - Constitutional Appears: Non-toxic, No Acute Distress - Head Exam Head Exam: ATRAUMATIC - Eye Exam Eye Exam: EOMI Pupil Exam: NORMAL ACCOMODATION - ENT Exam ENT Exam: Mucous Membranes Moist - Neck Exam Neck Exam: Full ROM - Respiratory Exam Respiratory Exam: Clear to Ausculation Bilateral, NORMAL BREATHING PATTERN. absent: Respiratory Distress - Cardiovascular Exam Cardiovascular Exam: REGULAR RHYTHM, +S1, +S2. absent: Murmur - GI/Abdominal Exam GI & Abdominal Exam: Soft, Normal Bowel Sounds. absent: Tenderness - Extremities Exam Extremities Exam: Normal Inspection - Neurological Exam Neurological Exam: Alert, Awake, Motor Sensory Deficit (Sensory function Right > left extremities ), Oriented x3 - Psychiatric Exam Psychiatric exam: Normal Affect, Normal Mood - Skin Skin Exam: Warm Assessment and Plan - Assessment and Plan (Free Text) Assessment: TIA -CT head, CT head and neck showed no acute intracranial pathology identified -Neurology Dr. Wick consulted -Coninue Aspirin, plavix, and crestor for secondary stroke prevention -Follow up Brain MRI, ativan to be given prior to MRI -Outpatient open MRI if patient unable to tolerate Palpitations -Telemetry, no recorded arrhythmias -Neurology recommended LINQ monitor, will be performed by Dr. Schaffer tomorrow HTN -Procardia 90mg po daily -Metoprolol 12.5mg bid Asthma -Ventolin PRN -Singulair 10mg po GERD -Pepcid Prophylactic measures -Pepcid -Lovenox Discussed case with attending Dr. Powell. All management per Dr. Powell.
--- NOTE | 2017-08-05 12:43 | CARD ---
APPROVED REPORT EKG Measurement Heart [id number] <Conclusion> Normal sinus rhythm Cannot rule out Anterior infarct, age undetermined Abnormal ECG
--- NOTE | 2017-08-05 13:38 | CP.PCM.CON ---
History of Present Illness - History of Present Illness History of Present Illness: Mrs. Yusuf is a 52-year-old woman with a past medical history of multiple TIAs , HTN, HLD, who presented after a prolonged episode of left side heaviness, numbness and pain peripherally. She states that prior to this episode, she had palpitations and anxiety. CT and CTA of the head/neck did not show any acute findings. So far, no arrhythmias were recorded on telemetry. Symptoms have resolved completely. She is on aspirin/plavix since her last TIA. Review of Systems - Review of Systems All systems: reviewed and no additional remarkable complaints except Past Patient History - Infectious Disease Hx of Infectious Diseases: None - Past Medical History & Family History Past Medical History?: Yes - Past Social History Smoking Status: Never Smoked - CARDIAC Hx Hypertension: Yes - PULMONARY Hx Asthma: Yes Hx Sleep Apnea: Yes - NEUROLOGICAL Hx Migraine: Yes Hx Transient Ischemic Attacks (TIA): Yes (May 2017) - HEENT Hx HEENT Problems: No - RENAL Hx Chronic Kidney Disease: No - ENDOCRINE/METABOLIC Hx Endocrine Disorders: No - HEMATOLOGICAL/ONCOLOGICAL Hx Anemia: Yes Hx Human Immunodeficiency Virus (HIV): No - INTEGUMENTARY Hx Dermatological Problems: No - MUSCULOSKELETAL/RHEUMATOLOGICAL Hx Arthritis: Yes Hx Fractures: Yes (R ankle, with hardware) - GASTROINTESTINAL Hx Diverticulitis: Yes Hx Gastritis: Yes - GENITOURINARY/GYNECOLOGICAL Hx Genitourinary Disorders: No - PSYCHIATRIC Hx Anxiety: Yes Hx Substance Use: No - SURGICAL HISTORY Hx Cholecystectomy: Yes (?? or gallstones) - ANESTHESIA Hx Anesthesia: Yes Hx Anesthesia Reactions: No Hx Malignant Hyperthermia: No Meds Allergies/Adverse Reactions: Allergies Allergy/AdvReac Type Severity Reaction Status Date / Time No Known Allergies Allergy Verified 08/03/17 16:06 - Medications Medications: Current Medications Aspirin (Aspirin) 325 mg PO DAILY [facility] Last Admin: 08/05/17 10:55 Dose: 325 mg Clopidogrel Bisulfate (Plavix) 75 mg PO DAILY [facility] Last Admin: 08/05/17 10:55 Dose: 75 mg Enoxaparin Sodium (Lovenox) 40 mg SC DAILY [facility] Last Admin: 08/05/17 10:51 Dose: 40 mg Famotidine (Pepcid) 20 mg PO BID [facility] Last Admin: 08/05/17 10:50 Dose: 20 mg Gabapentin (Neurontin) 100 mg PO BID [facility] Last Admin: 08/05/17 10:50 Dose: 100 mg Home Med (Fluticasone Propionate) 1 spray INH PRN PRN PRN Reason: Dry nasal passages Home Med (Ventolin Hfa 90 Mcg/Actuation (8 G)) 1 puff INH PRN PRN PRN Reason: Shortness of Breath Lactulose (Enulose) 20 gm PO DAILY [facility] Last Admin: 08/05/17 10:51 Dose: 20 gm Lorazepam (Ativan) 1 mg IM ONCE PRN PRN Reason: Anxiety Last Admin: 08/05/17 12:53 Dose: 1 mg Metoprolol Tartrate (Lopressor) 12.5 mg PO BID [facility] Last Admin: 08/05/17 10:52 Dose: Not Given Montelukast Sodium (Singulair) 10 mg PO DAILY [facility] Last Admin: 08/05/17 10:50 Dose: 10 mg Nifedipine (Procardia Xl) 90 mg PO DAILY [facility] Last Admin: 08/05/17 10:52 Dose: Not Given Oxycodone/Acetaminophen (Percocet 5/325 Mg Tab) 1 tab PO Q4H PRN PRN Reason: Pain, severe (8-10) Stop: 08/06/17 20:37 Last Admin: 08/04/17 21:34 Dose: 1 tab Rosuvastatin Calcium (Crestor) 10 mg PO HS [facility] Last Admin: 08/04/17 21:35 Dose: 10 mg Physical Exam - Neurological Exam Neurological exam: Alert, CN II-XII Intact, Normal Gait, Oriented x3, Reflexes Normal Additional comments: NIHSS = 0 Results - Vital Signs Recent Vital Signs: Last Vital Signs Temp 97.9 F 08/05/17 08:45 Pulse 71 08/05/17 10:55 Resp 20 08/05/17 10:55 BP 95/66 L 08/05/17 10:55 Pulse Ox 99 08/05/17 08:45 - Labs Result Diagrams: 08/03/17 16:24 08/03/17 16:24 Labs: Laboratory Results - last 24 hr 08/04/17 08/04/17 08/04/17 14:04 17:25 20:52 POC Glucose (mg/dL) 98 116 H Total Creatine Kinase 53 CK-MB (Mass) < 0.22 Troponin I < 0.0120 08/05/17 08/05/17 06:12 11:25 POC Glucose (mg/dL) 96 81 Total Creatine Kinase CK-MB (Mass) Troponin I Assessment & Plan (1) TIA (transient ischemic attack) Assessment and Plan: Continue aspirin 81, plavix 75, crestor for secondary stroke prevention. At this point, I would recommend implantation of a [employer] Linq device to determine if these episodes are caused by paroxysmal atrial fibrillation since the patient does complain of palpitations prior to the episodes. She should also undergo an MRI of the brain to determine if there have been other chronic infarcts. I have consulted Dr. Schaffer for the loop recorder and he may implant the device tomorrow morning. Thank you. Status: Acute Priority: High
--- NOTE | 2017-08-05 16:38 | CP.PCM.CON ---
History of Present Illness - History of Present Illness History of Present Illness: 52 yr old woman with pmh of dm, htn, and hyperlipidemia who started to have left arm "heaviness" at about 9:30 am this morning, with numbness and tinglilng , now resolved and back to baseline. Miss Recinos has had multiple presentationswith similar symptoms over the years. She has never had an MRI Brain done due to severe claustrophobia, and ct head has been negtive in the past. She came in as code stroke but her NIH score was 0, and she stated that her symptoms have resolved. Therefore she was not a TPA candidate. pmh/psh; as above. FH/SH: has 4 children. Works for [employer].NO tobacco, no etoh. all: nkda on exam: Normal neurolgical exam. Past Patient History - Infectious Disease Hx of Infectious Diseases: None - Past Medical History & Family History Past Medical History?: Yes - Past Social History Smoking Status: Never Smoked - CARDIAC Hx Hypertension: Yes - PULMONARY Hx Asthma: Yes Hx Sleep Apnea: Yes - NEUROLOGICAL Hx Migraine: Yes Hx Transient Ischemic Attacks (TIA): Yes (May 2017) - HEENT Hx HEENT Problems: No - RENAL Hx Chronic Kidney Disease: No - ENDOCRINE/METABOLIC Hx Endocrine Disorders: No - HEMATOLOGICAL/ONCOLOGICAL Hx Anemia: Yes Hx Human Immunodeficiency Virus (HIV): No - INTEGUMENTARY Hx Dermatological Problems: No - MUSCULOSKELETAL/RHEUMATOLOGICAL Hx Arthritis: Yes Hx Fractures: Yes (R ankle, with hardware) - GASTROINTESTINAL Hx Diverticulitis: Yes Hx Gastritis: Yes - GENITOURINARY/GYNECOLOGICAL Hx Genitourinary Disorders: No - PSYCHIATRIC Hx Anxiety: Yes Hx Substance Use: No - SURGICAL HISTORY Hx Cholecystectomy: Yes (?? or gallstones) - ANESTHESIA Hx Anesthesia: Yes Hx Anesthesia Reactions: No Hx Malignant Hyperthermia: No Meds Allergies/Adverse Reactions: Allergies Allergy/AdvReac Type Severity Reaction Status Date / Time No Known Allergies Allergy Verified 08/03/17 16:06 Results - Vital Signs Recent Vital Signs: Last Vital Signs Temp 98.3 F 08/03/17 16:07 Pulse 67 08/03/17 16:40 Resp 16 08/03/17 16:40 BP 144/70 08/03/17 16:40 Pulse Ox 98 08/03/17 18:26 - Labs Result Diagrams: 08/03/17 16:24 08/03/17 16:24 Labs: Laboratory Results - last 24 hr 08/03/17 08/03/17 08/03/17 16:04 16:22 16:24 WBC 5.4 RBC 4.63 Hgb 11.5 Hct 34.5 MCV 74.6 L MCH 24.8 L MCHC 33.2 RDW 15.3 H Plt Count 377 MPV 7.3 Neut % (Auto) 50.1 Lymph % (Auto) 37.8 Hyde % (Auto) 8.2 Eos % (Auto) 2.8 Baso % (Auto) 1.1 Neut # (Auto) 2.7 Lymph # (Auto) 2.1 Hyde # (Auto) 0.4 Eos # (Auto) 0.2 Baso # (Auto) 0.1 PT INR APTT Sodium Potassium Chloride Carbon Dioxide Anion Gap BUN Creatinine Est GFR ( Amer) Est GFR (Non-Af Amer) POC Glucose (mg/dL) 87 Random Glucose Calcium Total Bilirubin AST ALT Alkaline Phosphatase Troponin I Total Protein Albumin Globulin Albumin/Globulin Ratio Triglycerides Cholesterol LDL Cholesterol Direct HDL Cholesterol Blood Type O POSITIVE Antibody Screen Negative 08/03/17 08/03/17 16:24 16:24 WBC RBC Hgb Hct MCV MCH MCHC RDW Plt Count MPV Neut % (Auto) Lymph % (Auto) Hyde % (Auto) Eos % (Auto) Baso % (Auto) Neut # (Auto) Lymph # (Auto) Hyde # (Auto) Eos # (Auto) Baso # (Auto) PT 12.0 INR 1.1 APTT 35 H Sodium 145 Potassium 3.6 Chloride 105 Carbon Dioxide 26 Anion Gap 17 BUN 13 Creatinine 0.9 Est GFR ( Amer) > 60 Est GFR (Non-Af Amer) > 60 POC Glucose (mg/dL) Random Glucose 89 Calcium 9.4 Total Bilirubin 0.3 AST 50 H D ALT 57 H D Alkaline Phosphatase 99 Troponin I < 0.0120 Total Protein 8.2 Albumin 4.6 Globulin 3.6 Albumin/Globulin Ratio 1.3 Triglycerides 95 D Cholesterol 136 LDL Cholesterol Direct 59 HDL Cholesterol 46 Blood Type Antibody Screen Assessment & Plan - Assessment and Plan (Free Text) Assessment: 52 yr old woman with what appears to be tia but with no radiologic confirmation. Plan: 1. we will attempt to repeat MRI Brain 2. Stroke workup
[2017-08-05 17:10] VITALS: O2SAT 100
[2017-08-05] MEDS ORDERED: Albuterol HFA 90 mcg/actuation (8 g) INH PRN (20:00)
--- NOTE | 2017-08-05 20:22 | CARD ---
APPROVED REPORT EKG Measurement Heart [id number] <Conclusion> Normal sinus rhythm Normal ECG
[2017-08-05] MEDS: Oxycodone/Acetaminophen 5/325 mg Tab PO PRN (21:16)
[2017-08-05] MEDS: Fluticasone Nasal 50 mcg/Spray NAS SCH (21:55)
--- NOTE | 2017-08-05 23:05 | CP.PCM.CON ---
History of Present Illness - History of Present Illness History of Present Illness: Patient seen and evaluated Neurology requested LINQ monitoring LINQ to be inserted in am Past Patient History - Infectious Disease Hx of Infectious Diseases: None - Past Medical History & Family History Past Medical History?: Yes - Past Social History Smoking Status: Never Smoked - CARDIAC Hx Hypertension: Yes - PULMONARY Hx Asthma: Yes Hx Sleep Apnea: Yes - NEUROLOGICAL Hx Migraine: Yes Hx Transient Ischemic Attacks (TIA): Yes (May 2017) - HEENT Hx HEENT Problems: No - RENAL Hx Chronic Kidney Disease: No - ENDOCRINE/METABOLIC Hx Endocrine Disorders: No - HEMATOLOGICAL/ONCOLOGICAL Hx Anemia: Yes Hx Human Immunodeficiency Virus (HIV): No - INTEGUMENTARY Hx Dermatological Problems: No - MUSCULOSKELETAL/RHEUMATOLOGICAL Hx Arthritis: Yes Hx Fractures: Yes (R ankle, with hardware) - GASTROINTESTINAL Hx Diverticulitis: Yes Hx Gastritis: Yes - GENITOURINARY/GYNECOLOGICAL Hx Genitourinary Disorders: No - PSYCHIATRIC Hx Anxiety: Yes Hx Substance Use: No - SURGICAL HISTORY Hx Cholecystectomy: Yes (?? or gallstones) - ANESTHESIA Hx Anesthesia: Yes Hx Anesthesia Reactions: No Hx Malignant Hyperthermia: No Meds Allergies/Adverse Reactions: Allergies Allergy/AdvReac Type Severity Reaction Status Date / Time No Known Allergies Allergy Verified 08/03/17 16:06 - Medications Medications: Current Medications Albuterol (Ventolin Hfa 90 Mcg/Actuation (8 G)) 1 puff INH RQ6 PRN PRN Reason: Shortness of Breath Aspirin (Aspirin) 325 mg PO DAILY [facility] Last Admin: 08/05/17 10:55 Dose: 325 mg Clopidogrel Bisulfate (Plavix) 75 mg PO DAILY [facility] Last Admin: 08/05/17 10:55 Dose: 75 mg Enoxaparin Sodium (Lovenox) 40 mg SC DAILY [facility] Last Admin: 08/05/17 10:51 Dose: 40 mg Famotidine (Pepcid) 20 mg PO BID [facility] Last Admin: 08/05/17 17:50 Dose: 20 mg Fluticasone Propionate (Flonase) 1 spr JOSS DAILY [facility] Last Admin: 08/05/17 21:55 Dose: 1 spr Gabapentin (Neurontin) 100 mg PO BID [facility] Last Admin: 08/05/17 17:50 Dose: 100 mg Lactulose (Enulose) 20 gm PO DAILY [facility] Last Admin: 08/05/17 10:51 Dose: 20 gm Lorazepam (Ativan) 1 mg IM ONCE PRN PRN Reason: Anxiety Last Admin: 08/05/17 12:53 Dose: 1 mg Metoprolol Tartrate (Lopressor) 12.5 mg PO BID [facility] Last Admin: 08/05/17 17:54 Dose: 12.5 mg Montelukast Sodium (Singulair) 10 mg PO DAILY [facility] Last Admin: 08/05/17 10:50 Dose: 10 mg Nifedipine (Procardia Xl) 90 mg PO DAILY [facility] Last Admin: 08/05/17 10:52 Dose: Not Given Oxycodone/Acetaminophen (Percocet 5/325 Mg Tab) 1 tab PO Q4H PRN PRN Reason: Pain, severe (8-10) Stop: 08/06/17 20:37 Last Admin: 08/05/17 21:16 Dose: 1 tab Rosuvastatin Calcium (Crestor) 10 mg PO HS [facility] Last Admin: 08/05/17 21:16 Dose: 10 mg Results - Vital Signs Recent Vital Signs: Last Vital Signs Temp 97.9 F 08/05/17 15:00 Pulse 73 08/05/17 17:55 Resp 20 08/05/17 15:00 BP 112/77 08/05/17 17:55 Pulse Ox 100 08/05/17 15:00 - Labs Result Diagrams: 08/03/17 16:24 08/03/17 16:24 Labs: Laboratory Results - last 24 hr 08/05/17 08/05/17 08/05/17 06:12 11:25 16:09 POC Glucose (mg/dL) 96 81 87 08/05/17 20:59 POC Glucose (mg/dL) 88
[2017-08-06 07:21] LABS: BASO % 0.8 % (0.0-2.0); EOS # 0.2 K/uL (0.0-0.7); EOS % 4.1 % (0.0-4.0); HEMOGLOBIN 10.1 g/dL (11.0-16.0); LYMPH # 1.9 K/uL (1.0-4.3); MEAN CELL VOLUME 74.6 fL (81.0-99.0); MEAN CORPUSCULAR HEMOGLOBIN 24.2 pg (27.0-31.0); MEAN CORPUSCULAR HGB CONC 32.5 g/dL (33.0-37.0); MEAN PLATELET VOLUME 7.5 fL (7.2-11.7); MONO # 0.5 K/uL (0.0-0.8); MONO % 12.2 % (0.0-10.0); NEUT # 1.7 K/uL (1.8-7.0); NEUT % 38.9 % (50.0-75.0); NRBC % 0.2 % (0.0-2.0); RBC 4.16 Mil/uL (3.80-5.20); RED CELL DISTRIBUTION WIDTH 15.4 % (11.5-14.5); WHITE BLOOD COUNT 4.4 K/uL (4.8-10.8)
[2017-08-06 07:46] LABS: ALB/GLOB RATIO 1.1 (1.0-2.1); ALBUMIN 3.4 g/dL (3.5-5.0); ALT/SGPT 60 U/L (9-52); AST/SGOT 34 U/L (14-36); BLOOD UREA NITROGEN 18 mg/dL (7-17); CALCIUM 8.7 mg/dl (8.6-10.4); GFR AFRICAN-AMERICAN > 60; GFR NON-AFRICAN AMERICAN > 60
[2017-08-06] MEDS ORDERED: Lidocaine 2% Inj (20ml) ONE (08:08)
[2017-08-06 08:27] VITALS: TEMP 97.9
--- NOTE | 2017-08-06 08:40 | CP.PCM.PN ---
Subjective - Date & Time of Evaluation Date of Evaluation: 08/06/17 Time of Evaluation: 08:36 - Subjective Subjective: Covering for Dr Schaffer. Loop recorder implant due to multiple anticoagualtion intake of the patient. Will hold ASA, Plavix starting today and we will re-schedule on Saturday. Cont Lovenox 1 mg/kg body weight SQ daily and stop in (24hours before loop implant. Objective - Vital Signs/Intake and Output Vital Signs (last 24 hours): Temp Pulse Resp BP Pulse Ox 97.9 F 57 L 20 116/65 100 08/06/17 07:00 08/06/17 07:35 08/06/17 07:00 08/06/17 07:00 08/06/17 07:00 Intake and Output: 08/06/17 08/06/17 06:59 18:59 Intake Total 500 Balance 500 - Medications Medications: Current Medications Albuterol (Ventolin Hfa 90 Mcg/Actuation (8 G)) 1 puff INH RQ6 PRN PRN Reason: Shortness of Breath Enoxaparin Sodium (Lovenox) 40 mg SC DAILY [facility] Last Admin: 08/05/17 10:51 Dose: 40 mg Famotidine (Pepcid) 20 mg PO BID [facility] Last Admin: 08/05/17 17:50 Dose: 20 mg Fluticasone Propionate (Flonase) 1 spr JOSS DAILY [facility] Last Admin: 08/05/17 21:55 Dose: 1 spr Gabapentin (Neurontin) 100 mg PO BID [facility] Last Admin: 08/05/17 17:50 Dose: 100 mg Lactulose (Enulose) 20 gm PO DAILY [facility] Last Admin: 08/05/17 10:51 Dose: 20 gm Lorazepam (Ativan) 1 mg IM ONCE PRN PRN Reason: Anxiety Last Admin: 08/05/17 12:53 Dose: 1 mg Metoprolol Tartrate (Lopressor) 12.5 mg PO BID [facility] Last Admin: 08/05/17 17:54 Dose: 12.5 mg Montelukast Sodium (Singulair) 10 mg PO DAILY [facility] Last Admin: 08/05/17 10:50 Dose: 10 mg Nifedipine (Procardia Xl) 90 mg PO DAILY [facility] Last Admin: 08/05/17 10:52 Dose: Not Given Oxycodone/Acetaminophen (Percocet 5/325 Mg Tab) 1 tab PO Q4H PRN PRN Reason: Pain, severe (8-10) Stop: 08/06/17 20:37 Last Admin: 08/05/17 21:16 Dose: 1 tab Rosuvastatin Calcium (Crestor) 10 mg PO HS [facility] Last Admin: 08/05/17 21:16 Dose: 10 mg - Labs Labs: 08/06/17 07:09 08/06/17 07:09 PT 12.0 SECONDS (9.7-12.2) 08/03/17 16:24 INR 1.1 08/03/17 16:24 APTT 35 SECONDS (21-34) H 08/03/17 16:24 - Constitutional Appears: Non-toxic - Head Exam Head Exam: NORMAL INSPECTION - Eye Exam Eye Exam: absent: Scleral icterus - ENT Exam ENT Exam: Mucous Membranes Dry - Neck Exam Neck Exam: Full ROM - Respiratory Exam Respiratory Exam: NORMAL BREATHING PATTERN - Cardiovascular Exam Cardiovascular Exam: REGULAR RHYTHM - GI/Abdominal Exam GI & Abdominal Exam: Soft. absent: Tenderness - Exam External exam: NORMAL EXTERNAL EXAM - Neurological Exam Neurological Exam: Alert, Oriented x3 Assessment and Plan - Assessment and Plan (Free Text) Assessment: Recurrent palpitations TIA Plan: See above as plan. Case discussed w/ Dr Schaffer.
[2017-08-06] MEDS: Enoxaparin 40 mg Syringe SC SCH (10:10)
[2017-08-06] MEDS: Fluticasone Nasal 50 mcg/Spray NAS SCH (10:19)
[2017-08-06] MEDS: NIFEdipine 90 mg ER Tab PO SCH (10:34)
[2017-08-06 10:36] VITALS: BP 111/75; PULSE 20; RESP 71
--- NOTE | 2017-08-06 11:34 | CP.PCM.PN ---
Subjective - Date & Time of Evaluation Date of Evaluation: 08/06/17 Time of Evaluation: 09:05 - Subjective Subjective: Medicine progress note for Dr. Powell's service Patient seen and examined. Patient did not have loop recorder placed today due to risk of bleeding associated with daily aspirin and plavix. 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 Waggoner, and see if he thinks she will require loop recorder placement as outpatient. Patient admits to anxiety related to being at home alone. Patient states she has dull ache under her left breast that has been persistent for many months. She states she has had multiple stress tests as outpatient with normal result. Patient states she was supposed to have outpatient mammogram today but missed appointment due to inpatient hospitalization. Patient could not tolerate MRI yesterday due to claustrophobia. Objective - Vital Signs/Intake and Output Vital Signs (last 24 hours): Temp Pulse Resp BP Pulse Ox 97.9 F 20 L 71 H 111/75 100 08/06/17 07:00 08/06/17 10:35 08/06/17 10:35 08/06/17 10:35 08/06/17 07:00 Intake and Output: 08/06/17 08/06/17 06:59 18:59 Intake Total 500 Balance 500 - Medications Medications: Current Medications Albuterol (Ventolin Hfa 90 Mcg/Actuation (8 G)) 1 puff INH RQ6 PRN PRN Reason: Shortness of Breath Aspirin (Aspirin Chewable) 81 mg PO DAILY [facility] Clopidogrel Bisulfate (Plavix) 75 mg PO DAILY [facility] Enoxaparin Sodium (Lovenox) 40 mg SC DAILY [facility] Last Admin: 08/06/17 10:10 Dose: 40 mg Famotidine (Pepcid) 20 mg PO BID [facility] Last Admin: 08/06/17 10:09 Dose: 20 mg Fluticasone Propionate (Flonase) 1 spr JOSS DAILY [facility] Last Admin: 08/06/17 10:19 Dose: 1 spr Gabapentin (Neurontin) 100 mg PO BID [facility] Last Admin: 08/06/17 10:09 Dose: 100 mg Lactulose (Enulose) 20 gm PO DAILY [facility] Last Admin: 08/06/17 10:20 Dose: Not Given Lorazepam (Ativan) 1 mg IM ONCE PRN PRN Reason: Anxiety Last Admin: 08/05/17 12:53 Dose: 1 mg Metoprolol Tartrate (Lopressor) 12.5 mg PO BID [facility] Last Admin: 08/06/17 10:33 Dose: 12.5 mg Montelukast Sodium (Singulair) 10 mg PO DAILY [facility] Last Admin: 08/06/17 10:09 Dose: 10 mg Nifedipine (Procardia Xl) 90 mg PO DAILY [facility] Last Admin: 08/06/17 10:34 Dose: 90 mg Oxycodone/Acetaminophen (Percocet 5/325 Mg Tab) 1 tab PO Q4H PRN PRN Reason: Pain, severe (8-10) Stop: 08/06/17 20:37 Last Admin: 08/05/17 21:16 Dose: 1 tab Rosuvastatin Calcium (Crestor) 10 mg PO HS [facility] Last Admin: 08/05/17 21:16 Dose: 10 mg - Labs Labs: 08/06/17 07:09 08/06/17 07:09 PT 12.0 SECONDS (9.7-12.2) 08/03/17 16:24 INR 1.1 08/03/17 16:24 APTT 35 SECONDS (21-34) H 08/03/17 16:24 - Constitutional Appears: Non-toxic, No Acute Distress - Head Exam Head Exam: ATRAUMATIC, NORMOCEPHALIC - Eye Exam Eye Exam: EOMI - ENT Exam ENT Exam: Mucous Membranes Moist - Respiratory Exam Respiratory Exam: Clear to Ausculation Bilateral, NORMAL BREATHING PATTERN. absent: Chest Wall Tenderness - Cardiovascular Exam Cardiovascular Exam: REGULAR RHYTHM, +S1, +S2. absent: Tachycardia, Irregular Rhythm, Murmur - GI/Abdominal Exam GI & Abdominal Exam: Soft, Normal Bowel Sounds. absent: Tenderness - Neurological Exam Neurological Exam: Alert, Awake, CN II-XII Intact, Oriented x3 Neuro motor strength exam: Left Upper Extremity: 5, Right Upper Extremity: 5, Left Lower Extremity: 5, Right Lower Extremity: 5 Additional comments: intact and equal sensation bilateral upper and lower extremities - Psychiatric Exam Psychiatric exam: Normal Affect - Skin Skin Exam: Warm Assessment and Plan - Assessment and Plan (Free Text) Assessment: Left leg weakness -CT head, CT head and neck showed no acute intracranial pathology identified -Neurology Dr. Wick consulted -Dr. Wick recommending loop recorder to rule out possibility of paroxysmal atrial fibrillation. Patient could not have procedure done today due to her being on aspirin and plavix. Discussed with patient that she should see her outpatient head start assistant teacher, Dr. Waggoner, to discuss this procedure and pursue as outpatient -Coninue Aspirin, plavix, and crestor for secondary stroke prevention -Outpatient open MRI as patient unable to tolerate due to claustrophobia, despite pre-medication with ativan Palpitations -Telemetry, no recorded arrhythmias -Neurology recommended LINQ monitor, will be performed by Dr. Schaffer tomorrow HTN -Procardia 90mg po daily -Metoprolol 12.5mg bid Asthma -Ventolin PRN -Singulair 10mg po GERD -Pepcid Prophylactic measures -Pepcid -Lovenox Case discussed in detail with attending Dr. Powell. All management per Dr. Powell. Patient is stable for discharge home per Dr. Powell. Patient is to follow up with PMD Dr. Powell and cardiology Dr. Waggoner within 1 week of hospital discharge. Patient will obtain a script for an open-MRI after evaluated by PMD. Patient will follow up as outpatient for further cardiac workup if indicated. Patient to follow up with neurologist Dr. Wick as outpatient. Patient is to resume home medications on discharge. Plan discussed with patient during rounds.
[2017-08-06] MEDS: Oxycodone/Acetaminophen 5/325 mg Tab PO PRN (12:32)
== END 2017-08-06 14:05 | disposition home or self-care (01) ==
LOC: C.ER 15:58 → C.9E 17:15 → C.6T 22:16
PROVIDERS: ADMIT Internal Medicine Pulmonary Disease; ATTEND Internal Medicine Pulmonary Disease
DX: G45.9 Transient cerebral ischemic attack, unspecified (principal); E78.5 Hyperlipidemia, unspecified; E11.9 Type 2 diabetes mellitus without complications; F40.240 Claustrophobia; G47.30 Sleep apnea, unspecified; I10 Essential (primary) hypertension; J45.909 Unspecified asthma, uncomplicated; Z87.891 Personal history of nicotine dependence
CPT/HCPCS: 36415; 70450; 70496; 70498; 71045; 80053; 80061; 82948; 83036; 84484; 85025; 85610; 85730; 86850; 86900; 93005; 97116; 97162; 99285; G0378; G8978; G8979; J1650; J2060; Q9967

== ENCOUNTER 2017-08-18 13:01 | Emergency (ER) | payer OTHER ==
[2017-08-18 13:01] VITALS: BMI 32.8
[2017-08-18 13:10] VITALS: TEMP 97.9; O2SAT 100
[2017-08-18] MEDS ORDERED: Albuterol 0.083% Inhal Sol (2.5 mg/3 mL) UD IH STA (13:42)
[2017-08-18 13:58] LABS: BASO % 0.5 % (0.0-2.0); EOS # 0.2 K/uL (0.0-0.7); EOS % 4.4 % (0.0-4.0); HEMOGLOBIN 11.1 g/dL (11.0-16.0); LYMPH # 1.6 K/uL (1.0-4.3); LYMPH % 45.9 % (20.0-40.0); MEAN CORPUSCULAR HEMOGLOBIN 24.2 pg (27.0-31.0); MEAN CORPUSCULAR HGB CONC 32.7 g/dL (33.0-37.0); MEAN PLATELET VOLUME 7.1 fL (7.2-11.7); MONO # 0.3 K/uL (0.0-0.8); MONO % 8.8 % (0.0-10.0); NEUT # 1.4 K/uL (1.8-7.0); NEUT % 40.4 % (50.0-75.0); NRBC % 0.1 % (0.0-2.0); RBC 4.58 Mil/uL (3.80-5.20); RED CELL DISTRIBUTION WIDTH 15.3 % (11.5-14.5); WHITE BLOOD COUNT 3.5 K/uL (4.8-10.8)
[2017-08-18 14:13] LABS: ALB/GLOB RATIO 1.1 (1.0-2.1); ALBUMIN 4.3 g/dL (3.5-5.0); ALT/SGPT 44 U/L (9-52); AST/SGOT 25 U/L (14-36); BLOOD UREA NITROGEN 9 mg/dL (7-17); CALCIUM 9.2 mg/dl (8.6-10.4); GFR AFRICAN-AMERICAN > 60; GFR NON-AFRICAN AMERICAN > 60
[2017-08-18 14:22] LABS: CK-MB < 0.22 ng/mL (0.0-3.38)
--- NOTE | 2017-08-18 14:31 | RAD ---
PROCEDURE: CHEST RADIOGRAPH, 1 VIEW HISTORY: Shortness of breath, chest pain COMPARISON: 08/03/2017. FINDINGS: LUNGS: The lungs are well inflated and clear. PLEURA: No pneumothorax or pleural fluid seen. CARDIOVASCULAR: Normal. OSSEOUS STRUCTURES: No significant abnormalities. VISUALIZED UPPER ABDOMEN: Normal. OTHER FINDINGS: None. IMPRESSION: No active pulmonary disease.
[2017-08-18] MEDS ORDERED: Albuterol 0.083% Inhal Sol (2.5 mg/3 mL) UD ONE (14:36)
[2017-08-18] MEDS ORDERED: MethylPREDNISolone 40 mg Vial ONE (14:37)
--- NOTE | 2017-08-18 15:20 | C.PDOC ---
History Of Present Illness Patient presents to ED c/o chest pressure sensation since yesterday. Pain is nonradiating, nonpleuritic, constant and associated with mild nonproductive cough. She denies fever, abdominal pain, nausea/vomiting/diarrhea, palpitations. Patient also c/o right shoulder pain worse with movement, states it is due to arthritis; typically relieved with steroids given to her by PMD. PMHx of HTN, TIA, anxiety, asthma, arthritis, gastritis, hiatal hernia. 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 Laurel Vazquez, had normal echo and stress tests done in Jun 2017. Time Seen by Provider: 08/18/17 13:20 Chief Complaint (Nursing): Cough, Cold, Congestion History Per: Patient History/Exam Limitations: no limitations Onset/Duration Of Symptoms: Days (2) Current Symptoms Are (Timing): Still Present Severity: Mild Quality: Pressure, "Pain" Exacerbating Factors: denies: Turning, Movement, Deep Breathing, Exertion Past Medical History Reviewed: Historical Data, Nursing Documentation, Vital Signs Vital Signs: Last Vital Signs Temp 97.9 F 08/18/17 13:05 Pulse 72 08/18/17 16:56 Resp 18 08/18/17 16:56 BP 117/77 08/18/17 16:56 Pulse Ox 100 08/18/17 16:56 - Medical History PMH: Anemia, Anxiety, Arthritis, Asthma, Back Problems, Diverticulitis, Fractures (R ankle, with hardware), Gastritis, Hiatal Hernia, HTN, Migraine, Sleep Apnea, TIA (May 2017) Surgical History: Cholecystectomy (?? or gallstones), Endoscopy - [facility] Procedures RADICAL EXCIS SKIN LES (08/18/14) Family History: States: No Known Family Hx - Social History Hx Tobacco Use: Yes Hx Alcohol Use: No (socially) Hx Substance Use: No - Immunization History Hx Tetanus Toxoid Vaccination: Yes Hx Influenza Vaccination: Yes Hx Pneumococcal Vaccination: Yes Review Of Systems Except As Marked, All Systems Reviewed And Found Negative. Constitutional: Negative for: Fever, Chills Cardiovascular: Positive for: Chest Pain. Negative for: Palpitations Respiratory: Positive for: Cough, Shortness of Breath (mild) Gastrointestinal: Positive for: Constipation. Negative for: Nausea, Vomiting, Abdominal Pain, Diarrhea Genitourinary: Negative for: Dysuria, Hematuria Skin: Negative for: Rash Physical Exam - Physical Exam Appears: Well, Non-toxic, No Acute Distress Head: Normacephalic Oral Mucosa: Moist Cardiovascular: Rhythm Regular Respiratory: Normal Breath Sounds, No Rales, No Rhonchi, No Wheezing Gastrointestinal/Abdominal: Normal Exam, Bowel Sounds, Soft, No Tenderness Extremity: Normal ROM, No Pedal Edema, No Calf Tenderness Pulses: Left Dorsalis Pedis: Normal, Right Dorsalis Pedis: Normal Neurological/Psych: Oriented x3 ED Course And Treatment - Laboratory Results Result Diagrams: 08/18/17 13:55 08/18/17 13:55 ECG: Interpreted By Me, Viewed By Me (SR 61 bpm, 1st degree AB block, left axis deviation, no acute ST/T wave changes - unchanged from prior EKG 08/04/17) ECG Interpretation: No Acute Changes O2 Sat by Pulse Oximetry: 100 (RA) Pulse Ox Interpretation: Normal - Radiology CXR: Interpreted by Me, Viewed By Me CXR Interpretation: Yes: No Acute Disease. No: Infiltrates Progress Note: Blood work, CXR, EKG ordered and reviewed. Patient given IV solumedrol (right shoulder pain/arthritis) and albuterol neb treatment (h/o asthma). Reevaluation Time: 16:45 Reassessment Condition: Improved (On reassessment, patient is resting comfortably and states she feels better. On exam, she has good air entry B/L without wheezing or accessory muslce use. Blood work WNL, including KELLY x 2, and patient had recent normal cardiac workup. Do not suspect cardiac etiology for pain, and patient is comfortable being discharged home. She was instructed to follow up with PMD in 1-2 days, and understands she should return to ED if symptoms worsen.) Disposition Counseled Patient/Family Regarding: Studies Performed, Diagnosis, Need For Followup - Disposition Referrals: Marcella Powell MD [Staff Provider] - Josie Vazquez MD [Staff Provider] - Disposition: HOME/ ROUTINE Disposition Time: 16:45 Condition: STABLE Additional Instructions: FOLLOW UP WITH YOUR DOCTOR IN 1-2 DAYS RETURN TO ER IF YOU HAVE ANY CONCERNING SYMPTOMS Instructions: Chest Pain That Is Not Caused by the Heart (DC) Forms: [employer] (Icelandic) Print Language: TAJIK - Clinical Impression Clinical Impression: Non-cardiac chest pain
[2017-08-18 16:31] LABS: CK-MB < 0.22 ng/mL (0.0-3.38)
[2017-08-18 16:57] VITALS: BP 117/77; PULSE 72; RESP 18
--- NOTE | 2017-08-19 23:31 | CARD ---
APPROVED REPORT EKG Measurement Heart [id number] TN [id number] <Conclusion> Sinus rhythm with 1st degree AV block Cannot rule out Anterior infarct, age undetermined Abnormal ECG
== END 2017-08-18 16:56 | disposition home or self-care (01) ==
LOC: C.ER 13:01
DX: R07.89 Other chest pain (principal)
CPT/HCPCS: 71045; 80053; 82550; 82553; 84484; 85025; 93005; 96374; 96375; 99284; J1885; J2930

== ENCOUNTER 2017-08-29 14:53 | Emergency (ER) | payer OTHER ==
[2017-08-29 15:33] VITALS: BMI 33.0
[2017-08-29 15:38] VITALS: RESP 18; TEMP 98.2; O2SAT 100
[2017-08-29 16:15] LABS: HCG,QUALITATIVE URINE NEGATIVE (NEGATIVE); SQUAMOUS EPITHIAL 1 /hpf (0-5); URINE BILIRUBIN NEGATIVE (NEGATIVE); URINE BLOOD NEGATIVE (NEGATIVE); URINE CLARITY Clear (Clear); URINE COLOR Yellow (YELLOW); URINE GLUCOSE (UA) NORMAL (Normal); URINE LEUKOCYTE ESTERASE NEG Leu/uL (Negative); URINE PROTEIN NEGATIVE (NEGATIVE); URINE UROBILINOGEN NORMAL mg/dL (0.2-1.0)
[2017-08-29 16:21] LABS: BASO % 0.8 % (0.0-2.0); EOS # 0.1 K/uL (0.0-0.7); EOS % 2.2 % (0.0-4.0); HEMOGLOBIN 10.3 g/dL (11.0-16.0); LYMPH # 1.9 K/uL (1.0-4.3); LYMPH % 33.8 % (20.0-40.0); MEAN CELL VOLUME 75.1 fL (81.0-99.0); MEAN CORPUSCULAR HEMOGLOBIN 24.3 pg (27.0-31.0); MEAN CORPUSCULAR HGB CONC 32.3 g/dL (33.0-37.0); MEAN PLATELET VOLUME 7.5 fL (7.2-11.7); MONO # 0.5 K/uL (0.0-0.8); MONO % 8.6 % (0.0-10.0); NEUT # 3.1 K/uL (1.8-7.0); NEUT % 54.6 % (50.0-75.0); NRBC % 0.1 % (0.0-2.0); RBC 4.25 Mil/uL (3.80-5.20); RED CELL DISTRIBUTION WIDTH 15.1 % (11.5-14.5); WHITE BLOOD COUNT 5.8 K/uL (4.8-10.8)
[2017-08-29 16:31] LABS: ALB/GLOB RATIO 1.1 (1.0-2.1); ALT/SGPT 47 U/L (9-52); AST/SGOT 31 U/L (14-36); BLOOD UREA NITROGEN 13 mg/dL (7-17); CALCIUM 8.8 mg/dl (8.6-10.4); GFR AFRICAN-AMERICAN > 60; GFR NON-AFRICAN AMERICAN > 60
--- NOTE | 2017-08-29 16:32 | RAD ---
PROCEDURE: CHEST RADIOGRAPH, 1 VIEW HISTORY: Left-sided chest pain COMPARISON: 08/18/2017. FINDINGS: LUNGS: The lungs are well inflated and clear. PLEURA: No pneumothorax or pleural fluid seen. CARDIOVASCULAR: Normal. OSSEOUS STRUCTURES: No significant abnormalities. VISUALIZED UPPER ABDOMEN: Normal. OTHER FINDINGS: None. IMPRESSION: No active pulmonary disease.
[2017-08-29 16:49] LABS: CK-MB < 0.22 ng/mL (0.0-3.38)
[2017-08-29 17:31] VITALS: BP 110/76; PULSE 62
[2017-08-29] MEDS ORDERED: Iodixanol 320 MG/ML 100 ML BOTTLE IV ONE (17:37)
--- NOTE | 2017-08-29 17:43 | C.PDOC ---
History Of Present Illness 52 y/o female presents to the ER complaining of left-sided chest pain which started today. Patient describes the pain as "pain behind the breast" and it is sharp and worsening with deep breaths. Patient has been seen previously in ED and by PMD for similar symptoms. Patient is also complaining of lower bilateral back pain. She states she took Tylenol for pain without significant relief. She reports that her diastolic BP was high at home (90s), which concerned her so she decided to come to the ER. Patient denies fever, SOB, cough, abdominal pain, nausea/vomiting/diarrhea, dysuria/hematuria. Time Seen by Provider: 08/29/17 15:22 Chief Complaint (Nursing): Chest Pain History Per: Patient History/Exam Limitations: no limitations Onset/Duration Of Symptoms: Days Current Symptoms Are (Timing): Still Present Quality: Sharp Past Medical History Reviewed: Historical Data, Nursing Documentation, Vital Signs Vital Signs: Last Vital Signs Temp 98.2 F 08/29/17 15:33 Pulse 62 08/29/17 17:30 Resp 18 08/29/17 17:30 BP 110/76 08/29/17 17:30 Pulse Ox 100 08/31/17 12:02 - Medical History PMH: Anemia, Anxiety, Arthritis, Asthma, Back Problems, Diverticulitis, Fractures (R ankle, with hardware), Gastritis, Hiatal Hernia, HTN, Hypercholesterolemia, Migraine, Sleep Apnea, TIA (May 2017) Surgical History: Cholecystectomy (?? or gallstones), Endoscopy - [facility] Procedures RADICAL EXCIS SKIN LES (08/18/14) Family History: States: No Known Family Hx - Social History Hx Tobacco Use: Yes Hx Alcohol Use: No (socially) Hx Substance Use: No - Immunization History Hx Tetanus Toxoid Vaccination: Yes Hx Influenza Vaccination: No (2017) Hx Pneumococcal Vaccination: Yes Review Of Systems Except As Marked, All Systems Reviewed And Found Negative. Constitutional: Negative for: Fever, Chills Cardiovascular: Positive for: Chest Pain. Negative for: Palpitations Respiratory: Positive for: Pleuritic Pain. Negative for: Shortness of Breath, SOB with Excertion Gastrointestinal: Negative for: Nausea, Vomiting, Abdominal Pain, Diarrhea Genitourinary: Negative for: Dysuria, Hematuria Musculoskeletal: Positive for: Back Pain Physical Exam - Physical Exam Appears: Well, Non-toxic, No Acute Distress Skin: Normal Color, Warm Head: Normacephalic Eye(s): bilateral: Normal Inspection Oral Mucosa: Moist Throat: Normal, No Erythema, No Exudate Neck: Supple Lymphatic: No Adenopathy Cardiovascular: Rhythm Regular Respiratory: Normal Breath Sounds, No Rales, No Rhonchi, No Wheezing Gastrointestinal/Abdominal: Normal Exam, Bowel Sounds, Soft, No Tenderness Back: Normal Inspection, No CVA Tenderness, No Vertebral Tenderness, No Paraspinal Tenderness Extremity: Normal ROM, No Pedal Edema, No Calf Tenderness Neurological/Psych: Oriented x3 ED Course And Treatment - Laboratory Results Result Diagrams: 08/29/17 16:16 08/29/17 16:16 ECG: Interpreted By Me, Viewed By Me (sinus bradycardia 58 bpm, first degree AV block, left axis deviation, no acute ST/T wave changes) ECG Interpretation: No Acute Changes O2 Sat by Pulse Oximetry: 100 (RA) Pulse Ox Interpretation: Normal - Other Rad CXR X-Ray: Viewed By Me, Read By Radiologist Interpretation: Accession No. : [id number]. Patient Name / ID : HUSSEIN FRANCIS / [id number]. Exam Date : 08/29/2017 15:51:02 ( Approved ). Study Comment : Sex / Age : F / 52Y. Creator : Kasandra Burnett MD. Dictator : Kasandra Burnett MD. Small Arms Artillery Repairer : Aeronautical Engineering Technologist : Kasandra Burnett MD. Approver2 : Report Date : 08/29/2017 16:30:52. My Comment : . PROCEDURE: CHEST RADIOGRAPH, 1 VIEW. HISTORY: Left-sided chest pain. COMPARISON: . FINDINGS: LUNGS: The lungs are well inflated and clear. PLEURA: No pneumothorax or pleural fluid seen. CARDIOVASCULAR: Normal. OSSEOUS STRUCTURES: No significant abnormalities. VISUALIZED UPPER ABDOMEN: Normal. OTHER FINDINGS: None. IMPRESSION: No active pulmonary disease. - CT Scan/US CT-Chest Other Rad Studies (CT/US): Read By Radiologist, Radiology Report Reviewed CT/US Interpretation: PROCEDURE: CT Chest with contrast (Pulmonary Angiogram). HISTORY: elevated d-dimer, chest pain left side, r/o PE. COMPARISON: None available. TECHNIQUE: Axial computed tomography images were obtained of the chest in the pulmonary arterial phase of enhancement. Coronal and sagittal reformatted images were created and reviewed. Intravenous contrast dose: 100 cc Visipaque 320. Mean Hounsfield unit values in the main pulmonary artery: 208.82. Radiation dose: Total exam DLP = 543.41 mGy-cm. This CT exam was performed using one or more of the following dose reduction techniques: Automated exposure control, adjustment of the mA and/or kV according to patient size, and/or use of iterative reconstruction technique. FINDINGS: PULMONARY ARTERIES: Dilated main pulmonary artery consistent with pulmonary arterial hypertension. . No pulmonary embolism. AORTA: No acute findings. No thoracic aortic aneurysm. LUNGS: Subsegmental infiltrate as ago esophageal recess region right lower lobe. PLEURAL SPACES: Unremarkable. No effusion or pneuomothorax. HEART: Unremarkable. No cardiomegaly. No significant pericardial effusion. LYMPH NODES: No lymphadenopathy. BONES, CHEST WALL: Unremarkable. No fracture or destructive lesion. OTHER FINDINGS: Enlarged thyroid gland bilaterally. Elective thyroid ultrasound advised. Moderate hiatal hernia. IMPRESSION: No large major central pulmonary emboli. Nondiagnostic examination beyond segmental branches based both on qualitative assessment and opacification in the pulmonary arterial system. Subsegmental infiltrate right lower lobe. Progress Note: Blood work, UA, CXR ordered and reviewed. Patient given IV toradol. D-dimer elevated, CTA chest ordered. Reevaluation Time: 19:15 Reassessment Condition: Improved (Patient reassessed, is resting comfortably, and states she feels better. CTA chest neg for central PE, shows right sided possible infiltrate, as well as thyromegaly (patient made aware). Blood work ( other than d-dimer) and EKG unremarkable. Patient given Rxs for Azithromycin and Valium (to use with NSAID for pain). She was instructed to follow up with PMD in 1-2 days, and she understands she should return to ED if symptoms worsen. ) Medical Decision Making Medical Decision Making: differential diagnoses considered: anxiety, costochondritis, pneumonia, bronchitis, GA/ACS, PE, shingles Disposition Counseled Patient/Family Regarding: Studies Performed, Diagnosis, Need For Followup, Rx Given - Disposition Referrals: Marcella Powell MD [Staff Provider] - Yakov Powell MD [Medical Doctor] - Disposition: HOME/ ROUTINE Disposition Time: 19:15 Condition: STABLE Additional Instructions: FOLLOW UP WITH YOUR DOCTOR TOMORROW USE MEDICATIONS DIRECTED RETURN TO ER IF SYMPTOMS WORSEN Prescriptions: Azithromycin 1 tab PO DAILY #6 tab Diazepam [Valium] 2 mg PO BID PRN #15 tablet PRN Reason: musle spasm Instructions: Pneumonia in Adults, Pleuritic Chest Pain (DC) Forms: [employer] (Wolof) Print Language: BURKINAN - POA Present On Arrival: None - Clinical Impression Clinical Impression: Chest pain, pleuritic, Thyromegaly, Pneumonia involving right lung - Scribe Statement The provider has reviewed the documentation as recorded by the Scribe Daniel Sommers Provider Attestation All medical record entries made by the Scribe were at my direction and personally dictated by me. I have reviewed the chart and agree that the record accurately reflects my personal performance of the history, physical exam, medical decision making, and the department course for this patient. I have also personally directed, reviewed, and agree with the discharge instructions and disposition.
--- NOTE | 2017-08-29 18:32 | CT ---
PROCEDURE: CT Chest with contrast (Pulmonary Angiogram) HISTORY: elevated d-dimer, chest pain left side, r/o PE COMPARISON: None available. TECHNIQUE: Axial computed tomography images were obtained of the chest in the pulmonary arterial phase of enhancement. Coronal and sagittal reformatted images were created and reviewed. Intravenous contrast dose: 100 cc Visipaque 320. Mean Hounsfield unit values in the main pulmonary artery: 208.82 Radiation dose: Total exam DLP = 543.41 mGy-cm. This CT exam was performed using one or more of the following dose reduction techniques: Automated exposure control, adjustment of the mA and/or kV according to patient size, and/or use of iterative reconstruction technique. FINDINGS: PULMONARY ARTERIES: Dilated main pulmonary artery consistent with pulmonary arterial hypertension. . No pulmonary embolism. AORTA: No acute findings. No thoracic aortic aneurysm. LUNGS: Subsegmental infiltrate as ago esophageal recess region right lower lobe. PLEURAL SPACES: Unremarkable. No effusion or pneuomothorax. HEART: Unremarkable. No cardiomegaly. No significant pericardial effusion. LYMPH NODES: No lymphadenopathy. BONES, CHEST WALL: Unremarkable. No fracture or destructive lesion OTHER FINDINGS: Enlarged thyroid gland bilaterally. Elective thyroid ultrasound advised. Moderate hiatal hernia. IMPRESSION: No large major central pulmonary emboli. Nondiagnostic examination beyond segmental branches based both on qualitative assessment and opacification in the pulmonary arterial system. Subsegmental infiltrate right lower lobe.
--- NOTE | 2017-08-30 22:30 | CARD ---
APPROVED REPORT EKG Measurement Heart [id number] KS [id number] <Conclusion> Sinus bradycardia with 1st degree AV block Nonspecific ST abnormality Abnormal ECG
== END 2017-08-29 19:17 | disposition home or self-care (01) ==
LOC: C.ER 14:53
DX: J18.9 Pneumonia, unspecified organism (principal); R07.81 Pleurodynia; E01.0 Iodine-deficiency related diffuse (endemic) goiter
CPT/HCPCS: 71045; 71275; 80053; 81001; 82550; 82553; 84484; 84703; 85025; 85378; 93005; 96374; 99285; J1885; Q9967

== ENCOUNTER 2017-09-12 10:27 | Emergency (ER) | payer OTHER ==
[2017-09-12 10:28] VITALS: BMI 33.0
[2017-09-12 10:40] VITALS: TEMP 98.7; O2SAT 100
--- NOTE | 2017-09-12 11:24 | C.PDOC ---
History Of Present Illness 52 y/o female with history of HTN presents to ED with complaints of non improved left sided chest under breast for 5 months. Patient has been seen multiple times at ED for same. Patient recently had negative CTA, negative cardiac work up including negative stress test.Patient has been given Naproxen but states medication elevates blood pressure and has only been Taking Tylenol extra strength with no improvement. Patient reports going to pain management but symptoms have not improved and currently denies sob, cough, fever, nausea or any other complaints at this time. Time Seen by Provider: 09/12/17 10:51 Chief Complaint (Nursing): Chest Pain History Per: Patient History/Exam Limitations: no limitations Onset/Duration Of Symptoms: Days Current Symptoms Are (Timing): Still Present Quality: "Pain" Past Medical History Reviewed: Historical Data, Nursing Documentation, Vital Signs Vital Signs: Last Vital Signs Temp 98.7 F 09/12/17 13:37 Pulse 69 09/12/17 13:37 Resp 18 09/12/17 13:37 BP 109/73 09/12/17 13:37 Pulse Ox 100 09/12/17 14:39 - Medical History PMH: Anemia, Anxiety, Arthritis, Asthma, Back Problems, Diverticulitis, Fractures (R ankle, with hardware), Gastritis, Hiatal Hernia, HTN, Hypercholesterolemia, Migraine, Sleep Apnea, TIA (May 2017) Surgical History: Cholecystectomy (?? or gallstones), Endoscopy - [facility] Procedures RADICAL EXCIS SKIN LES (08/18/14) Family History: States: No Known Family Hx - Social History Hx Tobacco Use: Yes Hx Alcohol Use: No (socially) Hx Substance Use: No - Immunization History Hx Tetanus Toxoid Vaccination: No Hx Influenza Vaccination: Yes (2018) Hx Pneumococcal Vaccination: No Review Of Systems Constitutional: Negative for: Fever, Chills Cardiovascular: Positive for: Chest Pain Respiratory: Negative for: Shortness of Breath Gastrointestinal: Negative for: Nausea, Vomiting Skin: Negative for: Rash Physical Exam - Physical Exam Appears: Non-toxic, No Acute Distress Skin: Warm, Dry, No Rash Head: Atraumatic, Normacephalic Eye(s): bilateral: Normal Inspection Oral Mucosa: Moist Neck: Normal ROM, Supple Chest: Tenderness (Left sided under breast) Cardiovascular: Rhythm Regular Respiratory: Normal Breath Sounds, No Rales, No Rhonchi, No Wheezing Gastrointestinal/Abdominal: Soft, No Tenderness, No Guarding, No Rebound Extremity: Normal ROM, Capillary Refill (<2 seconds) Neurological/Psych: Oriented x3, Normal Speech, Normal Cognition ED Course And Treatment - Laboratory Results Result Diagrams: 09/12/17 11:56 09/12/17 11:56 O2 Sat by Pulse Oximetry: 100 (RA) Pulse Ox Interpretation: Normal Progress Note: Blood work, UA, ECG, CXR ordered. Toradol administered Disposition - Disposition Referrals: Olvin Escalera MD [Staff Provider] - Disposition: HOME/ ROUTINE Disposition Time: 14:29 Condition: STABLE Additional Instructions: Follow up with PMD and product distribution specialist within 1-2 days. Return to ED if feel worse. Instructions: Costochondritis (DC) Forms: [employer] (Czech) - Clinical Impression Clinical Impression: Chest wall pain - PA / BOTTLE ASSEMBLER / Resident Statement MD/DO has reviewed & agrees with the documentation as recorded. - Scribe Statement The provider has reviewed the documentation as recorded by the Sadieibabdiel Shook All medical record entries made by the Sadieibabdiel were at my direction and personally dictated by me. I have reviewed the chart and agree that the record accurately reflects my personal performance of the history, physical exam, medical decision making, and the department course for this patient. I have also personally directed, reviewed, and agree with the discharge instructions and disposition.
[2017-09-12 12:07] LABS: BASO % 0.8 % (0.0-2.0); EOS # 0.1 K/uL (0.0-0.7); HEMOGLOBIN 10.8 g/dL (11.0-16.0); LYMPH # 1.9 K/uL (1.0-4.3); LYMPH % 39.1 % (20.0-40.0); MEAN CELL VOLUME 75.1 fL (81.0-99.0); MEAN CORPUSCULAR HEMOGLOBIN 24.1 pg (27.0-31.0); MEAN CORPUSCULAR HGB CONC 32.1 g/dL (33.0-37.0); MEAN PLATELET VOLUME 7.7 fL (7.2-11.7); MONO # 0.4 K/uL (0.0-0.8); MONO % 8.5 % (0.0-10.0); NEUT # 2.3 K/uL (1.8-7.0); NEUT % 48.6 % (50.0-75.0); NRBC % 0.1 % (0.0-2.0); RBC 4.47 Mil/uL (3.80-5.20); RED CELL DISTRIBUTION WIDTH 15.1 % (11.5-14.5); WHITE BLOOD COUNT 4.8 K/uL (4.8-10.8)
[2017-09-12 12:13] LABS: INR 1.1; PROTHROMBIN TIME 12.7 SECONDS (9.7-12.2)
[2017-09-12 12:20] LABS: ALB/GLOB RATIO 1.1 (1.0-2.1); ALBUMIN 4.1 g/dL (3.5-5.0); ALT/SGPT 30 U/L (9-52); AST/SGOT 25 U/L (14-36); BLOOD UREA NITROGEN 9 mg/dL (7-17); CALCIUM 9.1 mg/dl (8.6-10.4); GFR AFRICAN-AMERICAN > 60; GFR NON-AFRICAN AMERICAN > 60
[2017-09-12 12:30] LABS: CK-MB < 0.22 ng/mL (0.0-3.38)
[2017-09-12 13:17] LABS: URINE BILIRUBIN NEGATIVE (NEGATIVE); URINE CLARITY Clear (Clear); URINE COLOR YELLOW (YELLOW); URINE GLUCOSE (UA) NEGATIVE (Normal)
[2017-09-12 13:18] LABS: URINE BLOOD TRACE-INTACT (NEGATIVE); URINE PROTEIN NEGATIVE (NEGATIVE); URINE UROBILINOGEN 0.2 mg/dL (0.2-1.0)
[2017-09-12 13:19] LABS: SQUAMOUS EPITHIAL 6 /hpf (0-5); URINE LEUKOCYTE ESTERASE Negative Leu/uL (Negative)
[2017-09-12] MEDS ORDERED: Lidocaine 5% Patch TD STA (13:24)
[2017-09-12] MEDS ORDERED: Morphine 4 MG/ML VIAL ONE (13:35)
[2017-09-12] MEDS ORDERED: Lidocaine 5% Patch TD ONE (13:35)
[2017-09-12 13:37] VITALS: BP 109/73; PULSE 69; RESP 18
--- NOTE | 2017-09-12 13:55 | RAD ---
Chest x-ray single frontal view History: Chest pain. Comparison: 08/29/2017 Findings: Mild venous congestion. Heart size within normal limits. Degenerative changes in the spine. Impression: Mild venous congestion.
== END 2017-09-12 14:54 | disposition home or self-care (01) ==
LOC: C.ER 10:27
DX: R07.89 Other chest pain (principal); E78.00 Pure hypercholesterolemia, unspecified; I10 Essential (primary) hypertension; Z72.0 Tobacco use
CPT/HCPCS: 71045; 80053; 81001; 82550; 82553; 84484; 85025; 85610; 85730; 96374; 96375; 99285; J1885; J2270

== ENCOUNTER 2017-10-06 01:44 | Emergency (ER) | payer OTHER ==
[2017-10-06 01:46] VITALS: BMI 33.0
--- NOTE | 2017-10-06 02:25 | C.PDOC ---
History Of Present Illness 52 year old female presents to the ER with a complaint of high blood pressure and leg swelling. Patient states she feels like her blood pressure is not controlled by the medication. Denies SOB or chest pain. Chief Complaint (Nursing): High Blood Pressure History Per: Patient History/Exam Limitations: no limitations Onset/Duration Of Symptoms: Hrs Current Symptoms Are (Timing): Still Present Associated Symptoms: Other (Leg swelling) Quality Of Symptoms: Asymptomatic Recent travel outside of the [place]: No Past Medical History Reviewed: Historical Data, Nursing Documentation, Vital Signs Vital Signs: Last Vital Signs Temp 98.8 F 10/06/17 01:50 Pulse 69 10/06/17 04:35 Resp 17 10/06/17 04:35 BP 105/52 L 10/06/17 04:35 Pulse Ox 100 10/06/17 06:01 - Medical History PMH: Anemia, Anxiety, Arthritis, Asthma, Back Problems, Diverticulitis, Fractures (R ankle, with hardware), Gastritis, Hiatal Hernia, HTN, Hypercholesterolemia, Migraine, Sleep Apnea, TIA (May 2017) Surgical History: Cholecystectomy (?? or gallstones), Endoscopy - [facility] Procedures RADICAL EXCIS SKIN LES (08/18/14) Family History: States: Unknown Family Hx - Social History Hx Tobacco Use: Yes Hx Alcohol Use: No (socially) Hx Substance Use: No - Immunization History Hx Tetanus Toxoid Vaccination: No Hx Influenza Vaccination: Yes (2017) Hx Pneumococcal Vaccination: No Review Of Systems Constitutional: Negative for: Fever, Chills Cardiovascular: Negative for: Chest Pain, Palpitations Respiratory: Negative for: Cough, Shortness of Breath Gastrointestinal: Negative for: Nausea, Vomiting Musculoskeletal: Positive for: Other (Leg swelling) Physical Exam - Physical Exam Appears: Non-toxic Skin: Normal Color, Warm, Dry Head: Atraumatic, Normacephalic Eye(s): bilateral: Normal Inspection Oral Mucosa: Moist Chest: Symmetrical, No Tenderness Cardiovascular: Rhythm Regular Respiratory: Normal Breath Sounds, No Rales, No Rhonchi, No Wheezing Gastrointestinal/Abdominal: Soft, No Tenderness Extremity: Normal ROM (x4) Neurological/Psych: Oriented x3, Normal Speech ED Course And Treatment - Laboratory Results Result Diagrams: 10/06/17 02:59 10/06/17 02:59 ECG: Interpreted By Me, Viewed By Me ECG Rhythm: Sinus Bradycardia, 1st Degree HB ECG Interpretation: No Acute Changes Interpretation Of ECG: Sinus bradycardia ith first degree AV block, no acute ST changes Rate From EC O2 Sat by Pulse Oximetry: 100 Pulse Ox Interpretation: Normal - Radiology CXR: Interpreted by Me, Viewed By Me CXR Interpretation: Yes: No Acute Disease, Other (normal chest film). No: Infiltrates, Cardiomegaly Disposition Counseled Patient/Family Regarding: Diagnosis - Disposition Referrals: [facility] [Outside] Disposition: HOME/ ROUTINE Disposition Time: 05:58 Condition: STABLE Additional Instructions: continue lisinopril Prescriptions: Nitrofurantoin Macrocrystals [Macrobid] 100 mg PO BID #14 cap Instructions: Hiatal Hernia, High Blood Pressure (DC), Low Salt Diet, Medicines for High Blood Pressure, Urinary Tract Infections in Adults Forms: [facility] (Venezuelan) - POA Present On Arrival: None - Clinical Impression Clinical Impression: Hypertension, UTI (urinary tract infection) - Scribe Statement The provider has reviewed the documentation as recorded by the Scribabdiel Carlin All medical record entries made by the Scribe were at my direction and personally dictated by me. I have reviewed the chart and agree that the record accurately reflects my personal performance of the history, physical exam, medical decision making, and the department course for this patient. I have also personally directed, reviewed, and agree with the discharge instructions and disposition.
[2017-10-06 03:02] LABS: BASO % 0.4 % (0.0-2.0); EOS # 0.2 K/uL (0.0-0.7); HEMOGLOBIN 10.3 g/dL (11.0-16.0); LYMPH # 2.3 K/uL (1.0-4.3); LYMPH % 36.3 % (20.0-40.0); MEAN CELL VOLUME 74.4 fL (81.0-99.0); MEAN CORPUSCULAR HEMOGLOBIN 24.2 pg (27.0-31.0); MEAN CORPUSCULAR HGB CONC 32.6 g/dL (33.0-37.0); MEAN PLATELET VOLUME 7.2 fL (7.2-11.7); MONO # 0.5 K/uL (0.0-0.8); MONO % 8.2 % (0.0-10.0); NEUT # 3.3 K/uL (1.8-7.0); NEUT % 52.1 % (50.0-75.0); NRBC % 0.1 % (0.0-2.0); RBC 4.23 Mil/uL (3.80-5.20); RED CELL DISTRIBUTION WIDTH 15.2 % (11.5-14.5); WHITE BLOOD COUNT 6.3 K/uL (4.8-10.8)
[2017-10-06 03:15] LABS: ALB/GLOB RATIO 1.1 (1.0-2.1); ALBUMIN 4.2 g/dL (3.5-5.0); ALT/SGPT 60 U/L (9-52); AST/SGOT 33 U/L (14-36); BLOOD UREA NITROGEN 13 mg/dL (7-17); CALCIUM 9.3 mg/dl (8.6-10.4); GFR AFRICAN-AMERICAN > 60; GFR NON-AFRICAN AMERICAN > 60
[2017-10-06] MEDS ORDERED: Iodixanol 320 MG/ML 100 ML BOTTLE IV ONE ×2 (03:40→04:52)
[2017-10-06 03:52] LABS: SQUAMOUS EPITHIAL 9 /hpf (0-5); URINE BILIRUBIN NEGATIVE (NEGATIVE); URINE BLOOD 1+ (NEGATIVE); URINE CLARITY Clear (Clear); URINE COLOR Straw (YELLOW); URINE GLUCOSE (UA) NORMAL (Normal); URINE LEUKOCYTE ESTERASE 2+ Leu/uL (Negative); URINE PROTEIN NEGATIVE (NEGATIVE); URINE UROBILINOGEN NORMAL mg/dL (0.2-1.0)
--- NOTE | 2017-10-06 05:48 | CT ---
EXAM: CT Angiography Chest With Intravenous Contrast CLINICAL HISTORY: 52 years old, female; Abnormal findings; Other: Elevated d-dimer TECHNIQUE: Axial computed tomographic angiography images of the chest with intravenous contrast using pulmonary embolism protocol. All CT scans at this facility use one or more dose reduction techniques, viz.: automated exposure control; ma/kV adjustment per patient size (including targeted exams where dose is matched to indication; i.e. head); or iterative reconstruction technique. MIP reconstructed images were created and reviewed. Coronal and sagittal reformatted images were created and reviewed. CONTRAST: 100 mL of visipaque administered intravenously. COMPARISON: No relevant prior studies available. FINDINGS: Limitations: Motion artifact - mild. Suboptimal timing of bolus. Pulmonary arteries: No definite pulmonary embolism. Aorta: No aneurysm. No dissection. Lungs: Minimal atelectasis. No consolidation. Pleural space: No significant effusion. No pneumothorax. Heart: No cardiomegaly. No significant pericardial effusion. Mediastinum: Moderate-sized hiatal hernia. Thyroid: Mildly prominent. Bones/joints: No acute fracture. Soft tissues: Unremarkable. Lymph nodes: No pathologically enlarged lymph nodes. Gallbladder and bile ducts: Cholecystectomy. Stomach and bowel: Few colonic diverticula. IMPRESSION: 1. No definite CT evidence of pulmonary embolism. 2. Mildly prominent thyroid. Clinical correlation is needed. 3. Incidental/non-acute findings are described above.
[2017-10-06 06:15] VITALS: BP 118/62; PULSE 60; RESP 15; TEMP 98; O2SAT 98
--- NOTE | 2017-10-06 10:04 | RAD ---
HISTORY: chest pain COMPARISON: Portable chest 09/12/2017. TECHNIQUE: Chest PA and lateral FINDINGS: LUNGS: No active pulmonary disease. PLEURA: No significant pleural effusion identified. No pneumothorax apparent. CARDIOVASCULAR: Normal. OSSEOUS STRUCTURES: No significant abnormalities. VISUALIZED UPPER ABDOMEN: Normal. OTHER FINDINGS: None. IMPRESSION: No interval acute cardiopulmonary disease appreciated.
--- NOTE | 2017-10-07 12:42 | CARD ---
APPROVED REPORT EKG Measurement Heart [id number] <Conclusion> Sinus bradycardia with 1st degree AV block Incomplete right bundle branch block Minimal voltage criteria for LVH, may be normal variant Borderline ECG
== END 2017-10-06 06:35 | disposition home or self-care (01) ==
LOC: C.ER 01:44
DX: I10 Essential (primary) hypertension (principal); N39.0 Urinary tract infection, site not specified
CPT/HCPCS: 71046; 71275; 80053; 81001; 84484; 85025; 85378; 87086; 93005; 96374; 99285; J1885; Q9967

== ENCOUNTER 2017-11-28 11:17 | Emergency (ER) | payer OTHER ==
[2017-11-28 11:17] VITALS: BMI 32.2
--- NOTE | 2017-11-28 11:29 | C.PDOC ---
History Of Present Illness 52 yo female comes in for evaluation after she fell in the supermarket yesterday. Patient states she slipped on a wet floor and twisted her right knee and ankle. Currently, she is complaining of pain to her right knee, right ankle , neck and lower back. She denies head injury, loss of consciousness, lower extremity weakness or numbness. Time Seen by Provider: 11/28/17 11:27 Chief Complaint (Nursing): Back Pain History Per: Patient History/Exam Limitations: no limitations Onset/Duration Of Symptoms: Days Current Symptoms Are (Timing): Still Present Quality Of Discomfort: "Pain" Past Medical History Reviewed: Historical Data, Nursing Documentation, Vital Signs Vital Signs: Last Vital Signs Temp 98.0 F 11/28/17 13:45 Pulse 62 11/28/17 13:45 Resp 18 11/28/17 13:45 BP 151/88 H 11/28/17 13:45 Pulse Ox 97 11/28/17 13:45 - Medical History PMH: Anemia, Anxiety, Arthritis, Asthma, Back Problems, Diverticulitis, Fractures (R ankle, with hardware), Gastritis, Hiatal Hernia, HTN, Hypercholesterolemia, Migraine, Sleep Apnea, TIA (May 2017) Surgical History: Cholecystectomy (?? or gallstones), Endoscopy - [facility] Procedures RADICAL EXCIS SKIN LES (08/18/14) Family History: States: No Known Family Hx - Social History Hx Tobacco Use: Yes Hx Alcohol Use: No (socially) Hx Substance Use: No - Immunization History Hx Tetanus Toxoid Vaccination: No Hx Influenza Vaccination: Yes (2018) Hx Pneumococcal Vaccination: No Review Of Systems Constitutional: Negative for: Fever Cardiovascular: Negative for: Chest Pain Respiratory: Negative for: Shortness of Breath Gastrointestinal: Negative for: Nausea, Vomiting, Abdominal Pain Musculoskeletal: Positive for: Neck Pain, Back Pain, Foot Pain Neurological: Negative for: Weakness, Numbness, Headache, Dizziness, Other (LOC) Physical Exam - Physical Exam Appears: Well, Non-toxic, No Acute Distress Skin: Normal Color, Warm, Dry Head: Atraumatic, Normacephalic, No Tenderness, No Swelling, No Abrasion Eye(s): bilateral: Normal Inspection Oral Mucosa: Moist Neck: No Midline Cervical Tenderness, Paracervical Tenderness, No Step Off Deformity, Supple Cardiovascular: Rhythm Regular Respiratory: Normal Breath Sounds, No Rales, No Rhonchi, No Wheezing Back: No CVA Tenderness, No Vertebral Tenderness, Paraspinal Tenderness (lumbar) Extremity: Tenderness (mild tenderness diffusely to right knee and right lateral malleolus. ), No Pedal Edema, No Calf Tenderness, No Deformity, Swelling (mild swelling to right knee and ankle) Pulses: Left Dorsalis Pedis: Normal, Right Dorsalis Pedis: Normal Neurological/Psych: Oriented x3, Normal Motor, Normal Sensation ED Course And Treatment O2 Sat by Pulse Oximetry: 100 (RA) Pulse Ox Interpretation: Normal Progress Note: Xrays of right ankle, right knee, C spine and LS Spine ordered and reviewed. Patient given PO Naprosyn and Flexeril. Xrays (-) for acute fx /bony injury. Patient placed in right knee brace and given crutches and instruction by PT. Patient instructed to follow up with orthopedics within 1 week, and understands she should return to ED if symptoms worsen. Reevaluation Time: 14:00 Reassessment Condition: Improved (On reassessment, patient is resting comfortably and pain has improved.) Disposition Counseled Patient/Family Regarding: Studies Performed, Diagnosis, Need For Followup, Rx Given - Disposition Referrals: Joel Simon MD [Staff Provider] - Disposition: HOME/ ROUTINE Disposition Time: 14:00 Condition: STABLE Additional Instructions: FOLLOW UP WITH ORTHOPEDICS WITHIN 1 WEEK USE PAIN MEDICATION NEEDED ELEVATE LEFT LEG MUCH POSSIBLE RETURN TO ER IF SYMPTOMS WORSEN Prescriptions: Cyclobenzaprine [Flexeril] 10 mg PO BID PRN #15 tab PRN Reason: Muscle Spasm Naproxen 375 mg PO BID PRN #20 tablet PRN Reason: pain Instructions: Ankle Sprain (DC), Muscle Spasms (DC), Knee Sprain (DC) Forms: [facility] (Slovak) Print Language: [place] - POA Present On Arrival: Falls Or Trauma - Clinical Impression Clinical Impression: Right knee sprain, Right ankle sprain, Acute neck sprain - Scribe Statement The provider has reviewed the documentation as recorded by the Scribe (Soledad Graham) Provider Attestation: All medical record entries made by the Scribe were at my direction and personally dictated by me. I have reviewed the chart and agree that the record accurately reflects my personal performance of the history, physical exam, medical decision making, and the department course for this patient. I have also personally directed, reviewed, and agree with the discharge instructions and disposition.
[2017-11-28] MEDS ORDERED: Naproxen 550 mg Tab PO STA (11:48)
[2017-11-28] MEDS ORDERED: Naproxen 550 mg Tab PO ONE (11:58)
[2017-11-28 13:49] VITALS: BP 151/88; PULSE 62; RESP 18; TEMP 98
--- NOTE | 2017-11-28 14:17 | RAD ---
PROCEDURE: Cervical Spine Radiographs. HISTORY: Pain. COMPARISON: None. FINDINGS: BONES: Alignment maintained. No fracture. Dens Intact. C5-C6 and C7 anterior prominent spondylosis. DISC SPACES: Narrowed C5-6 and C6-7 disc spaces SOFT TISSUES: Normal. No prevertebral soft tissue swelling. OTHER FINDINGS: None. IMPRESSION: Arthrosis -no fracture appreciated.
--- NOTE | 2017-11-28 14:34 | RAD ---
PROCEDURE: Radiographs of the Lumbar Spine. HISTORY: low back pain after fall COMPARISON: No prior. FINDINGS: BONES: Normal alignment. No listhesis. No fracture. L4-5 and lesser L5-S1 hypertrophic arthrosis. DISC SPACES: Unremarkable. OTHER FINDINGS: Right upper quadrant post cholecystectomy clips. . Right hemipelvic clip Right sided Stool retention. IMPRESSION: No lumbar fracture or lumbar spondylolisthesis appreciated. Lumbar inferior hypertrophic arthrosis Other findings -as above.
--- NOTE | 2017-11-28 14:40 | RAD ---
PROCEDURE: Right Knee Radiographs. HISTORY: right knee pain after fall COMPARISON: None. FINDINGS: BONES: No fracture. JOINTS: Arthrosis JOINT EFFUSION: None. OTHER FINDINGS: None. IMPRESSION: No fracture appreciated Tibial spine spurring the lateral tibial plateau spurring and subarticular cystic arthropathy changes medial femoral tibial compartment closest to the intercondylar fossa.
--- NOTE | 2017-11-28 14:58 | RAD ---
PROCEDURE: Right Ankle Radiographs. HISTORY: right ankle pain after fall COMPARISON: None FINDINGS: BONES: No acute fracture. JOINTS: No dislocation. There is tibiotalar and fibulotalar arthrosis ankle mortise maintained. Talar dome intact Plantar and Achilles Tendon insertion calcaneal spurs SOFT TISSUES: The medial and lateral lower soft tissues are minimally prominent chronicity of this appearance unknown OTHER FINDINGS: Two diagonal screws transfix an old medial malleolar fracture. A lateral compression plate with 6 screws transfix a stool lateral malleolar/fibular fracture. No comparison images to assess for any hardware changes or interval osseous changes are available IMPRESSION: No acute fracture or dislocation noted. Postoperative changes as above. Arthrosis Prominent inferior calcaneal spurring smaller Achilles tendon insertional enthesophyte
[2017-11-30 08:32] VITALS: O2SAT 100
== END 2017-11-28 13:53 | disposition home or self-care (01) ==
LOC: C.ER 11:17
DX: S13.9XXA Sprain of joints and ligaments of unspecified parts of neck, initial encounter (principal); S83.91XA Sprain of unspecified site of right knee, initial encounter; S93.401A Sprain of unspecified ligament of right ankle, initial encounter; W01.0XXA Fall on same level from slipping, tripping and stumbling without subsequent striking against object, initial encounter; Y92.512 Supermarket, store or market as the place of occurrence of the external cause
CPT/HCPCS: 72040; 72100; 73562; 73610; 96372; 97116; 97161; 99285; G8978; G8979; G8980; J1885

== ENCOUNTER 2017-12-11 11:51 | Emergency (ER) | payer OTHER ==
[2017-12-11 11:52] VITALS: BMI 32.2
[2017-12-11] MEDS ORDERED: Aspirin 325 mg EC Tablets PO STA (13:20)
--- NOTE | 2017-12-11 13:27 | C.PDOC ---
History Of Present Illness 52 y/o female presents to ED with c/o left sided "pressure" chest pain associated with sob since this morning. Patient states she has had chest pain in the past and has been taking Naprosyn with mild relief but stopped taking secondary to elevated blood pressure as per patient. Pain is constant and does not change with deep inspiration or cough. She has no URI symptoms. Patient denies nausea, vomiting, diaphoresis or any other complaints at this time. Time Seen by Provider: 12/11/17 13:16 Chief Complaint (Nursing): Chest Pain History Per: Patient History/Exam Limitations: no limitations Onset/Duration Of Symptoms: Days Current Symptoms Are (Timing): Still Present Quality: "Pain" Associated Symptoms: denies: Nausea, Diaphoresis Past Medical History Reviewed: Historical Data, Nursing Documentation, Vital Signs Vital Signs: Last Vital Signs Temp 98.3 F 12/11/17 12:28 Pulse 91 H 12/11/17 12:28 Resp 20 12/11/17 12:28 BP 103/70 12/11/17 12:28 Pulse Ox 99 12/11/17 15:01 - Medical History PMH: Anemia, Anxiety, Arthritis, Asthma, Back Problems, Depression, Diverticulitis, Fractures (R ankle, with hardware), Gastritis, Hiatal Hernia, HTN, Hypercholesterolemia, Migraine, Sleep Apnea, TIA (May 2017) Surgical History: Cholecystectomy, Endoscopy - [facility] Procedures RADICAL EXCIS SKIN LES (08/18/14) Family History: States: No Known Family Hx - Social History Hx Tobacco Use: Yes Hx Alcohol Use: No (socially) Hx Substance Use: No - Immunization History Hx Tetanus Toxoid Vaccination: No Hx Influenza Vaccination: Yes (2018) Hx Pneumococcal Vaccination: No Review Of Systems Constitutional: Negative for: Fever, Chills Cardiovascular: Positive for: Chest Pain Respiratory: Positive for: Shortness of Breath. Negative for: Cough Gastrointestinal: Negative for: Nausea, Vomiting Skin: Negative for: Rash Physical Exam - Physical Exam Appears: Non-toxic, No Acute Distress Skin: Warm, Dry, No Rash Head: Atraumatic, Normacephalic Eye(s): bilateral: Normal Inspection Oral Mucosa: Moist Neck: Normal ROM, Supple Chest: Tenderness (left anterior costal area) Cardiovascular: Rhythm Regular Respiratory: Normal Breath Sounds, No Rales, No Rhonchi, No Wheezing Gastrointestinal/Abdominal: Soft, No Tenderness, No Rebound Extremity: No Pedal Edema, Capillary Refill (<2 seconds) Neurological/Psych: Oriented x3, Normal Speech, Normal Cognition ED Course And Treatment - Laboratory Results Result Diagrams: 12/11/17 13:39 12/11/17 14:45 Lab Interpretation: Normal ECG: Interpreted By Me ECG Rhythm: Sinus Rhythm (with left axis) ECG Interpretation: No Acute Changes O2 Sat by Pulse Oximetry: 99 (RA) Pulse Ox Interpretation: Normal - Radiology CXR: Viewed By Me, Read By Radiologist CXR Interpretation: Yes: No Acute Disease Reevaluation Time: 15:29 Reassessment Condition: Improved (after Toradol) Disposition Counseled Patient/Family Regarding: Studies Performed, Diagnosis, Need For Followup, Rx Given - Disposition Referrals: Marcella Powell MD [Staff Provider] - Disposition: HOME/ ROUTINE Disposition Time: 15:29 Condition: IMPROVED Prescriptions: Methylprednisolone [Medrol Dose Pack (21 tabs)] 4 mg PO DAILY #21 mg Instructions: Costochondritis Forms: [facility] (Emirati) - Clinical Impression Clinical Impression: Chest wall pain - Scribe Statement The provider has reviewed the documentation as recorded by the Scribabdiel Shook All medical record entries made by the Scribe were at my direction and personally dictated by me. I have reviewed the chart and agree that the record accurately reflects my personal performance of the history, physical exam, medical decision making, and the department course for this patient. I have also personally directed, reviewed, and agree with the discharge instructions and disposition.
[2017-12-11 13:50] LABS: EOS # 0.1 K/uL (0.0-0.7); HEMOGLOBIN 11.1 g/dL (11.0-16.0); MEAN CORPUSCULAR HGB CONC 33.1 g/dL (33.0-37.0); MEAN PLATELET VOLUME 8.4 fL (7.2-11.7); MONO # 0.4 K/uL (0.0-0.8)
[2017-12-11 14:00] LABS: BASO % 0.6 % (0.0-2.0); EOS % 2.4 % (0.0-4.0); LYMPH # 2.3 K/uL (1.0-4.3); LYMPH % 40.7 % (20.0-40.0); MEAN CELL VOLUME 74.3 fL (81.0-99.0); MEAN CORPUSCULAR HEMOGLOBIN 24.6 pg (27.0-31.0); NEUT # 2.8 K/uL (1.8-7.0); NEUT % 49.3 % (50.0-75.0); NRBC % 0.3 % (0.0-2.0); RBC 4.53 Mil/uL (3.80-5.20); RED CELL DISTRIBUTION WIDTH 15.2 % (11.5-14.5); WHITE BLOOD COUNT 5.7 K/uL (4.8-10.8)
--- NOTE | 2017-12-11 14:04 | RAD ---
Date of service: 12/11/2017 PROCEDURE: CHEST RADIOGRAPH, 1 VIEW HISTORY: chest pain COMPARISON: Chest radiograph 10/06/2017 FINDINGS: LUNGS: Clear. PLEURA: No pneumothorax or pleural fluid seen. CARDIOVASCULAR: Normal. OSSEOUS STRUCTURES: No significant abnormalities. VISUALIZED UPPER ABDOMEN: Normal. OTHER FINDINGS: None. IMPRESSION: No active disease.
[2017-12-11 15:02] LABS: ALB/GLOB RATIO 1.3 (1.0-2.1); ALBUMIN 4.1 g/dL (3.5-5.0); ALT/SGPT 35 U/L (9-52); AST/SGOT 22 U/L (14-36); BLOOD UREA NITROGEN 12 mg/dL (7-17); CALCIUM 9.5 mg/dl (8.6-10.4); GFR AFRICAN-AMERICAN > 60; GFR NON-AFRICAN AMERICAN 58
[2017-12-11 15:38] VITALS: BP 126/83; PULSE 94; RESP 18; TEMP 98.5; O2SAT 100
--- NOTE | 2017-12-12 11:32 | CARD ---
APPROVED REPORT Date of service: 12/11/2017 EKG Measurement Heart [id number] ND [id number] <Conclusion> Normal sinus rhythm Left axis deviation Abnormal ECG
== END 2017-12-11 15:46 | disposition home or self-care (01) ==
LOC: C.ER 11:51
DX: R07.89 Other chest pain (principal)
CPT/HCPCS: 71045; 80053; 84484; 85025; 93005; 96374; 99285; J1885

== ENCOUNTER 2018-01-16 11:36 | Emergency (ER) | payer OTHER ==
[2018-01-16 11:37] VITALS: BMI 32.2
[2018-01-16 12:03] VITALS: RESP 16; O2SAT 100
--- NOTE | 2018-01-16 12:57 | C.PDOC ---
History Of Present Illness 53 y/o female presents to the ED with multiple complaints. The patient states she has been having swelling to the right axilla for one day, and c/o pain below left breast for unspecified amount of time. pt taking gapapentin for post herpetic neuralgia for pain under breast and states it hasn't been working for her. The patient also reports a frontal LAZO x 3 days that worsens when she leans forward, with nasal congestion and a sore throat. pt already taking flonase. denies fever and chills. pt sts unable to see her doctor since he's on vacation. Time Seen by Provider: 01/16/18 12:07 Chief Complaint (Nursing): Chest Pain History Per: Patient History/Exam Limitations: no limitations Onset/Duration Of Symptoms: Days Current Symptoms Are (Timing): Still Present Recent travel outside of the [place]: No Past Medical History Reviewed: Historical Data, Nursing Documentation, Vital Signs Vital Signs: Last Vital Signs Temp 98.5 F 01/16/18 14:31 Pulse 69 01/16/18 14:31 Resp 16 01/16/18 14:31 BP 122/92 H 01/16/18 14:31 Pulse Ox 100 01/17/18 17:18 - Medical History PMH: Anemia, Anxiety, Arthritis, Asthma, Back Problems, Depression, Diverticulitis, Fractures (R ankle, with hardware), Gastritis, Hiatal Hernia, HTN, Hypercholesterolemia, Migraine, Sleep Apnea, TIA (May 2017) Denies: Chronic Kidney Disease Surgical History: Cholecystectomy, Endoscopy - [facility] Procedures RADICAL EXCIS SKIN LES (08/18/14) Family History: States: Unknown Family Hx - Social History Hx Tobacco Use: Yes Hx Alcohol Use: No (socially) Hx Substance Use: No - Immunization History Hx Tetanus Toxoid Vaccination: No Hx Influenza Vaccination: Yes (2018) Hx Pneumococcal Vaccination: No Review Of Systems Constitutional: Positive for: Other (swelling to the Right axilla). Negative for: Fever, Chills ENT: Positive for: Nose Congestion, Other (sore throat.) Musculoskeletal: Positive for: Other (Rib pain below left breast). Negative for : Shoulder Pain, Arm Pain Skin: Negative for: Bruising Neurological: Positive for: Headache (:Frontal LAZO) Physical Exam - Physical Exam Appears: Non-toxic, No Acute Distress Skin: Warm, Dry, No Rash, Other (large scar in right axilla; fluctuant 1 cm area on medial aspect scar. no drainage. no surrounding erythema or warmth) Head: Atraumatic, Normacephalic Eye(s): bilateral: PERRL, EOMI Ear(s): Bilateral: Normal Nose: No Discharge, Tenderness (frontal sinus tenderness and maxillary sinus tenderness) Oral Mucosa: Moist Throat: No Erythema, No Exudate Neck: Normal ROM, No Midline Cervical Tenderness, Supple Chest: Symmetrical, Tenderness (no reproducible left sided chest wall tenderness. tender under left breast; no crepitus or step off, no rash. ) Cardiovascular: Rhythm Regular, No Murmur Respiratory: Normal Breath Sounds, No Rales, No Rhonchi, No Wheezing, Other ( clear to auscultation b/l) Gastrointestinal/Abdominal: Bowel Sounds, Soft, No Tenderness, No Distention, No Guarding Extremity: Normal ROM, Tenderness (to right axilla) Pulses: Left Radial: Normal, Right Radial: Normal Neurological/Psych: Oriented x3, Normal Speech, Normal Cognition Additional Physical Exam Comments: Right axilla-- large scar at medical aspect. mild fluctuance ED Course And Treatment ECG: Interpreted By Me ECG Rhythm: Sinus Rhythm (NSR) ECG Interpretation: Normal Interpretation Of ECG: Vent Rate 67 bpm. PA 192 ms. QRS 88 ms. QT 414 ms. QTc 437 ms O2 Sat by Pulse Oximetry: 100 (RA) Pulse Ox Interpretation: Normal Medical Decision Making Medical Decision Making: Impression: 53 y/o female with swelling to right axilla, rib pain below left breast, Frontal LAZO Plan: -Toradol 30 mg IM 1400 pt with decreased pain. wants to go home. will d/c with augmentin for axillary swelling with warm compresses at home. . increase flonase dose to bid, claritin, nasal saline, nsaids for pain. f/u surgery and ent and pmd and neurology. not given sudafed due to hx htn. pt reports she wants to speak with patient education courses sales representative; Charisse made aware; saw pt in ed. Disposition Discussed With : Marcella Powell Doctor Will See Patient In The: Office Counseled Patient/Family Regarding: Diagnosis, Need For Followup, Rx Given - Disposition Referrals: Marcella Powell MD [Staff Provider] - Chandu Tolbert MD [Staff Provider] - Main Lee MD [Staff Provider] - Disposition: HOME/ ROUTINE Disposition Time: 14:06 Condition: GOOD Additional Instructions: MEDICATIONS SENT TO [facility] Please increase use of Flonase to one spray in each nostril two times a day ( from one time). Use Claritin as prescribed Take Augmentin until completed; and apply warm compresses in right armpit 4-=5 times per day. If this abscess doesn't start to drain on its own, then recommend following up with the surgeon who operated there or general surgery. Continue taking gabapentin; recommend follow up with neurologist or other doctor prescribing this medicine. Take naproxen for pain. Follow up with Dr Powell tomorrow or Saturday Prescriptions: Amoxicillin/Clavulanate [Augmentin 875 MG-125 MG] 1 tab PO BID #20 tab Loratadine [Claritin] 10 mg PO DAILY #30 tab Naproxen 500 mg PO BID #20 tab Instructions: Skin Abscess, Sinus Headache (DC) Forms: [email or web address] (Kazakh), General Discharge Instructions - Clinical Impression Clinical Impression: Sinus headache, Abscess of right axilla, Neuralgia, post-herpetic - PA / CIGARETTE PAPER TESTER / Resident Statement MD/DO has reviewed & agrees with the documentation as recorded. - Scribe Statement The provider has reviewed the documentation as recorded by the Scribe (Gillian Mack) All medical record entries made by the Scribe were at my direction and personally dictated by me. I have reviewed the chart and agree that the record accurately reflects my personal performance of the history, physical exam, medical decision making, and the department course for this patient. I have also personally directed, reviewed, and agree with the discharge instructions and disposition.
[2018-01-16 14:32] VITALS: BP 122/92; PULSE 69; TEMP 98.5
--- NOTE | 2018-01-16 19:05 | CARD ---
APPROVED REPORT Date of service: 01/16/2018 EKG Measurement Heart [id number] DC [id number] <Conclusion> Normal sinus rhythm Normal ECG
== END 2018-01-16 14:31 | disposition home or self-care (01) ==
LOC: C.ER 11:36
DX: L02.411 Cutaneous abscess of right axilla (principal); R51 Headache; B02.29 Other postherpetic nervous system involvement
CPT/HCPCS: 93005; 96372; 99285; J1885

== ENCOUNTER 2018-04-01 06:52 | Day surgery (SDC) | payer OTHER ==
[2018-04-01 07:19] VITALS: BMI 33.2
--- NOTE | 2018-04-01 09:00 | CP.SDSHP ---
Same Day Surgery H & P - History Proposed Procedure: EGD Pre-Op Diagnosis: SEE NOTES - Previous Medical/Surgical History Cardiac: Hypertension Endocrine/Metabolic: Other Misc: Other - Allergies Allergies: Allergies No Known Allergies Allergy (Verified 02/01/18 09:07) - Physical Exam General Appearance: N Vital Signs: Vital Signs 04/01/18 07:34 Temperature 98 F Pulse Rate 80 Respiratory 18 Rate Blood Pressure 112/75 O2 Sat by Pulse 97 Oximetry Mental Status: Alert & Oriented x3 Neuro: WNL Heart: Other Lungs: WNL GI: Other - {Optional Preform as Required} Breast: WNL Abdomen: Other Rectal: Other Integument: WNL : WNL Ortho: WNL ENT: WNL - Impression Pt. Evaluated Today:Candidate for Anesthesia & Procedure: Yes - Date & Time Time: 09:00 Short Stay Discharge - Short Stay Discharge Admitting Diagnosis/Reason for Visit: DYSPEPSIA Disposition: HOME/ ROUTINE
[2018-04-01] MEDS ORDERED: Propofol 10 mg/ml Inj (20 ML) ONE (09:01)
[2018-04-01] MEDS ORDERED: Midazolam 2 MG/2 ML VIAL ONE (09:01)
[2018-04-01] MEDS ORDERED: Lactated Ringer's 1,000 ML IV ONE (09:03)
[2018-04-01] MEDS ORDERED: Belladonna-Phenobarbital PO ONE (09:25)
[2018-04-01 09:40] VITALS: RESP 15; TEMP 97.6
[2018-04-01 10:36] VITALS: BP 108/70; PULSE 59; O2SAT 100
== END 2018-04-01 10:30 | disposition home or self-care (01) ==
LOC: C.ENDO 06:52
PROVIDERS: ATTEND Specialist
DX: K30 Functional dyspepsia (principal); K21.9 Gastro-esophageal reflux disease without esophagitis; K44.9 Diaphragmatic hernia without obstruction or gangrene; K31.9 Disease of stomach and duodenum, unspecified
CPT/HCPCS: 43239; 84703; 88305; 88342; J2250; J2704; J7120

== ENCOUNTER 2018-05-01 15:57 | Emergency (ER) | payer OTHER ==
[2018-05-01 15:58] VITALS: BMI 33.2
[2018-05-01 16:09] VITALS: RESP 18
[2018-05-01 17:00] LABS: BASO % 0.6 % (0.0-2.0); EOS # 0.2 K/uL (0.0-0.7); EOS % 2.6 % (0.0-4.0); LYMPH # 2.5 K/uL (1.0-4.3); LYMPH % 40.4 % (20.0-40.0); MEAN CELL VOLUME 75.5 fL (81.0-99.0); MEAN CORPUSCULAR HGB CONC 31.7 g/dL (33.0-37.0); MEAN PLATELET VOLUME 7.4 fL (7.2-11.7); MONO # 0.6 K/uL (0.0-0.8); NEUT % 47.4 % (50.0-75.0); NRBC % 0.1 % (0.0-2.0); RBC 4.6 Mil/uL (3.80-5.20); RED CELL DISTRIBUTION WIDTH 14.7 % (11.5-14.5); WHITE BLOOD COUNT 6.3 K/uL (4.8-10.8)
--- NOTE | 2018-05-01 17:16 | C.PDOC ---
History Of Present Illness 53 y/o female presents to ED with c/o left sided sharp chest pain for 2 days. Patient also c/o nasal congestion, states she is on amoxicillin already by PMD. Patient denies fever, chills, sob, nausea, vomiting or any other complaints at this time. Time Seen by Provider: 05/01/18 16:12 Chief Complaint (Nursing): Chest Pain History Per: Patient History/Exam Limitations: no limitations Onset/Duration Of Symptoms: Days Current Symptoms Are (Timing): Still Present Past Medical History Reviewed: Historical Data, Nursing Documentation, Vital Signs Vital Signs: Last Vital Signs Temp 98.3 F 05/01/18 16:05 Pulse 62 05/01/18 16:05 Resp 18 05/01/18 16:05 BP 129/84 05/01/18 16:05 Pulse Ox 100 05/01/18 16:05 - Medical History PMH: Anemia, Anxiety, Arthritis, Asthma, Back Problems, Depression, Diverticulitis, Fractures (R ankle, with hardware), Gastritis, Hiatal Hernia, HTN, Hypercholesterolemia, Migraine, Sleep Apnea, TIA (May 2017) Surgical History: Cholecystectomy, Endoscopy - [facility] Procedures RADICAL EXCIS SKIN LES (08/18/14) Family History: States: No Known Family Hx - Social History Hx Tobacco Use: Yes Hx Alcohol Use: No (socially) Hx Substance Use: No - Immunization History Hx Tetanus Toxoid Vaccination: No Hx Influenza Vaccination: Yes (2017) Hx Pneumococcal Vaccination: No Review Of Systems Except As Marked, All Systems Reviewed And Found Negative. Constitutional: Negative for: Fever, Chills ENT: Positive for: Nose Congestion Cardiovascular: Positive for: Chest Pain Respiratory: Negative for: Cough, Shortness of Breath Skin: Negative for: Rash Physical Exam - Physical Exam Additional Physical Exam Comments: Constitutional: No acute distress. Head: Sinus tenderness Eyes: PERRL. ENT: Moist mucous membranes. Neck: Supple. Cardiovascular: Regular rate. Radial pulse 2+ bilaterally. Chest: No tenderness. Respiratory: Clear to auscultation bilaterally. GI: Soft. Nontender. Nondistended. Back: No CVA tenderness. Musculoskeletal: No tenderness or swelling of extremities. Skin: No rash. Neurologic: Alert, no focal deficit ED Course And Treatment - Laboratory Results Result Diagrams: 05/01/18 16:56 05/01/18 16:56 ECG: Interpreted By Me, Viewed By Me ECG Rhythm: Sinus Rhythm Rate From EC (BPM) O2 Sat by Pulse Oximetry: 100 (RA) Pulse Ox Interpretation: Normal Medical Decision Making Medical Decision Making: Plan: CXR, ECG, Blood work ordered. ECG: NSR @60 BPM, NO st/t wave changes CXR: IMPRESSION: No active pulmonary disease. Disposition - Disposition Disposition: HOME/ ROUTINE Disposition Time: 17:24 Condition: STABLE Prescriptions: Guaifenesin [Mucinex] 1,200 mg PO Q12H #18 tab.er.12h Instructions: Chest Pain That Is Not Caused by the Heart (DC) Forms: [employer] (Libyan) - Clinical Impression Clinical Impression: Chest discomfort, Sinus headache - Scribe Statement The provider has reviewed the documentation as recorded by the Sadieibabdiel Shook All medical record entries made by the Sadieibabdiel were at my direction and personally dictated by me. I have reviewed the chart and agree that the record accurately reflects my personal performance of the history, physical exam, medical decision making, and the department course for this patient. I have also personally directed, reviewed, and agree with the discharge instructions and disposition.
[2018-05-01 17:17] LABS: ALB/GLOB RATIO 1.2 (1.0-2.1); ALBUMIN 4.3 g/dL (3.5-5.0); BLOOD UREA NITROGEN 18 mg/dL (7-17); CALCIUM 9.3 mg/dl (8.6-10.4); GFR NON-AFRICAN AMERICAN 58
[2018-05-01 17:20] LABS: ALT/SGPT 46 U/L (9-52); AST/SGOT 43 U/L (14-36)
--- NOTE | 2018-05-01 17:21 | RAD ---
Date of service: 05/01/2018 HISTORY: Chest pain COMPARISON: 12/11/2017. TECHNIQUE: Chest PA and lateral FINDINGS: LINES AND TUBES: None. LUNG AND PLEURA: The lungs are well inflated and clear. No pleural effusion or pneumothorax. HEART AND MEDIASTINUM: The heart is not enlarged. No aortic atherosclerotic calcification present. The hilar and mediastinal contours are within normal limits. SKELETAL STRUCTURES: The bony structures are within normal limits for the patient's age. VISUALIZED UPPER ABDOMEN: Normal. OTHER FINDINGS: None. IMPRESSION: No active pulmonary disease.
[2018-05-01 17:23] LABS: CK-MB 0.87 ng/mL (0.0-3.38)
[2018-05-01 17:34] VITALS: BP 128/83; PULSE 65; TEMP 98.7; O2SAT 99
--- NOTE | 2018-05-02 23:52 | CARD ---
APPROVED REPORT Date of service: 05/01/2018 EKG Measurement Heart [id number] ID [id number] <Conclusion> Normal sinus rhythm Incomplete right bundle branch block Borderline ECG
== END 2018-05-01 17:41 | disposition home or self-care (01) ==
LOC: C.ER 15:57
DX: R07.89 Other chest pain (principal); R51 Headache; I10 Essential (primary) hypertension; E78.00 Pure hypercholesterolemia, unspecified; Z72.0 Tobacco use; Z86.73 Personal history of transient ischemic attack (TIA), and cerebral infarction without residual deficits

== ENCOUNTER 2018-05-29 09:25 | Emergency (ER) | payer OTHER ==
[2018-05-29 09:25] VITALS: BMI 33.2
--- NOTE | 2018-05-29 09:36 | C.PDOC ---
History Of Present Illness Patient reports two day history of fever and left ear pain. Reports that the ear pain is getting so severe that she is developing a left sided headache. She also complains of a runny nose and congestion, states she has sinus issues. Also reports L leg pain but reports herniated disks in her back, so this is not new. Time Seen by Provider: 05/29/18 09:36 Chief Complaint (Nursing): ENT Problem Past Medical History Reviewed: Historical Data, Nursing Documentation, Vital Signs - Medical History PMH: Anemia, Anxiety, Arthritis, Asthma, Back Problems, Depression, Diverticulitis, Fractures (R ankle, with hardware), Gastritis, Hiatal Hernia, HTN, Hypercholesterolemia, Migraine, Sleep Apnea, TIA (May 2017) Denies: HIV, Chronic Kidney Disease Surgical History: Cholecystectomy, Endoscopy - [facility] Procedures RADICAL EXCIS SKIN LES (08/18/14) Family History: States: Unknown Family Hx - Social History Hx Tobacco Use: Yes Hx Alcohol Use: No (socially) Hx Substance Use: No - Immunization History Hx Tetanus Toxoid Vaccination: No Hx Influenza Vaccination: Yes (2018) Hx Pneumococcal Vaccination: No Review Of Systems Except As Marked, All Systems Reviewed And Found Negative. Constitutional: Positive for: Fever ENT: Positive for: Ear Pain, Nose Congestion. Negative for: Ear Discharge, Throat Pain, Throat Swelling Cardiovascular: Negative for: Chest Pain Respiratory: Negative for: Cough, Shortness of Breath Gastrointestinal: Negative for: Nausea, Vomiting, Abdominal Pain, Diarrhea Genitourinary: Negative for: Dysuria Neurological: Negative for: Altered Mental Status Physical Exam - Physical Exam Appears: Well, Non-toxic, No Acute Distress Skin: Normal Color, Warm, Dry Head: Atraumatic, No Tenderness Eye(s): bilateral: Normal Inspection Ear(s): Bilateral: TM Obscured By Wax Oral Mucosa: Moist Chest: Symmetrical Cardiovascular: Rhythm Regular Respiratory: Normal Breath Sounds Gastrointestinal/Abdominal: Normal Exam Extremity: Normal ROM Neurological/Psych: Oriented x3 Gait: Steady Medical Decision Making Medical Decision Making: L TM obscured by wax but given ear pain and fever, will treat for otitis media. Disposition - Disposition Disposition: HOME/ ROUTINE Disposition Time: 09:39 Condition: STABLE Additional Instructions: PENNY SAVAGE, thank you for letting us take care of you today. Your provider was Susan Sáncehz MD and you were treated for LT SIDE EAR/HEAD PAIN. The emergency medical care you received today was directed at your acute symptoms. If you were prescribed any medication, please fill it and take as directed. It may take several days for your symptoms to resolve. Return to the Emergency Department if your symptoms worsen, do not improve, or if you have any other problems. Please contact your doctor or call one of the physicians/clinics you have been referred to that are listed on the Patient Visit Information form that is included in your discharge packet. Bring any paperwork you were given at discharge with you along with any medications you are taking to your follow up visit. Our treatment cannot replace ongoing medical care by a primary care provider outside of the emergency department. Thank you for allowing the [facility] team to be part of your care today. If you had an X-Ray or CT scan: A Radiologist will review the ED reading if any change in treatment is needed we will contact you. If you had a blood, urine, or wound culture: It will take several days for the results, if any change in treatment is needed we will contact you. If you had an STI test: It will take 48 hours for the results. Please call after 1 week if you have not heard back. Forms: [employer] ([place]) - Clinical Impression Clinical Impression: Otitis media
[2018-05-29 12:53] VITALS: BP 122/80; PULSE 76; RESP 18; TEMP 97.9; O2SAT 100
== END 2018-05-29 10:18 | disposition home or self-care (01) ==
LOC: C.ER 09:25
DX: H66.90 Otitis media, unspecified, unspecified ear (principal); E78.00 Pure hypercholesterolemia, unspecified; I10 Essential (primary) hypertension; Z72.0 Tobacco use

== ENCOUNTER 2018-08-09 21:12 | Observation (INO) | payer OTHER ==
[2018-08-09 21:13] VITALS: BMI 33.2
--- NOTE | 2018-08-09 21:39 | C.PDOC ---
History Of Present Illness 53 y/o female pt with hx of TIA, HTN, anxiety and HLD presents to the ER c/o feeling sluggish and "weak on the left side" since this morning. Pt reports at this time, symptoms has improved. pt poor historian. leonard elaborate on her s ymptoms exactly. Pt denied fever and any other associated sx or complaints at this time. Time Seen by Provider: 08/09/18 21:20 Chief Complaint (Nursing): Weakness/Neurological Deficit History Per: Patient History/Exam Limitations: no limitations Onset/Duration Of Symptoms: Hrs Current Symptoms Are (Timing): Better Past Medical History Reviewed: Historical Data, Nursing Documentation, Vital Signs Vital Signs: Last Vital Signs Temp 97.7 F 08/09/18 21:21 Pulse 99 H 08/09/18 21:21 Resp 18 08/09/18 21:21 BP 130/89 08/09/18 21:21 Pulse Ox 99 08/09/18 21:21 - Medical History PMH: Anemia, Anxiety, Arthritis, Asthma, Back Problems, Depression, Diverticulitis, Fractures (R ankle, with hardware), Gastritis, Hiatal Hernia, HTN, Hypercholesterolemia, Migraine, Sleep Apnea, TIA (May 2017) Surgical History: Cholecystectomy, Endoscopy - [facility] Procedures RADICAL EXCIS SKIN LES (08/18/14) Family History: States: Unknown Family Hx - Social History Hx Tobacco Use: Yes Hx Alcohol Use: No (socially) Hx Substance Use: No - Immunization History Hx Tetanus Toxoid Vaccination: No Hx Influenza Vaccination: Yes (2018) Hx Pneumococcal Vaccination: No Review Of Systems Except As Marked, All Systems Reviewed And Found Negative. Constitutional: Positive for: Other (feeling sluggish on left side ) Neurological: Positive for: Weakness (on left side ) Physical Exam - Physical Exam Appears: Non-toxic, No Acute Distress Skin: Warm, Dry Head: Normacephalic Eye(s): bilateral: Normal Inspection, PERRL, EOMI Oral Mucosa: Moist Throat: Normal Neck: Normal ROM, Supple Chest: Symmetrical Cardiovascular: Rhythm Regular Respiratory: Normal Breath Sounds, No Rales, No Rhonchi, No Wheezing Gastrointestinal/Abdominal: Soft, No Tenderness Back: No CVA Tenderness Extremity: Normal ROM (x4) Neurological/Psych: Oriented x3, Normal Speech, Normal Cognition, Normal Motor, Normal Sensation ED Course And Treatment - Laboratory Results Result Diagrams: 08/09/18 21:38 08/09/18 21:38 ECG: Interpreted By Me, Viewed By Me ECG Rhythm: Sinus Bradycardia, 1st Degree HB (AV) Rate From EC O2 Sat by Pulse Oximetry: 99 (RA) Pulse Ox Interpretation: Normal NIHSS Stroke Scale 2 - Date/Time Evaluation Performed Date Performed: 08/09/18 Time Performed: 23:25 - How Severe is the Stroke Level of Consciousness: 0=Alert LOC to Questions: 0=Both comments correct LOC to commands: 0=Obeys both correctly Best Gaze: 0=Normal Visual: 0=No visual loss Facial: 0=Normal Motor Arm - Left: 0=No drift Motor Arm - Right: 0=No drift Motor Leg - Left: 0=No drift Motor Leg - Right: 0=No drift Limb Ataxia: 0=Absent Sensory: 0=Normal Best Language: 0=No aphasia Dysarthia: 0=Normal articulation Extinction & Inattention (Neglect): 0=Normal, no object Score: 0 rTPA Inclusion/Exclusion - Refusal of Treatment Patient Refused Treatment: No - Inclusion Criteria for Altepase Patient is 18 years or Older: Yes The Clinical Diagnosis of Ischemic Stroke That is Causing a Potentially Disa keya Neurological Deficit: No Time of Onset is Well Established to be Less Than 270 Minute Before Treatment Would Begin: No Risk/Benefit Discussed With Patient/Family Member Present: No Medical Decision Making Medical Decision Making: ?left sided weakness/"heaviness" - plans: -- chem labs -- blood work -- EKG -- CT head -- IV fluids case idscussed with dr hickman quality assurance monitor. no tpa canadiate nih 0. symptoms improved. pt on asa. recommends plavix. admission. dr hopkins accepts Disposition - Disposition Disposition: HOSPITALIZED Disposition Time: 23:26 Condition: STABLE - Clinical Impression Clinical Impression: Weakness - Scribe Statement The provider has reviewed the documentation as recorded by the [place] Do Provider Attestation: All medical record entries made by the Scribe were at my direction and personally dictated by me. I have reviewed the chart and agree that the record accurately reflects my personal performance of the history, physical exam, [facility] decision making, and the department course for this patient. I have also personally directed, reviewed, and agree with the discharge instructions and disposition.
[2018-08-09 21:44] LABS: BASO # 0.1 K/uL (0.0-0.2); BASO % 0.9 % (0.0-2.0); EOS # 0.2 K/uL (0.0-0.7); EOS % 2.4 % (0.0-4.0); HEMOGLOBIN 11.8 g/dL (11.0-16.0); LYMPH # 3.3 K/uL (1.0-4.3); LYMPH % 47.1 % (20.0-40.0); MEAN CORPUSCULAR HEMOGLOBIN 24.3 pg (27.0-31.0); MEAN CORPUSCULAR HGB CONC 31.6 g/dL (33.0-37.0); MEAN PLATELET VOLUME 7.6 fL (7.2-11.7); MONO # 0.6 K/uL (0.0-0.8); MONO % 8.8 % (0.0-10.0); NEUT # 2.8 K/uL (1.8-7.0); NEUT % 40.8 % (50.0-75.0); NRBC % 0.1 % (0.0-2.0); RBC 4.87 Mil/uL (3.80-5.20); RED CELL DISTRIBUTION WIDTH 14.9 % (11.5-14.5); WHITE BLOOD COUNT 6.9 K/uL (4.8-10.8)
[2018-08-09 21:52] LABS: INR 1.2
[2018-08-09 21:56] LABS: ALB/GLOB RATIO 1.3 (1.0-2.1); ALBUMIN 4.7 g/dL (3.5-5.0); ALT/SGPT 20 U/L (9-52); AST/SGOT 21 U/L (14-36); BLOOD UREA NITROGEN 13 mg/dL (7-17); GFR NON-AFRICAN AMERICAN > 60; HDL CHOLESTEROL 76 mg/dL (30-70)
[2018-08-09] MEDS ORDERED: Sodium Chloride 0.9% 1,000 ML ONE ×2 (21:57)
[2018-08-09] MEDS: Sodium Chloride 0.9% 1,000 ML IV SCH (22:05)
[2018-08-09 22:07] LABS: LDL CHOLESTEROL 73 mg/dL (0-129)
[2018-08-09 23:44] LABS: SQUAMOUS EPITHIAL 5 /hpf (0-5); URINE BILIRUBIN NEGATIVE (NEGATIVE); URINE BLOOD NEGATIVE (NEGATIVE); URINE CLARITY Clear (Clear); URINE COLOR Straw (YELLOW); URINE GLUCOSE (UA) NORMAL (Normal); URINE LEUKOCYTE ESTERASE NEG Leu/uL (Negative); URINE PROTEIN NEGATIVE (NEGATIVE); URINE UROBILINOGEN NORMAL mg/dL (0.2-1.0)
[2018-08-09 23:48] LABS: HCG,QUALITATIVE URINE NEGATIVE (NEGATIVE)
--- NOTE | 2018-08-10 06:57 | RAD ---
Chest x-ray single frontal view History: Code stroke. Comparison: 05/01/2018 Findings: Mild venous congestion. Enlarged ectatic aorta. Cardiomegaly. Degenerative changes in the spine. Impression: Mild venous congestion. Enlarged ectatic aorta. Cardiomegaly.
--- NOTE | 2018-08-10 07:55 | CT ---
Date of service: 08/09/2018 PROCEDURE: CT HEAD WITHOUT CONTRAST. HISTORY: Code Stroke COMPARISON: None available. TECHNIQUE: Axial computed tomography images were obtained through the head/brain without intravenous contrast. Radiation dose: Total exam DLP = 1255.98 mGy-cm. This CT exam was performed using one or more of the following dose reduction techniques: Automated exposure control, adjustment of the mA and/or kV according to patient size, and/or use of iterative reconstruction technique. FINDINGS: HEMORRHAGE: No intracranial hemorrhage. BRAIN: No mass effect or edema. No atrophy or chronic microvascular ischemic changes. 6 millimeter rounded calcified focus at the high left frontal region abutting the inner calvarium on series 602, image 53 and series 2, image 28 which may represent a small calcified meningioma. VENTRICLES: Unremarkable. No hydrocephalus. CALVARIUM: Unremarkable. PARANASAL SINUSES: Unremarkable as visualized. No significant inflammatory changes. MASTOID AIR CELLS: Unremarkable as visualized. No inflammatory changes. OTHER FINDINGS: None. IMPRESSION: No acute intracranial abnormality. Additional findings as above. If symptoms persists, consider correlation with MRI. A preliminary report was generated at 9:45 p.m. on 08/09/[address] Fahad Dao from [facility].
[2018-08-10] MEDS: Sodium Chloride 0.9% 1,000 ML IV SCH ×3 (08:00→20:42)
--- NOTE | 2018-08-10 08:24 | CP.PCM.CON ---
History of Present Illness - History of Present Illness History of Present Illness: I was asked to see patient by Dr Powell Patient seen 08/10/18 824 Patient ius a 53 year old female with HTN, hypercholesterolemia previos TIA who presents with leg pain. Patient describes left leg pain, and states it has been sharp, constant. Pain is located in the left calf. The patient states she ahs corresponding left arm pain. She has previous admissions for chest pain. Stress test performed last year was negative for myocardial ischemia. Review of Systems - Constitutional Constitutional: absent: As Per HPI, Anorexia, Chills, Daytime Sleepiness, Excessive Sweating, Fatigue, Fever, Frequent Falls, Headache, Increased Appetite, Lethargy, Malaise, Night Sweats, Snoring, Sleep Apnea, Weight Gain, Weight Loss, Weakness, Other - EENT Eyes: absent: As Per HPI, Blind Spots, Blurred Vision, Change in Vision, Decreased Night Vision, Diplopia, Discharge, Dry Eye, Exophthalmos, Floaters, Irritation, Itchy Eyes, Loss of Peripheral Vision, Pain, Photophobia, Requires Corrective Lenses, Sees Flashes, Spots in Vision, Tunnel Vision, Other Visual Disturbances, Loss of Vision, Other Ears: absent: As Per HPI, Decreased Hearing, Ear Discharge, Ear Pain, Tinnitus, Abnormal Hearing, Disequilibrium, Dizziness, Other Nose/Mouth/Throat: absent: As Per HPI, Epistaxis, Nasal Congestion, Nasal Discharge, Nasal Obstruction, Nasal Trauma, Nose Pain, Post Nasal Drip, Sinus Pain, Sinus Pressure, Bleeding Gums, Change in Voice, Dental Pain, Dry Mouth, Dysphagia, Halitosis, Hoarsness, Lip Swelling, Mouth Lesions, Mouth Pain, Odynophagia, Sore Throat, Throat Swelling, Tongue Swelling, Facial Pain, Neck Pain, Neck Mass, Other - Cardiovascular Cardiovascular: absent: As Per HPI, Acrocyanosis, Chest Pain, Chest Pain at Rest, Chest Pain with Activity, Claudication, Diaphoresis, Dyspnea, Dyspnea on Exertion, Edema, Irregular Heart Rhythm, Pain Radiating to Arm/Neck/Jaw, Leg Edema, Leg Ulcers, Lightheadedness, Orthopnea, Palpitations, Paroxysmal Nocturnal Dyspnea, Pedal Edema, Radiating Pain, Rapid Heart Rate, Slow Heart Rate, Syncope, Other - Respiratory Respiratory: absent: As Per HPI, Cough, Dyspnea, Hemoptysis, Dyspnea on Exertion, Wheezing, Snoring, Stridor, Pain on Inspiration, Chest Congestion, Excessive Mucous Production, Change in Mucous Color, Pain with Coughing, Other - Gastrointestinal Gastrointestinal: absent: As Per HPI, Abdominal Pain, Belching, Bloating, Change in Bowel Habits, Change in Stool Character, Coffee Ground Emesis, Constipation, Cramping, Diarrhea, Dyspepsia, Dysphagia, Early Satiety, Excessive Flatus, Fecal Incontinence, Heartburn, Hematemesis, Hematochezia, Loose Stools, Melena, Nausea, Odynophagia, Temesmus, Vomiting, Other - Genitourinary Genitourinary: absent: As Per HPI, Change in Urinary Stream, Difficulty Urinating, Dysuria, Flank Pain, Hematuria, Pyuria, Nocturia, Urinary Incontinence, Urinary Frequency, Urinary Hesitance, Urinary Urgency, Voiding Freq/Small Amts, Freq UTI, Hx Renal/Bladder Calculi, Hx /Renal Surgery, Bladder Distension, Other - Musculoskeletal Musculoskeletal: absent: As Per HPI, Abnormal Gait, Arthralgias, Atrophy, Back Pain, Deformity, Joint Swelling, Limited Range of Motion, Loss of Height, Muscle Cramps, Muscle Weakness, Myalgias, Neck Pain, Numbness, Radiating Pain into Limb, Stiffness, Tingling, Other - Integumentary Integumentary: absent: As Per HPI, Acne, Alopecia, Bleeding Lesions, Change in Hair, Change in Nails, Change in Pigmentation, Changing Lesions, Dry Skin, Erythema, Furuncle, Hirsutism, Lesions, New Lesions, Non-Healing Lesions, Photosensitivity, Pruritus, Rash, Skin Pain, Skin Ulcer, Sores, Striae, Swelling, Unusual Bruising, Wounds, Jaundice, Other - Neurological Neurological: absent: As Per HPI, Abnormal Gait, Abnormal Hearing, Abnormal Movements, Abnormal Speech, Behavioral Changes, Burning Sensations, Confusion, Convulsions, Disequilibrium, Dizziness, Numbness, Focal Weakness, Frequent Fa lls, Headaches, Lack of Coordination, Loss of Vision, Memory Loss, Paresthesias, Radicular Pain, Restless Legs, Sensory Deficit, Syncope, Tingling, Tremor, Vertigo, Weakness, Other Visual Disturbances, Other - Psychiatric Psychiatric: absent: As Per HPI, Abnormal Sleep Pattern, Anhedonia, Anxiety, Auditory Hallucinations, Behavioral Changes, Change in Appetite, Change in Libido, Confusion, Depression, Difficulty Concentrating, Hallucinations, Homicidal Ideation, Hopelessness, Irritability, Memory Loss, Mood Swings, Panic Attacks, Paranoia, Suicidal Ideation, Visual Hallucinations, Tactile Hallucinations, Other - Endocrine Endocrine: absent: As Per HPI, Change in Body Appearance, Change in Libido, Cold Intolorance, Deepening of Voice, Excessive Sweating, Fatigue, Flushing, Heat Intolorance, Increase in Ring/Shoe/Hat Size, Palpitations, Polydipsia, Polyphagia, Polyuria, Other - Hematologic/Lymphatic Hematologic: absent: As Per HPI, Easy Bleeding, Easy Bruising, Lymphadenopathy, Other Past Patient History - Infectious Disease Hx of Infectious Diseases: None - Past Medical History & Family History Past Medical History?: Yes - Past Social History Smoking Status: Never Smoked - CARDIAC Hx Hypercholesterolemia: Yes Hx Hypertension: Yes - PULMONARY Hx Asthma: Yes Hx Sleep Apnea: Yes - NEUROLOGICAL Hx Migraine: Yes Hx Transient Ischemic Attacks (TIA): Yes (May 2017) - HEENT Hx HEENT Problems: No - RENAL Hx Chronic Kidney Disease: No - ENDOCRINE/METABOLIC Hx Endocrine Disorders: No - HEMATOLOGICAL/ONCOLOGICAL Hx Anemia: Yes - INTEGUMENTARY Hx Dermatological Problems: No Other/Comment: ARTISTIC TATTOOS TO BOTH UPPER EXTREMITIES - MUSCULOSKELETAL/RHEUMATOLOGICAL Hx Arthritis: Yes Hx Fractures: Yes (R ankle, with hardware) - GASTROINTESTINAL Hx Diverticulitis: Yes Hx Gastritis: Yes - GENITOURINARY/GYNECOLOGICAL Hx Genitourinary Disorders: No - PSYCHIATRIC Hx Anxiety: Yes Hx Depression: Yes Hx Substance Use: No - SURGICAL HISTORY Hx Cholecystectomy: Yes - ANESTHESIA Hx Anesthesia: Yes Hx Anesthesia Reactions: No Hx Malignant Hyperthermia: No Meds Allergies/Adverse Reactions: Allergies Allergy/AdvReac Type Severity Reaction Status Date / Time No Known Allergies Allergy Verified 08/09/18 21:21 - Medications Medications: Current Medications Aspirin (Ecotrin) 325 mg PO DAILY [facility] Enoxaparin Sodium (Lovenox) 40 mg SC DAILY [facility] Sodium Chloride (Sodium Chloride 0.9%) 1,000 mls @ 100 mls/hr IV .Q10H [facility] Last Admin: 08/09/18 22:05 Dose: 100 mls/hr Potassium Chloride (Potassium Chloride 10 Meq/100 Ml) 10 meq in 100 mls @ 100 mls/hr IVPB Q2 [facility] Stop: 08/10/18 10:59 Rosuvastatin Calcium (Crestor) 10 mg PO HS [facility] Physical Exam - Constitutional Appears: Non-toxic - Head Exam Head Exam: NORMAL INSPECTION - Eye Exam Eye Exam: Normal appearance - ENT Exam ENT Exam: Mucous Membranes Moist, Normal Exam - Neck Exam Neck exam: Positive for: Full Rom, Normal Inspection. Negative for: Lymphadenopathy, Tenderness, Thyromegaly - Respiratory Exam Respiratory Exam: Clear to Auscultation Bilateral, NORMAL BREATHING PATTERN. absent: Rales, Rhonchi, Wheezes, Respiratory Distress, Stridor - Cardiovascular Exam Cardiovascular Exam: REGULAR RHYTHM, RRR, +S1, +S2 - GI/Abdominal Exam GI & Abdominal Exam: Normal Bowel Sounds. absent: Diminished Bowel Sounds - Rectal Exam Rectal Exam: Deferred - Extremities Exam Extremities exam: Positive for: normal inspection. Negative for: pedal edema - Back Exam Back exam: NORMAL INSPECTION - Neurological Exam Neurological exam: Alert, Normal Gait, Oriented x3 - Psychiatric Exam Psychiatric exam: Normal Affect, Normal Mood - Skin Skin Exam: Normal Color Results - Vital Signs Recent Vital Signs: Last Vital Signs Temp 97.8 F 08/09/18 23:51 Pulse 57 L 08/10/18 04:37 Resp 16 08/09/18 23:51 BP 111/73 08/09/18 23:51 Pulse Ox 100 08/09/18 23:51 - Labs Result Diagrams: 08/09/18 21:38 08/09/18 21:38 Labs: Laboratory Results - last 24 hr 08/09/18 08/09/18 08/09/18 21:26 21:38 21:38 WBC 6.9 RBC 4.87 Hgb 11.8 Hct 37.5 MCV 77.0 L MCH 24.3 L MCHC 31.6 L RDW 14.9 H Plt Count 312 MPV 7.6 Neut % (Auto) 40.8 L Lymph % (Auto) 47.1 H Forrest % (Auto) 8.8 Eos % (Auto) 2.4 Baso % (Auto) 0.9 Neut # (Auto) 2.8 Lymph # (Auto) 3.3 Forrest # (Auto) 0.6 Eos # (Auto) 0.2 Baso # (Auto) 0.1 PT 13.0 H INR 1.2 APTT 39 H Sodium Potassium Chloride Carbon Dioxide Anion Gap BUN Creatinine Est GFR ( Amer) Est GFR (Non-Af Amer) POC Glucose (mg/dL) 118 H Random Glucose Hemoglobin A1c Calcium Total Bilirubin AST ALT Alkaline Phosphatase Troponin I Total Protein Albumin Globulin Albumin/Globulin Ratio Triglycerides Cholesterol LDL Cholesterol Direct HDL Cholesterol Urine Color Urine Clarity Urine pH Ur Specific [place] Urine Protein Urine Glucose (UA) Urine Ketones Urine Blood Urine Nitrate Urine Bilirubin Urine Urobilinogen Ur Leukocyte Esterase Urine WBC (Auto) Urine RBC (Auto) Ur Squamous Epith Cells Urine HCG, Qual Blood Type Antibody Screen 08/09/18 08/09/18 08/09/18 21:38 21:38 21:38 WBC RBC Hgb Hct MCV MCH MCHC RDW Plt Count MPV Neut % (Auto) Lymph % (Auto) Forrest % (Auto) Eos % (Auto) Baso % (Auto) Neut # (Auto) Lymph # (Auto) Forrest # (Auto) Eos # (Auto) Baso # (Auto) PT INR APTT Sodium 142 Potassium 3.4 L Chloride 104 Carbon Dioxide 30 Anion Gap 12 BUN 13 Creatinine 0.9 Est GFR ( Amer) > 60 Est GFR (Non-Af Amer) > 60 POC Glucose (mg/dL) Random Glucose 105 D Hemoglobin A1c 6.1 Calcium 10.0 Total Bilirubin 0.3 AST 21 ALT 20 Alkaline Phosphatase 105 Troponin I < 0.0120 Total Protein 8.2 Albumin 4.7 Globulin 3.5 Albumin/Globulin Ratio 1.3 Triglycerides 65 D Cholesterol 170 LDL Cholesterol Direct 73 HDL Cholesterol 76 H Urine Color Urine Clarity Urine pH Ur Specific [place] Urine Protein Urine Glucose (UA) Urine Ketones Urine Blood Urine Nitrate Urine Bilirubin Urine Urobilinogen Ur Leukocyte Esterase Urine WBC (Auto) Urine RBC (Auto) Ur Squamous Epith Cells Urine HCG, Qual Blood Type O POSITIVE Antibody Screen Negative 08/09/18 23:35 WBC RBC Hgb Hct MCV MCH MCHC RDW Plt Count MPV Neut % (Auto) Lymph % (Auto) Forrest % (Auto) Eos % (Auto) Baso % (Auto) Neut # (Auto) Lymph # (Auto) Forrest # (Auto) Eos # (Auto) Baso # (Auto) PT INR APTT Sodium Potassium Chloride Carbon Dioxide Anion Gap BUN Creatinine Est GFR ( Amer) Est GFR (Non-Af Amer) POC Glucose (mg/dL) Random Glucose Hemoglobin A1c Calcium Total Bilirubin AST ALT Alkaline Phosphatase Troponin I Total Protein Albumin Globulin Albumin/Globulin Ratio Triglycerides Cholesterol LDL Cholesterol Direct HDL Cholesterol Urine Color Straw Urine Clarity Clear Urine pH 7.0 Ur Specific [place] 1.009 Urine Protein Negative Urine Glucose (UA) Normal Urine Ketones Negative Urine Blood Negative Urine Nitrate Negative Urine Bilirubin Negative Urine Urobilinogen Normal Ur Leukocyte Esterase Neg Urine WBC (Auto) < 1 Urine RBC (Auto) 1 Ur Squamous Epith Cells 5 Urine HCG, Qual Negative Blood Type Antibody Screen - EKG Data EKG Interpreted by: Myself EKG shows normal: Sinus rhythm Assessment & Plan (1) TIA (transient ischemic attack) Assessment and Plan: current symptoms do not appear due to TIA. recommend antiplatelet therapy Status: Acute Priority: High (2) Hypercholesterolemia Assessment and Plan: statin therapy with goal LDL <100 Status: Acute (3) Hypertension Assessment and Plan: well controlled. schedule outpatient follow up Status: Chronic Priority: Medium
[2018-08-10] MEDS: Enoxaparin 40 mg Syringe SC SCH (10:22)
[2018-08-10] MEDS: Aspirin 325 mg EC Tablets PO SCH (10:24)
--- NOTE | 2018-08-10 13:05 | CP.PCM.CON ---
History of Present Illness - History of Present Illness History of Present Illness: Neurology Consultation Note: Consult requested by Dr. Gibbs Mrs. Yusuf is a 53-year-old woman with a previous history of TIA, HTN, anxiety and HLD presents to the ED yesterday complaining of generalized weakness, but worse on the left. This had started that morning, and then resolved by the time she was in the ED. Currently, does not have any focal deficits of complaints. CT scan of the head did not show any acute or concerning findings. She states that she was told that she has herniated discs in her cervical spine and had an MRI about 6 months ago that showed some progression. Review of Systems - Review of Systems All systems: reviewed and no additional remarkable complaints except Past Patient History - Infectious Disease Hx of Infectious Diseases: None - Past Medical History & Family History Past Medical History?: Yes - Past Social History Smoking Status: Never Smoked - CARDIAC Hx Hypercholesterolemia: Yes Hx Hypertension: Yes - PULMONARY Hx Asthma: Yes Hx Sleep Apnea: Yes - NEUROLOGICAL Hx Migraine: Yes Hx Transient Ischemic Attacks (TIA): Yes (May 2017) - HEENT Hx HEENT Problems: No - RENAL Hx Chronic Kidney Disease: No - ENDOCRINE/METABOLIC Hx Endocrine Disorders: No - HEMATOLOGICAL/ONCOLOGICAL Hx Anemia: Yes - INTEGUMENTARY Hx Dermatological Problems: No Other/Comment: ARTISTIC TATTOOS TO BOTH UPPER EXTREMITIES - MUSCULOSKELETAL/RHEUMATOLOGICAL Hx Arthritis: Yes Hx Fractures: Yes (R ankle, with hardware) - GASTROINTESTINAL Hx Diverticulitis: Yes Hx Gastritis: Yes - GENITOURINARY/GYNECOLOGICAL Hx Genitourinary Disorders: No - PSYCHIATRIC Hx Anxiety: Yes Hx Depression: Yes Hx Substance Use: No - SURGICAL HISTORY Hx Cholecystectomy: Yes - ANESTHESIA Hx Anesthesia: Yes Hx Anesthesia Reactions: No Hx Malignant Hyperthermia: No Meds Allergies/Adverse Reactions: Allergies Allergy/AdvReac Type Severity Reaction Status Date / Time No Known Allergies Allergy Verified 08/09/18 21:21 - Medications Medications: Current Medications Acetaminophen (Tylenol 325mg Tab) 650 mg PO Q4 PRN PRN Reason: pain Aspirin (Ecotrin) 325 mg PO DAILY [facility] Last Admin: 08/10/18 10:24 Dose: 325 mg Diazepam (Valium) 5 mg PO DAILY PRN PRN Reason: Anxiety Enoxaparin Sodium (Lovenox) 40 mg SC DAILY [facility] Last Admin: 08/10/18 10:22 Dose: 40 mg Gabapentin (Neurontin) 300 mg PO Q8 [facility] Sodium Chloride (Sodium Chloride 0.9%) 1,000 mls @ 100 mls/hr IV .Q10H [facility] Last Admin: 08/09/18 22:05 Dose: 100 mls/hr Nifedipine (Procardia Xl) 90 mg PO DAILY [facility] Rosuvastatin Calcium (Crestor) 10 mg PO HS [facility] Physical Exam - Constitutional Appears: Well - Head Exam Head Exam: ATRAUMATIC, NORMAL INSPECTION, NORMOCEPHALIC - Eye Exam Eye Exam: EOMI, Normal appearance, PERRL Pupil Exam: NORMAL ACCOMODATION, PERRL - ENT Exam ENT Exam: Mucous Membranes Moist, Normal Exam - Neck Exam Neck exam: Positive for: Normal Inspection - Respiratory Exam Respiratory Exam: Clear to Auscultation Bilateral, NORMAL BREATHING PATTERN - Cardiovascular Exam Cardiovascular Exam: REGULAR RHYTHM - GI/Abdominal Exam GI & Abdominal Exam: Normal Bowel Sounds, Soft. absent: Tenderness - Extremities Exam Extremities exam: Positive for: normal inspection - Back Exam Back exam: NORMAL INSPECTION - Neurological Exam Neurological exam: Alert, CN II-XII Intact, Normal Gait, Oriented x3, Reflexes Normal - Psychiatric Exam Psychiatric exam: Normal Affect, Normal Mood - Skin Skin Exam: Dry, Intact, Normal Color, Warm Results - Vital Signs Recent Vital Signs: Last Vital Signs Temp 97.8 F 08/09/18 23:51 Pulse 57 L 08/10/18 04:37 Resp 16 08/09/18 23:51 BP 111/73 08/09/18 23:51 Pulse Ox 100 08/09/18 23:51 - Labs Result Diagrams: 08/09/18 21:38 08/09/18 21:38 Labs: Laboratory Results - last 24 hr 08/09/18 08/09/18 08/09/18 21:26 21:38 21:38 WBC 6.9 RBC 4.87 Hgb 11.8 Hct 37.5 MCV 77.0 L MCH 24.3 L MCHC 31.6 L RDW 14.9 H Plt Count 312 MPV 7.6 Neut % (Auto) 40.8 L Lymph % (Auto) 47.1 H Page % (Auto) 8.8 Eos % (Auto) 2.4 Baso % (Auto) 0.9 Neut # (Auto) 2.8 Lymph # (Auto) 3.3 Page # (Auto) 0.6 Eos # (Auto) 0.2 Baso # (Auto) 0.1 PT 13.0 H INR 1.2 APTT 39 H Sodium Potassium Chloride Carbon Dioxide Anion Gap BUN Creatinine Est GFR ( Amer) Est GFR (Non-Af Amer) POC Glucose (mg/dL) 118 H Random Glucose Hemoglobin A1c Calcium Total Bilirubin AST ALT Alkaline Phosphatase Troponin I Total Protein Albumin Globulin Albumin/Globulin Ratio Triglycerides Cholesterol LDL Cholesterol Direct HDL Cholesterol Urine Color Urine Clarity Urine pH Ur Specific [place] Urine Protein Urine Glucose (UA) Urine Ketones Urine Blood Urine Nitrate Urine Bilirubin Urine Urobilinogen Ur Leukocyte Esterase Urine WBC (Auto) Urine RBC (Auto) Ur Squamous Epith Cells Urine HCG, Qual Blood Type Antibody Screen 08/09/18 08/09/18 08/09/18 21:38 21:38 21:38 WBC RBC Hgb Hct MCV MCH MCHC RDW Plt Count MPV Neut % (Auto) Lymph % (Auto) Page % (Auto) Eos % (Auto) Baso % (Auto) Neut # (Auto) Lymph # (Auto) Page # (Auto) Eos # (Auto) Baso # (Auto) PT INR APTT Sodium 142 Potassium 3.4 L Chloride 104 Carbon Dioxide 30 Anion Gap 12 BUN 13 Creatinine 0.9 Est GFR ( Amer) > 60 Est GFR (Non-Af Amer) > 60 POC Glucose (mg/dL) Random Glucose 105 D Hemoglobin A1c 6.1 Calcium 10.0 Total Bilirubin 0.3 AST 21 ALT 20 Alkaline Phosphatase 105 Troponin I < 0.0120 Total Protein 8.2 Albumin 4.7 Globulin 3.5 Albumin/Globulin Ratio 1.3 Triglycerides 65 D Cholesterol 170 LDL Cholesterol Direct 73 HDL Cholesterol 76 H Urine Color Urine Clarity Urine pH Ur Specific [place] Urine Protein Urine Glucose (UA) Urine Ketones Urine Blood Urine Nitrate Urine Bilirubin Urine Urobilinogen Ur Leukocyte Esterase Urine WBC (Auto) Urine RBC (Auto) Ur Squamous Epith Cells Urine HCG, Qual Blood Type O POSITIVE Antibody Screen Negative 08/09/18 23:35 WBC RBC Hgb Hct MCV MCH MCHC RDW Plt Count MPV Neut % (Auto) Lymph % (Auto) Page % (Auto) Eos % (Auto) Baso % (Auto) Neut # (Auto) Lymph # (Auto) Page # (Auto) Eos # (Auto) Baso # (Auto) PT INR APTT Sodium Potassium Chloride Carbon Dioxide Anion Gap BUN Creatinine Est GFR ( Amer) Est GFR (Non-Af Amer) POC Glucose (mg/dL) Random Glucose Hemoglobin A1c Calcium Total Bilirubin AST ALT Alkaline Phosphatase Troponin I Total Protein Albumin Globulin Albumin/Globulin Ratio Triglycerides Cholesterol LDL Cholesterol Direct HDL Cholesterol Urine Color Straw Urine Clarity Clear Urine pH 7.0 Ur Specific [place] 1.009 Urine Protein Negative Urine Glucose (UA) Normal Urine Ketones Negative Urine Blood Negative Urine Nitrate Negative Urine Bilirubin Negative Urine Urobilinogen Normal Ur Leukocyte Esterase Neg Urine WBC (Auto) < 1 Urine RBC (Auto) 1 Ur Squamous Epith Cells 5 Urine HCG, Qual Negative Blood Type Antibody Screen Assessment & Plan (1) Weakness Assessment and Plan: This could be due to hypokalemia or other metabolic disturbances. However, with the history of cervical spine disease and complaints of pain, not weakness now on the left leg and arm, I recommend obtaining an MRI of the cervical and thoracic spine without contrast. Thank you. Status: Acute
[2018-08-10] MEDS: NIFEdipine 90 mg ER Tab PO SCH (14:47)
[2018-08-10] MEDS: Potassium Chloride 20 mEq ER Tab PO SCH (20:41)
[2018-08-11] MEDS: Sodium Chloride 0.9% 1,000 ML IV SCH ×5 (04:30→23:35)
--- NOTE | 2018-08-11 09:13 | HP ---
HISTORY OF PRESENT ILLNESS: The patient is a 53-year-old female, admitted to the hospital with chief complaint of weakness, fatigue, and left-sided pain. The patient came to ER, advised admission. PHYSICAL EXAMINATION: GENERAL: The patient is awake, alert, and oriented. VITAL SIGNS: Temperature 98, pulse 90. HEENT: Within normal limits. NECK: Supple. CHEST: Symmetrical. HEART: Regular. ABDOMEN: Soft. EXTREMITIES: No edema. IMPRESSION AND PAIN: The patient to rule out transient ischemic attack, rule out cerebrovascular accident, . The patient is to get bed rest. Supportive care. Neurology consult. Marcella Powell MD
[2018-08-11] MEDS: Aspirin 325 mg EC Tablets PO SCH (09:46)
[2018-08-11] MEDS: Potassium Chloride 20 mEq ER Tab PO SCH (09:47)
[2018-08-11] MEDS: Enoxaparin 40 mg Syringe SC SCH (09:47)
[2018-08-11] MEDS: NIFEdipine 90 mg ER Tab PO SCH (09:47)
--- NOTE | 2018-08-11 10:24 | VASCLAB ---
Date of service: 08/11/2018 PROCEDURE: Carotid Duplex Exam. HISTORY: Hypertension; Hx of TIA COMPARISON: None available. TECHNIQUE: Grayscale and duplex Doppler evaluation of the cervical carotid and vertebral arteries were performed. The common carotid, carotid bifurcations and cervical Internal Carotid Artery (ICA) and proximal External Carotid Artery (ECA) were evaluated. The vertebral arteries were evaluated for gross patency and flow direction. Report prepared by VERONICA Vergara FINDINGS: RIGHT CAROTID ARTERIES: 1. Common Carotid Artery: No significant focal plaque formation of the right common carotid artery. Maximum Peak Systolic velocity: 81 cm/sec: End-diastolic velocity 19 cm/sec. 2. Carotid Bifurcation: plaque formation. Maximum Peak Systolic velocity: 70 cm/sec: End-diastolic velocity 18 cm/sec. 3. Internal Carotid Artery: Plaque description: 3.1. Proximal Segment: Peak systolic velocity 68 cm/sec: End-diastolic velocity 30 cm/sec - % stenosis 0-15% 3.2. Middle Segment: Peak systolic velocity 88 cm/sec: End-diastolic velocity 40 cm/sec - % stenosis 0-15% 3.3. Distal Segment: Peak systolic velocity 41 cm/sec: End-diastolic velocity 19 cm/sec - % stenosis 0-15% 4. External Carotid Artery: No significant focal plaque formation. Peak systolic velocity 60 cm/sec 5. ICA/CCA Ratio: 1.2 LEFT CAROTID ARTERIES: 1. Common Carotid Artery: No significant focal plaque formation of the left common carotid artery. Maximum Peak Systolic velocity: 93 cm/sec: End-diastolic velocity 27 cm/sec. 2. Carotid Bifurcation: plaque formation. Maximum Peak Systolic velocity: 51 cm/sec: End-diastolic velocity 20 cm/sec. 3. Internal Carotid Artery: Plaque description: 3.1. Proximal Segment: Peak systolic velocity 64 cm/sec: End-diastolic velocity 30 cm/sec - % stenosis 0-15% 3.2. Middle Segment: Peak systolic velocity 64 cm/sec: End-diastolic velocity 26 cm/sec - % stenosis 0-15% 3.3. Distal Segment: Peak systolic velocity 112 cm/sec: End-diastolic velocity 53 cm/sec - % stenosis 0-15% 4. External Carotid Artery: No significant focal plaque formation. Peak systolic velocity 43 cm/sec 5. ICA/CCA Ratio: 2.0 VERTEBRAL ARTERIES: 1. Right Vertebral Artery: The right vertebral artery flow direction is antegrade. 2. Left Vertebral Artery: The left vertebral artery flow direction is antegrade. OTHER FINDINGS: 1. Right Brachial Blood pressure: 115/80 mmHg. 2. Left Brachial Blood pressure: 110/80 mmHg. IMPRESSION: RIGHT: Duplex scan does not suggest hemodynamically significant stenosis of the right extracranial carotid arteries. LEFT: Duplex scan does not suggest hemodynamically significant stenosis of the left extracranial carotid arteries.
--- NOTE | 2018-08-11 11:32 | CP.PCM.PN ---
Subjective - Date & Time of Evaluation Date of Evaluation: 08/11/18 Time of Evaluation: 10:00 - Subjective Subjective: PGY2 Progress Note for Dr. Powell Patient seen and examined at bedside and in no acute distress. Patient still complaining of left arm and leg pain, but denies weakness. Patient refuses to get an MRI of the cervical and thoracic spine because she cannot tolerate it due to her claustrophobia. Patient says she will get an open MRI as an outpatient. Patient denies headache, chest pain, abdominal pain, nausea, vomiting, constipation, or diarrhea. Objective - Vital Signs/Intake and Output Vital Signs (last 24 hours): Temp Pulse Resp BP Pulse Ox 97.9 F 73 20 138/86 99 08/11/18 07:15 08/11/18 09:43 08/11/18 07:15 08/11/18 09:43 08/11/18 07:15 - Medications Medications: Current Medications Acetaminophen (Tylenol 325mg Tab) 650 mg PO Q4 PRN PRN Reason: pain Last Admin: 08/10/18 18:50 Dose: 650 mg Aspirin (Ecotrin) 325 mg PO DAILY [facility] Last Admin: 08/11/18 09:46 Dose: 325 mg Diazepam (Valium) 5 mg PO DAILY PRN PRN Reason: Anxiety Docusate Sodium (Colace) 100 mg PO DAILY [facility] Last Admin: 08/11/18 09:47 Dose: 100 mg Enoxaparin Sodium (Lovenox) 40 mg SC DAILY [facility] Last Admin: 08/11/18 09:47 Dose: 40 mg Famotidine (Pepcid) 20 mg PO DAILY [facility] Last Admin: 08/11/18 09:46 Dose: 20 mg Gabapentin (Neurontin) 300 mg PO Q8 [facility] Last Admin: 08/11/18 05:56 Dose: Not Given Sodium Chloride (Sodium Chloride 0.9%) 1,000 mls @ 100 mls/hr IV .Q10H [facility] Last Admin: 08/11/18 08:25 Dose: 100 mls/hr Nifedipine (Procardia Xl) 90 mg PO DAILY [facility] Last Admin: 08/11/18 09:47 Dose: 90 mg Potassium Chloride (K-Dur 20 Meq Er Tab) 20 meq PO DAILY [facility] Stop: 08/12/18 23:59 Last Admin: 08/11/18 09:47 Dose: 20 meq Rosuvastatin Calcium (Crestor) 10 mg PO HS [facility] Last Admin: 08/10/18 21:44 Dose: 10 mg Sucralfate (Carafate Tab) 1 gm PO TID [facility] Last Admin: 08/11/18 09:45 Dose: 1 gm Tramadol HCl (Ultram) 50 mg PO TID PRN PRN Reason: Pain, moderate (4-7) Last Admin: 08/10/18 20:40 Dose: 50 mg - Labs Labs: 08/09/18 21:38 08/09/18 21:38 PT 13.0 SECONDS (9.7-12.2) H 08/09/18 21:38 INR 1.2 08/09/18 21:38 APTT 39 SECONDS (21-34) H 08/09/18 21:38 - Constitutional Appears: Non-toxic, No Acute Distress - Head Exam Head Exam: ATRAUMATIC, NORMAL INSPECTION, NORMOCEPHALIC - Eye Exam Eye Exam: EOMI, Normal appearance - ENT Exam ENT Exam: Mucous Membranes Moist - Respiratory Exam Respiratory Exam: Clear to Ausculation Bilateral, NORMAL BREATHING PATTERN - Cardiovascular Exam Cardiovascular Exam: REGULAR RHYTHM, RRR, +S1, +S2 - GI/Abdominal Exam GI & Abdominal Exam: Soft, Normal Bowel Sounds. absent: Tenderness - Extremities Exam Extremities Exam: Normal Inspection. absent: Tenderness - Neurological Exam Neurological Exam: Alert, Awake, Oriented x3 - Psychiatric Exam Psychiatric exam: Normal Affect, Normal Mood - Skin Skin Exam: Intact, Normal Color, Warm Assessment and Plan - Assessment and Plan (Free Text) Assessment: Left Sided Weakness and Pain weakness resolved, pain still present hx of c spine disease patient refused closed MRI because of her claustrophobia, will need to follow up outpatient for an open MRI Head CT 08/09/18: no acute intracranial abnormality Carotid doppler: no hemodynamically significant stenosis of the right or left extracranial carotid arteries. meds: ASA 325mg po daily Neurontin 300mg po q8h Ultram 50mg po TID prn Anxiety Valium 5mg po daily prn HTN Procardia Xl 90mg po daily HLD Crestor 10mg po HS GERD Carafate 1gm po TID Prophylaxis Lovenox 40mg sc daily Pepcid 20mg po daily Patient stable for discharge. Patient will need to follow up with Neuro, Dr. Wick for open MRI to evaluate cervical and thoracic spine. Seen and discussed with Dr. Powell
[2018-08-11 14:49] LABS: ALB/GLOB RATIO 1.3 (1.0-2.1); ALBUMIN 3.6 g/dL (3.5-5.0); ALT/SGPT 22 U/L (9-52); AST/SGOT 27 U/L (14-36); BLOOD UREA NITROGEN 11 mg/dL (7-17); GFR NON-AFRICAN AMERICAN 58
[2018-08-11 16:23] VITALS: O2SAT 100
--- NOTE | 2018-08-11 17:13 | CARD ---
APPROVED REPORT Date of service: 08/09/2018 EKG Measurement Heart [id number] <Conclusion> Sinus bradycardia with 1st degree AV block Otherwise normal ECG
[2018-08-12] MEDS: Sodium Chloride 0.9% 1,000 ML IV SCH ×2 (07:31→10:07)
[2018-08-12 08:14] VITALS: BP 110/77; RESP 20; TEMP 97.6
[2018-08-12] MEDS ORDERED: Bisacodyl 5mg EC Tab PO ONE (08:30)
[2018-08-12] MEDS: Potassium Chloride 20 mEq ER Tab PO SCH (10:03)
[2018-08-12] MEDS: Aspirin 325 mg EC Tablets PO SCH (10:03)
[2018-08-12] MEDS: NIFEdipine 90 mg ER Tab PO SCH (10:04)
[2018-08-12] MEDS: Enoxaparin 40 mg Syringe SC SCH (10:04)
[2018-08-12 12:38] VITALS: PULSE 66
--- NOTE | 2018-08-12 16:25 | CP.PCM.PN ---
Subjective - Date & Time of Evaluation Date of Evaluation: 08/12/18 Time of Evaluation: 10:25 - Subjective Subjective: PGY2 Medicine Note for Dr. Powell Patient seen and examined this morning at bedside. No acute events overnight. Patient is feeling better today but is still experiencing some numbness some left sided numbness. Patient was supposed to be discharged yesterday but complained of right sided pain and shortness of breath. Right sided pain and shortness of breath have improved. Patient is speaking in full sentences on room air and is denying shortness of breath. Objective - Vital Signs/Intake and Output Vital Signs (last 24 hours): Temp Pulse Resp BP Pulse Ox 97.6 F 66 20 110/77 100 08/12/18 08:00 08/12/18 12:10 08/12/18 08:00 08/12/18 08:00 08/12/18 08:00 Intake and Output: 08/12/18 08/12/18 06:59 18:59 Intake Total 1900 Balance 1900 - Labs Labs: 08/09/18 21:38 08/11/18 14:18 PT 13.0 SECONDS (9.7-12.2) H 08/09/18 21:38 INR 1.2 08/09/18 21:38 APTT 39 SECONDS (21-34) H 08/09/18 21:38 - Constitutional Appears: Non-toxic, No Acute Distress - Head Exam Head Exam: ATRAUMATIC, NORMOCEPHALIC - Eye Exam Eye Exam: Normal appearance - ENT Exam ENT Exam: Mucous Membranes Moist - Neck Exam Neck Exam: absent: Lymphadenopathy, Tenderness - Respiratory Exam Respiratory Exam: Clear to Ausculation Bilateral, NORMAL BREATHING PATTERN. absent: Accessory Muscle Use, Rales, Rhonchi, Wheezes - Cardiovascular Exam Cardiovascular Exam: REGULAR RHYTHM, +S1 - GI/Abdominal Exam GI & Abdominal Exam: Soft. absent: Distended, Firm, Guarding, Rigid, Tenderness - Extremities Exam Extremities Exam: absent: Calf Tenderness, Pedal Edema - Neurological Exam Neurological Exam: Alert, Awake, Oriented x3 - Psychiatric Exam Psychiatric exam: Normal Affect, Normal Mood - Skin Skin Exam: Dry, Warm Assessment and Plan - Assessment and Plan (Free Text) Plan: Left Sided Weakness and Pain weakness resolved, pain still present hx of c spine disease patient refused closed MRI because of her claustrophobia, will need to follow up outpatient for an open MRI Head CT 08/09/18: no acute intracranial abnormality Carotid doppler: no hemodynamically significant stenosis of the right or left extracranial carotid arteries. meds: ASA 325mg po daily Neurontin 300mg po q8h Ultram 50mg po TID prn Anxiety Valium 5mg po daily prn HTN Procardia Xl 90mg po daily HLD Crestor 10mg po HS GERD Carafate 1gm po TID Prophylaxis Lovenox 40mg sc daily Pepcid 20mg po daily Dispo: Patient was discharged home on 08/12 with the following instructions: Patient stable for discharge. Patient to continue home medications. Patient to follow up with Dr. Wick to have open MRI of cervical and thoracic spine. Patient to follow up with Dr. Powell in 1 week. Patient to return if symptoms return. Patient explained instructions who understands and agrees. Seen and discussed with Dr. Sherry Hess Steve PGY2
--- NOTE | 2018-08-12 22:10 | CARD ---
APPROVED REPORT Date of service: 08/11/2018 EXAM: Two-dimensional and M-mode echocardiogram with Doppler and color Doppler. Other Information Quality : GoodRhythm : INDICATION CVA/TIA RISK FACTORS Hypertension Hyperlipidemia 2D DIMENSIONS IVSd1.0 (0.7-1.1cm)LVDd4.7 (3.9-5.9cm) PWd1.0 (0.7-1.1cm)LA [id number] (18-58mL) LVDs3.0 (2.5-4.0cm)FS (%) 35.7 % LVEF (%)65.1 (>50%)LVEF (Hood's)64.72 % M-Mode DIMENSIONS Left Atrium (MM)4.33 (2.5-4.0cm)IVSd1.02 (0.7-1.1cm) Aortic Root3.53 (2.2-3.7cm)LVDd5.61 (4.0-5.6cm) Aortic Cusp Exc.2.51 (1.5-2.0cm)PWd0.76 (0.7-1.1cm) FS (%) 42 %LVDs3.27 (2.0-3.8cm) LVEF (%)68 (>50%) Mitral Valve MV E Lqgjfsuc63.0cm/sMV A Ahzbgbpx12.6cm/sE/A ratio1.2 TDI Lateral E' Peak V9.32cm/sMedial E' Peak V6.35cm/sE/Lateral E'8.7 E/Medial E'12.8 Tricuspid Valve TR Peak [id number]/sTR Peak Gr.[id number] LEFT VENTRICLE The left ventricle is normal size. There is normal left ventricular wall thickness. Left ventricle systolic function is normal. The Ejection Fraction is 60-65%. There is normal LV segmental wall motion. The left ventricular diastolic function is normal. RIGHT VENTRICLE The right ventricle is normal size. There is normal right ventricular wall thickness. The right ventricular systolic function is normal. ATRIA The left atrium size is normal. The right atrium size is normal. The interatrial septum is intact with no evidence for an atrial septal defect. AORTIC VALVE The aortic valve is normal in structure. No aortic regurgitation is present. There is no aortic valvular stenosis. There is no aortic valvular vegetation. MITRAL VALVE The mitral valve is normal in structure. There is no evidence of mitral valve prolapse. There is no mitral valve stenosis. Mitral regurgitation is mild. TRICUSPID VALVE The tricuspid valve is normal in structure. There is mild tricuspid regurgitation. Right ventricular systolic pressure is estimated at less than 30 mmHg. There is no pulmonary hypertension. PULMONIC VALVE The pulmonic valve is not well visualized. There is mild pulmonic valvular regurgitation. GREAT VESSELS The aortic root is normal in size. PERICARDIAL EFFUSION There is no significant pericardial effusion. <Conclusion> Left ventricle systolic function is normal. The Ejection Fraction is 60-65%. No aortic regurgitation is present. Mitral regurgitation is mild. There is mild tricuspid regurgitation. There is no pulmonary hypertension. There is mild pulmonic valvular regurgitation.
--- NOTE | 2018-08-13 22:46 | CARD ---
APPROVED REPORT Date of service: 08/11/2018 EKG Measurement Heart [id number] <Conclusion> Sinus bradycardia Otherwise normal ECG
--- NOTE | 2018-08-16 17:10 | DS ---
The patient was admitted to the hospital with chief complaint of left leg pain. The patient was placed on bedrest. She needs possible cervical radiculopathy. The patient was advised to follow up with pain management as outpatient for evaluation of her cervical pain. DIAGNOSIS: Rule out cervical radiculopathy. Marcella Powell MD
== END 2018-08-12 14:10 | disposition home or self-care (01) ==
LOC: SUPCPDRO 21:12 → C.ER 21:12 → C.9E 22:12 → C.5S 23:00
PROVIDERS: ADMIT Internal Medicine Pulmonary Disease; ATTEND Internal Medicine Pulmonary Disease
DX: M79.605 Pain in left leg (principal); E78.00 Pure hypercholesterolemia, unspecified; E78.5 Hyperlipidemia, unspecified; F40.240 Claustrophobia; G47.30 Sleep apnea, unspecified; I10 Essential (primary) hypertension; J45.909 Unspecified asthma, uncomplicated; K21.9 Gastro-esophageal reflux disease without esophagitis; Z86.73 Personal history of transient ischemic attack (TIA), and cerebral infarction without residual deficits; Z87.891 Personal history of nicotine dependence; F41.9 Anxiety disorder, unspecified
CPT/HCPCS: 36415; 70450; 71045; 80053; 80061; 81001; 81025; 82948; 83036; 83735; 84100; 84484; 84703; 85025; 85610; 85730; 86850; 86900; 93005; 93306; 93880; 96360; 96361; 96372; 99285; G0378; J1650; J3480; J7030

== ENCOUNTER 2018-09-11 10:43 | Emergency (ER) | payer OTHER ==
[2018-09-11 10:52] VITALS: BMI 32.3
[2018-09-11] MEDS ORDERED: Sodium Chloride 0.9% 1,000 ML IV STA (12:52)
[2018-09-11] MEDS ORDERED: Sodium Chloride 0.9% 1,000 ML ONE (13:07)
[2018-09-11 13:19] LABS: BASO % 0.7 % (0.0-2.0); EOS # 0.1 K/uL (0.0-0.7); EOS % 1.4 % (0.0-4.0); HEMOGLOBIN 11.4 g/dL (11.0-16.0); LYMPH # 1.6 K/uL (1.0-4.3); LYMPH % 32.4 % (20.0-40.0); MEAN CORPUSCULAR HEMOGLOBIN 25.2 pg (27.0-31.0); MEAN CORPUSCULAR HGB CONC 32.7 g/dL (33.0-37.0); MEAN PLATELET VOLUME 7.9 fL (7.2-11.7); MONO # 0.5 K/uL (0.0-0.8); MONO % 10.9 % (0.0-10.0); NEUT # 2.7 K/uL (1.8-7.0); NEUT % 54.6 % (50.0-75.0); NRBC % 0.1 % (0.0-2.0); RBC 4.52 Mil/uL (3.80-5.20); RED CELL DISTRIBUTION WIDTH 14.3 % (11.5-14.5); WHITE BLOOD COUNT 4.9 K/uL (4.8-10.8)
[2018-09-11 13:20] LABS: SQUAMOUS EPITHIAL 14 /hpf (0-5); URINE BACTERIA OCC (<OCC); URINE BILIRUBIN NEGATIVE (NEGATIVE); URINE BLOOD 3+ (NEGATIVE); URINE CLARITY Hazy (Clear); URINE COLOR Yellow (YELLOW); URINE GLUCOSE (UA) NORMAL (Normal); URINE LEUKOCYTE ESTERASE NEG Leu/uL (Negative); URINE PROTEIN NEGATIVE (NEGATIVE); URINE UROBILINOGEN NORMAL mg/dL (0.2-1.0)
[2018-09-11 13:31] LABS: ALB/GLOB RATIO 1.3 (1.0-2.1); ALBUMIN 4.3 g/dL (3.5-5.0); ALT/SGPT 19 U/L (9-52); AST/SGOT 24 U/L (14-36); BLOOD UREA NITROGEN 14 mg/dL (7-17); CALCIUM 9.5 mg/dl (8.6-10.4); GFR NON-AFRICAN AMERICAN > 60
[2018-09-11] MEDS ORDERED: Potassium Chloride 20 mEq/15 ml LIQ UD PO STA (13:52)
[2018-09-11 14:20] VITALS: O2SAT 100
[2018-09-11] MEDS ORDERED: Potassium Chloride 20 mEq/15 ml LIQ UD ONE (14:21)
--- NOTE | 2018-09-11 14:28 | C.PDOC ---
History Of Present Illness 53 year old female presents to ED with complaint of throbbing pain to the pelvis and vaginal bleeding that began this morning. Patient states that she is 3 years post-menopausal. She denies nausea, vomiting, fever, chills, and dysuria. Time Seen by Provider: 09/11/18 11:27 Chief Complaint (Nursing): Female Genitourinary History Per: Patient History/Exam Limitations: no limitations Onset/Duration Of Symptoms: Hrs Current Symptoms Are (Timing): Still Present Quality Of Discomfort: Other (throbbing) Associated Symptoms: Other (pelvic pain ). denies: Fever, Chills, Nausea, Vomiting, Urinary Symptoms Alleviating Factors: None Abnormal Vaginal Bleeding: Yes Past Medical History Reviewed: Historical Data, Nursing Documentation, Vital Signs Vital Signs: Last Vital Signs Temp 98.7 F 09/11/18 14:20 Pulse 65 09/11/18 14:20 Resp 16 09/11/18 14:20 BP 127/89 09/11/18 14:20 Pulse Ox 100 09/11/18 14:20 - Medical History PMH: Anemia, Anxiety, Arthritis, Asthma, Back Problems, Depression, Diverticulitis, Fractures (R ankle, with hardware), Gastritis, Hiatal Hernia, HTN, Hypercholesterolemia, Migraine, Sleep Apnea, TIA (May 2017) Denies: HIV, Chronic Kidney Disease Surgical History: Cholecystectomy, Endoscopy - [facility] Procedures RADICAL EXCIS SKIN LES (08/18/14) Family History: States: Unknown Family Hx - Social History Hx Tobacco Use: Yes Hx Alcohol Use: No (socially) Hx Substance Use: No - Immunization History Hx Tetanus Toxoid Vaccination: No Hx Influenza Vaccination: Yes (2018) Hx Pneumococcal Vaccination: No Review Of Systems Constitutional: Negative for: Fever, Chills Gastrointestinal: Negative for: Nausea, Vomiting, Abdominal Pain Genitourinary: Positive for: Vaginal Bleeding, Pelvic Pain. Negative for: Dysuria, Hematuria Physical Exam - Physical Exam Appears: Well, Non-toxic, No Acute Distress Skin: Normal Color, Warm, Dry Head: Atraumatic, Normacephalic Neck: Normal ROM, Supple Chest: Symmetrical, No Deformity Cardiovascular: Rhythm Regular, No Murmur Respiratory: No Accessory Muscle Use, No Rales, No Rhonchi, No Wheezing Gastrointestinal/Abdominal: Soft, Tenderness (mild suprapubic tenderness) Extremity: Capillary Refill (<2 seconds) Neurological/Psych: Oriented x3, Normal Speech, Normal Cognition ED Course And Treatment - Laboratory Results Result Diagrams: 09/11/18 13:06 09/11/18 13:06 Lab Results: Total Bilirubin 0.3 mg/dL (0.2-1.3) 09/11/18 13:06 AST 24 U/L (14-36) 09/11/18 13:06 ALT 19 U/L (9-52) 09/11/18 13:06 Alkaline Phosphatase 100 U/L (38-126) 09/11/18 13:06 Total Protein 7.5 g/dL (6.3-8.3) 09/11/18 13:06 Albumin 4.3 g/dL (3.5-5.0) 09/11/18 13:06 Globulin 3.2 gm/dL (2.2-3.9) 09/11/18 13:06 Albumin/Globulin Ratio 1.3 (1.0-2.1) 09/11/18 13:06 Urine Color Yellow (YELLOW) 09/11/18 13:06 Urine Clarity Hazy (Clear) 09/11/18 13:06 Urine pH 7.0 (5.0-8.0) 09/11/18 13:06 Ur Specific [place] 1.005 (1.003-1.030) 09/11/18 13:06 Urine Protein Negative mg/dL (NEGATIVE) 09/11/18 13:06 Urine Glucose (UA) Normal mg/dL (Normal) 09/11/18 13:06 Urine Ketones Negative mg/dL (NEGATIVE) 09/11/18 13:06 Urine Blood 3+ (NEGATIVE) H 09/11/18 13:06 Urine Nitrate Negative (NEGATIVE) 09/11/18 13:06 Urine Bilirubin Negative (NEGATIVE) 09/11/18 13:06 Urine Urobilinogen Normal mg/dL (0.2-1.0) 09/11/18 13:06 Ur Leukocyte Esterase Neg Shahana/uL (Negative) 09/11/18 13:06 Urine WBC (Auto) 2 /hpf (0-5) 09/11/18 13:06 Urine RBC (Auto) 4 /hpf (0-3) H 09/11/18 13:06 Ur Squamous Epith Cells 14 /hpf (0-5) H 09/11/18 13:06 Urine Bacteria Occ (<OCC) H 09/11/18 13:06 Beta HCG, Quant < 2.39 mIU/ML 09/11/18 13:06 O2 Sat by Pulse Oximetry: 100 (in RA) - CT Scan/US Pelvis/Transvaginal US Other Rad Studies (CT/US): Interpreted By Me, Read By Radiologist CT/US Interpretation: Accession No. : [id number]. Patient Name / ID : HUSSEIN FRANCIS / [id number]. Exam Date : 09/11/2018 13:45:04 ( Approved ). Study Comment : Sex / Age : F / [id number]. Creator : Mandy Strauss MD. D ictator : Mandy Strauss MD. Accounting Technician : Ultrasound Technol : Mandy Strauss MD. Approver2 : Report Date : 09/11/2018 15:03:09. My Comment : . This report is currently processing and HAS NOT BEEN OFFICIALLY SIGNED BY THE PHYSICIAN - ESTIMATED TIME OF APPROVAL IS 09/11/2018 15:08. Date of service: 09/11/2018. HISTORY: post menopausal bleeding. COMPARISON: None available. TECHNIQUE: Real-time transabdominal pelvic ultrasound was performed. In addition a transvaginal pelvic ultrasound was necessary to better depict pelvic anatomy. FINDINGS: UTERUS: Measures 10.2 x 6.8 x 7.9 cm. Retroverted. 1.5 x 1.0 x 1.2 cm heterogeneous mass consistent with anterior mid uterine fibroid. 1.2 x 0.8 x 1.1 cm heterogeneous uterine mass consistent with submucosal fibroid. ENDOMETRIUM: Measures 6 mm in diameter. CERVIX: No cervical abnormality identified. RIGHT OVARY: Measures 3.7 x 3.9 x 3.7 cm. Blood flow is demonstrated. 2.6 x 2.0 x 2.3 cm right ovarian cyst. LEFT OVARY: Measures 2.4 x 1.3 x 2.9 a cm. Blood flow is demonstrated. FREE FLUID: No significant free fluid noted. OTHER FINDINGS: None. IMPRESSION: Uterine fibroids as above. 2.6 x 2.0 x 2.3 cm right ovarian cyst. Progress Note: Labs ordered with B-HCG, CMP, CBC, UA, and urine culture. Pelvis/Transvaginal US ordered for patient. Patient given potassium chloride, IV fluids, and toradol IVP. On re-evaluation patient feels better and is stable to be d/c home with OBGYN follow up. Disposition - Disposition Disposition: HOME/ ROUTINE Disposition Time: 16:05 Condition: STABLE Additional Instructions: Follow up with your PMD and OBGYN within 1-2 days. Return to ED immediately if feel worse. 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 (Laurence Gross) - Scribe Statement The provider has reviewed the documentation as recorded by the Scribe (Laurence Gross) All medical record entries made by the Scribe were at my direction and personally dictated by me. I have reviewed the chart and agree that the record accurately reflects my personal performance of the history, physical exam, medical decision making, and the department course for this patient. I have also personally directed, reviewed, and agree with the discharge instructions and disposition.
--- NOTE | 2018-09-11 15:06 | US ---
Date of service: 09/11/2018 HISTORY: post menopausal bleeding COMPARISON: None available. TECHNIQUE: Real-time transabdominal pelvic ultrasound was performed. In addition a transvaginal pelvic ultrasound was necessary to better depict pelvic anatomy. FINDINGS: UTERUS: Measures 10.2 x 6.8 x 7.9 cm. Retroverted. 1.5 x 1.0 x 1.2 cm heterogeneous mass consistent with anterior mid uterine fibroid. 1.2 x 0.8 x 1.1 cm heterogeneous uterine mass consistent with submucosal fibroid. ENDOMETRIUM: Measures 6 mm in diameter. CERVIX: No cervical abnormality identified. RIGHT OVARY: Measures 3.7 x 3.9 x 3.7 cm. Blood flow is demonstrated. 2.6 x 2.0 x 2.3 cm right ovarian cyst. LEFT OVARY: Measures 2.4 x 1.3 x 2.9 a cm. Blood flow is demonstrated. FREE FLUID: No significant free fluid noted. OTHER FINDINGS: None. IMPRESSION: Uterine fibroids as above. 2.6 x 2.0 x 2.3 cm right ovarian cyst.
[2018-09-11 16:28] VITALS: BP 136/88; PULSE 70; RESP 17; TEMP 98.5
== END 2018-09-11 16:26 | disposition home or self-care (01) ==
LOC: C.ER 10:43
DX: D25.9 Leiomyoma of uterus, unspecified (principal); N95.0 Postmenopausal bleeding; E87.6 Hypokalemia
CPT/HCPCS: 76830; 76856; 80053; 81001; 84702; 85025; 87086; 96374; 99285; J1885; J7030

== ENCOUNTER 2018-10-20 10:45 | Emergency (ER) | payer OTHER ==
[2018-10-20 10:45] VITALS: BMI 32.3
[2018-10-20 10:54] VITALS: RESP 18; O2SAT 96
[2018-10-20] MEDS ORDERED: Sodium Chloride 0.9% 1,000 ML IV STA (11:39)
[2018-10-20] MEDS ORDERED: Iohexol 240 (50 ml) PO STA (11:39)
[2018-10-20 11:57] LABS: BASO % 0.7 % (0.0-2.0); EOS # 0.1 K/uL (0.0-0.7); EOS % 2.3 % (0.0-4.0); HEMOGLOBIN 10.9 g/dL (11.0-16.0); LYMPH # 1.8 K/uL (1.0-4.3); LYMPH % 33.8 % (20.0-40.0); MEAN CELL VOLUME 75.3 fL (81.0-99.0); MEAN CORPUSCULAR HEMOGLOBIN 24.8 pg (27.0-31.0); MEAN CORPUSCULAR HGB CONC 32.9 g/dL (33.0-37.0); MEAN PLATELET VOLUME 7.6 fL (7.2-11.7); MONO # 0.5 K/uL (0.0-0.8); MONO % 8.7 % (0.0-10.0); NEUT # 2.9 K/uL (1.8-7.0); NEUT % 54.5 % (50.0-75.0); NRBC % 0.1 % (0.0-2.0); RBC 4.41 Mil/uL (3.80-5.20); RED CELL DISTRIBUTION WIDTH 14.7 % (11.5-14.5); WHITE BLOOD COUNT 5.3 K/uL (4.8-10.8)
[2018-10-20] MEDS ORDERED: Iohexol 240 (50 ml) ONE (12:00)
[2018-10-20] MEDS ORDERED: Sodium Chloride 0.9% 1,000 ML ONE (12:00)
[2018-10-20 12:08] LABS: ALB/GLOB RATIO 1.3 (1.0-2.1); ALT/SGPT 22 U/L (9-52); AST/SGOT 18 U/L (14-36); BLOOD UREA NITROGEN 13 mg/dL (7-17); CALCIUM 9.4 mg/dl (8.6-10.4); GFR NON-AFRICAN AMERICAN > 60; LIPASE 49 U/L (23-300)
--- NOTE | 2018-10-20 12:12 | C.PDOC ---
History Of Present Illness 53 y/o female, with history of diverticulitis, presents to ED complaining of low abdominal pain since this morning. States she thinks she has hemorrhoids and that she noticed blood in toilet paper. Patient denies nausea, vomiting, d iarrhea, fever, chills, urinary symptoms, or back pain. Time Seen by Provider: 10/20/18 10:57 Chief Complaint (Nursing): Abdominal Pain History Per: Patient History/Exam Limitations: no limitations Onset/Duration Of Symptoms: Hrs Current Symptoms Are (Timing): Still Present Past Medical History Reviewed: Historical Data, Nursing Documentation, Vital Signs Vital Signs: Last Vital Signs Temp 98.4 F 10/20/18 10:48 Pulse 77 10/20/18 10:48 Resp 18 10/20/18 10:48 BP 132/90 10/20/18 10:48 Pulse Ox 96 10/20/18 10:48 Primary Care Provider: Yakov Powell - Medical History PMH: Anemia, Anxiety, Arthritis, Asthma, Back Problems, Depression, Diverticulitis, Fractures (R ankle, with hardware), Gastritis, Hiatal Hernia, HTN, Hypercholesterolemia, Migraine, Sleep Apnea, TIA (May 2017) Denies: HIV, Chronic Kidney Disease Surgical History: Cholecystectomy, Endoscopy - [facility] Procedures RADICAL EXCIS SKIN LES (08/18/14) Family History: States: No Known Family Hx - Social History Hx Tobacco Use: Yes Hx Alcohol Use: No (socially) Hx Substance Use: No - Immunization History Hx Tetanus Toxoid Vaccination: No Hx Influenza Vaccination: Yes (2018) Hx Pneumococcal Vaccination: No Review Of Systems Except As Marked, All Systems Reviewed And Found Negative. Constitutional: Negative for: Fever, Chills Gastrointestinal: Positive for: Abdominal Pain. Negative for: Nausea, Vomiting, Diarrhea Genitourinary: Negative for: Dysuria, Hematuria Musculoskeletal: Negative for: Back Pain Physical Exam - Physical Exam Appears: Non-toxic, No Acute Distress Skin: Warm, Dry Head: Normacephalic Eye(s): bilateral: Normal Inspection Oral Mucosa: Moist Neck: Supple Cardiovascular: Rhythm Regular, No Murmur Respiratory: Normal Breath Sounds, No Rales, No Rhonchi, No Wheezing Gastrointestinal/Abdominal: Soft, Tenderness (LLQ), No Distention, No Guarding, No Rebound Back: No CVA Tenderness Extremity: Bilateral: Normal Color And Temperature Neurological/Psych: Oriented x3, Normal Speech ED Course And Treatment - Laboratory Results Result Diagrams: 10/20/18 11:50 10/20/18 11:50 Lab Results: Total Bilirubin 0.5 mg/dL (0.2-1.3) 10/20/18 11:50 AST 18 U/L (14-36) 10/20/18 11:50 ALT 22 U/L (9-52) 10/20/18 11:50 Alkaline Phosphatase 82 U/L (38-126) 10/20/18 11:50 Total Protein 7.2 g/dL (6.3-8.3) 10/20/18 11:50 Albumin 4.0 g/dL (3.5-5.0) 10/20/18 11:50 Globulin 3.2 gm/dL (2.2-3.9) 10/20/18 11:50 Albumin/Globulin Ratio 1.3 (1.0-2.1) 10/20/18 11:50 Lipase 49 U/L (23-300) 10/20/18 11:50 O2 Sat by Pulse Oximetry: 96 (RA) Pulse Ox Interpretation: Normal - CT Scan/US Abd/pel CT Other Rad Studies (CT/US): Read By Radiologist, Radiology Report Reviewed CT/US Interpretation: FINDINGS: LOWER THORAX: Moderate size hiatus hernia is again noted. No evidence of pleural effusion. LIVER: Unremarkable. No gross lesion or ductal dilatation. GALLBLADDER AND BILE DUCTS: Status post cholecystectomy. PANCREAS: Unremarkable. No gross lesion or ductal dilatation. SPLEEN: Unremarkable. ADRENALS: Unremarkable. No mass. KIDNEYS AND URETERS: Unremarkable. No hydronephrosis. No solid mass. VASCULATURE: Unremarkable. No aortic aneurysm. No aortic atherosclerotic calcification or mural plaque present. BOWEL: Colonic diverticulosis are again noted. No definite CT evidence of diverticulitis. No evidence of bowel obstruction. APPENDIX: Normal appendix. PERITONEUM: Unremarkable. No free fluid. No free air. LYMPH NODES: Unremarkable. No enlarged lymph nodes. BLADDER: Unremarkable. REPRODUCTIVE: The uterus is enlarged likely contains fibroid. BONES: No acute fracture. OTHER FINDINGS: None. IMPRESSION: Colonic diverticulosis without evidence of diverticulitis. No evidence of pancreatitis. Enlarged uterus contains fibroid. Progress Note: Abd/Pelvis CT ordered. Patient given IV fluids. On re-evaluation patient feels better, denies pain. she was instructed to f/u with GI to find the source of rectal bleeding. Patient sts her last colonoscopy was 2 yrs ago and wa s ok. Patient verbalized understanding of necessity to be evaluated by GI within short time period. Disposition - Disposition Disposition: HOME/ ROUTINE Disposition Time: 14:56 Condition: STABLE Additional Instructions: Follow up with Full Service Supervisor and OBGYN within 2-3 days. Return to ED if feel worse. 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 - Scribe Statement The provider has reviewed the documentation as recorded by the Scribe Dulce Tamez All medical record entries made by the Sadieibe were at my direction and personally dictated by me. I have reviewed the chart and agree that the record accurately reflects my personal performance of the history, physical exam, medical decision making, and the department course for this patient. I have also personally directed, reviewed, and agree with the discharge instructions and disposition.
[2018-10-20 12:22] LABS: HCG,QUALITATIVE URINE NEGATIVE (NEGATIVE)
[2018-10-20 12:30] LABS: SQUAMOUS EPITHIAL 1 /hpf (0-5); URINE BACTERIA RARE (<OCC); URINE BILIRUBIN NEGATIVE (NEGATIVE); URINE BLOOD 2+ (NEGATIVE); URINE CLARITY Clear (Clear); URINE COLOR Yellow (YELLOW); URINE GLUCOSE (UA) NORMAL (Normal); URINE LEUKOCYTE ESTERASE NEG Leu/uL (Negative); URINE PROTEIN NEGATIVE (NEGATIVE); URINE UROBILINOGEN NORMAL mg/dL (0.2-1.0)
[2018-10-20] MEDS ORDERED: Iodixanol 320 MG/ML 100 ML BOTTLE IV ONE (13:02)
--- NOTE | 2018-10-20 14:50 | CT ---
Date of service: 10/20/2018 PROCEDURE: CT Abdomen and Pelvis with contrast HISTORY: LLQ abd pain COMPARISON: Comparison is made with 07/22/2017 TECHNIQUE: Contrast dose: 100 mL of Visipaque 320 intravenously. Radiation dose: Total exam DLP = 889.83 mGy-cm. This CT exam was performed using one or more of the following dose reduction techniques: Automated exposure control, adjustment of the mA and/or kV according to patient size, and/or use of iterative reconstruction technique. FINDINGS: LOWER THORAX: Moderate size hiatus hernia is again noted. No evidence of pleural effusion. LIVER: Unremarkable. No gross lesion or ductal dilatation. GALLBLADDER AND BILE DUCTS: Status post cholecystectomy. PANCREAS: Unremarkable. No gross lesion or ductal dilatation. SPLEEN: Unremarkable. ADRENALS: Unremarkable. No mass. KIDNEYS AND URETERS: Unremarkable. No hydronephrosis. No solid mass. VASCULATURE: Unremarkable. No aortic aneurysm. No aortic atherosclerotic calcification or mural plaque present. BOWEL: Colonic diverticulosis are again noted. No definite CT evidence of diverticulitis. No evidence of bowel obstruction. APPENDIX: Normal appendix. PERITONEUM: Unremarkable. No free fluid. No free air. LYMPH NODES: Unremarkable. No enlarged lymph nodes. BLADDER: Unremarkable. REPRODUCTIVE: The uterus is enlarged likely contains fibroid. BONES: No acute fracture. OTHER FINDINGS: None. IMPRESSION: Colonic diverticulosis without evidence of diverticulitis. No evidence of pancreatitis. Enlarged uterus contains fibroid.
[2018-10-20 14:58] VITALS: BP 112/66; PULSE 54; TEMP 98.3
== END 2018-10-20 15:38 | disposition home or self-care (01) ==
LOC: C.ER 10:45
DX: K57.30 Diverticulosis of large intestine without perforation or abscess without bleeding (principal); D25.9 Leiomyoma of uterus, unspecified; R10.32 Left lower quadrant pain
CPT/HCPCS: 74177; 80053; 81001; 83690; 84703; 85025; 96360; 99285; J7030; Q9966; Q9967